=== PATIENT | female | born 1960 | race Caucasian/White ===

== ENCOUNTER 2019-02-06 20:35 | Emergency (ER) | payer OTHER ==
[~2019-02-06] VITALS: Ht 162 cm; Wt 73.8 kg
[2019-02-06 20:48] VITALS: BP 135/91
--- NOTE | 2019-02-06 21:37 | NUR ---
Registration to nurses station at this time to report that pt LWBS
== END 2019-02-06 21:22 | disposition left against medical advice (07) ==
LOC: ER 20:36
DX: M79.622 Pain in left upper arm (principal); R22.1 Localized swelling, mass and lump, neck; R22.32 Localized swelling, mass and lump, left upper limb

== ENCOUNTER 2019-03-01 17:05 | Emergency (ER) | payer SELFPAY ==
[~2019-03-01] VITALS: Ht 162.5 cm; Wt 73.8 kg
--- NOTE | 2019-03-01 17:14 | ED GI ---
General Chief Complaint: Abdominal/GI Problems Stated Complaint: WEAKNESS Nursing Triage Note: Pt to ED via EMS. Pt c/o diarrhea, and L shoulder pain. Diarrhea began with meth use 4 days ago. Pt reports shoulder pain is ongoing. Pt c/o nausea and cramping. Sepsis Screen: No Definite Risk Source of Information: Patient, EMS Exam Limitations: No Limitations History of Present Illness Date Seen by Provider: Mar 01, 2019 Time Seen by Provider: 17:12 Initial Comments To ER per EMS from the [facility] where she is living with reports of a 4 day history of crampy abdominal pain diffusely, non-bloody diarrhea, nausea. This began after using methamphetamine which she uses via "snorting" a few times a week. She denies alcohol or other drug use. She just moved here from [place], states that she is supposed to be on medication such as Carafate and Protonix for her ulcers and is supposed to be on an unknown medication for her heart following a "silent heart attack" 5 years ago. Also complains of left shoulder pain 3 months without preceding injury, pain worse with movement. Timing/Duration: 3-4 Days Severity/Quality: Cramping Location: Generalized Abdomen Radiation: No Radiation Activities at Onset: None Associated Symptoms: Denies Symptoms Allergies and Home Medications Allergies Coded Allergies: No Known Drug Allergies (Unverified , 03/01/19) Patient Home Medication List Home Medication List Reviewed: Yes Review of Systems Review of Systems Constitutional: see HPI EENTM: No Symptoms Reported Respiratory: No Symptoms Reported Cardiovascular: No Symptoms Reported Gastrointestinal: See HPI, Abdominal Pain, Diarrhea, Nausea Genitourinary: No Symptoms Reported Musculoskeletal: no symptoms reported Skin: no symptoms reported Psychiatric/Neurological: No Symptoms Reported Endocrine: No Symptoms Reported Hematologic/Lymphatic: No Symptoms Reported Past Enmdnrg-Ojivme-Xkamqv Hx Patient Social History Type Used: Cigarettes 2nd Hand Smoke Exposure: Yes Recent Foreign Travel: No (N) Contact w/Someone Who Travel: No Recent Infectious Disease Expo: No Recent Hopitalizations: No Immunizations Up To Date PED Vaccines UTD: Yes Seasonal Allergies Seasonal Allergies: No Past Medical History Surgeries: No Respiratory: No Cardiac: Yes Heart Attack, Hypertension Neurological: Yes (heat stroke) Genitourinary: No Ulcer Musculoskeletal: No Endocrine: No HEENT: No Cancer: No Psychosocial: No Integumentary: No Physical Exam Vital Signs Vital Signs - First Documented 12/31/19 17:05 Temp 37.8 Pulse 96 Resp 20 B/P (MAP) 106/69 (81) Pulse Ox 97 O2 Delivery Room Air Capillary Refill : Less Than 3 Seconds Height/Weight/BMI Height: '" Weight: lbs. oz. kg; 27.00 BMI Method: General Appearance: WD/WN, no apparent distress HEENT: PERRL/EOMI, normal ENT inspection Neck: non-tender, full range of motion Respiratory: no respiratory distress, no accessory muscle use Gastrointestinal: normal bowel sounds, non tender, soft Extremities: normal range of motion, non-tender Neurologic/Psychiatric: alert, normal mood/affect, oriented x 3 Skin: normal color, warm/dry Progress/Results/Core Measures Results/Orders Lab Results Laboratory Tests Test 03/01/19 17:10 03/01/19 18:25 Range/Units White Blood Count 12.0 H 4.3-11.0 10^3/uL Red Blood Count 4.29 L 4.35-5.85 10^6/uL Hemoglobin 12.3 11.5-16.0 G/DL Hematocrit 37 35-52 % Mean Corpuscular Volume 86 80-99 FL Mean Corpuscular Hemoglobin 29 25-34 PG Mean Corpuscular Hemoglobin Concent 33 32-36 G/DL Red Cell Distribution Width 13.0 10.0-14.5 % Platelet Count 228 130-400 10^3/uL Mean Platelet Volume 11.1 H 7.4-10.4 FL Neutrophils (%) (Auto) 74 42-75 % Lymphocytes (%) (Auto) 10 L 12-44 % Monocytes (%) (Auto) 15 H 0-12 % Eosinophils (%) (Auto) 1 0-10 % Basophils (%) (Auto) 0 0-10 % Neutrophils # (Auto) 8.9 H 1.8-7.8 X 10^3 Lymphocytes # (Auto) 1.3 1.0-4.0 X 10^3 Monocytes # (Auto) 1.7 H 0.0-1.0 X 10^3 Eosinophils # (Auto) 0.1 0.0-0.3 10^3/uL Basophils # (Auto) 0.0 0.0-0.1 10^3/uL Sodium Level 134 L 135-145 MMOL/L Potassium Level 3.3 L 3.6-5.0 MMOL/L Chloride Level 103 98-107 MMOL/L Carbon Dioxide Level 18 L 21-32 MMOL/L Anion Gap 13 5-14 MMOL/L Blood Urea Nitrogen 10 7-18 MG/DL Creatinine 0.87 0.60-1.30 MG/DL Estimat Glomerular Filtration Rate > 60 BUN/Creatinine Ratio 11 Glucose Level 113 H 70-105 MG/DL Calcium Level 8.1 L 8.5-10.1 MG/DL Corrected Calcium 8.6 8.5-10.1 MG/DL Total Bilirubin 0.3 0.1-1.0 MG/DL Aspartate Amino Transf (AST/SGOT) 10 5-34 U/L Alanine Aminotransferase (ALT/SGPT) 10 0-55 U/L Alkaline Phosphatase 64 40-136 U/L Total Protein 5.9 L 6.4-8.2 GM/DL Albumin 3.4 3.2-4.5 GM/DL Urine Color YELLOW Urine Clarity CLEAR Urine pH 6.0 5-9 Urine Specific [place] <=1.005 1.016-1.022 Urine Protein NEGATIVE NEGATIVE Urine Glucose (UA) NEGATIVE NEGATIVE Urine Ketones NEGATIVE NEGATIVE Urine Nitrite NEGATIVE NEGATIVE Urine Bilirubin NEGATIVE NEGATIVE Urine Urobilinogen 0.2 < = 1.0 MG/DL Urine Leukocyte Esterase NEGATIVE NEGATIVE Urine RBC (Auto) NEGATIVE NEGATIVE Urine RBC NONE /HPF Urine WBC RARE /HPF Urine Squamous Epithelial Cells 0-2 /HPF Urine Crystals NONE /LPF Urine Bacteria MODERATE H /HPF Urine Casts NONE /LPF Urine Mucus NEGATIVE /LPF Urine Culture Indicated NO Urine Opiates Screen POSITIVE H NEGATIVE Urine Oxycodone Screen NEGATIVE NEGATIVE Urine Methadone Screen NEGATIVE NEGATIVE Urine Propoxyphene Screen NEGATIVE NEGATIVE Urine Barbiturates Screen NEGATIVE NEGATIVE Ur Tricyclic Antidepressants Screen NEGATIVE NEGATIVE Urine Phencyclidine Screen NEGATIVE NEGATIVE Urine Amphetamines Screen NEGATIVE NEGATIVE Urine Methamphetamines Screen NEGATIVE NEGATIVE Urine Benzodiazepines Screen NEGATIVE NEGATIVE Urine Cocaine Screen NEGATIVE NEGATIVE Urine Cannabinoids Screen NEGATIVE NEGATIVE My Orders Orders - ALLISON TAYLOR INCOMING INSPECTOR Cbc With Automated Diff (03/01/19 17:10) Comprehensive Metabolic Panel (03/01/19 17:10) Ua Culture If Indicated (03/01/19 17:10) Drug Screen Stat (Urine) (03/01/19 17:10) Ed Iv/Invasive Line Start (03/01/19 17:10) Lactated Ringers (Lr 1000 Ml Iv Solution (03/01/19 17:15) Ondansetron Injection (Zofran Injectio (03/01/19 17:15) Hyoscyamine Sl Tablet (Levsin Sl Tablet) (03/01/19 17:15) Ibuprofen Tablet (Motrin Tablet) (03/01/19 17:15) Shoulder, Left, 3 Views (03/01/19 17:14) Chest 1 View, Ap/Pa Only (03/01/19 17:14) Naloxone Injection (Narcan Injection) (03/01/19 18:55) Medications Given in ED Current Medications Medications Dose Ordered Sig/Carmelo Route Start Time Stop Time Status Last Admin Dose Admin Hyoscyamine Sulfate 0.25 mg ONCE ONCE PO 03/01/19 17:15 03/01/19 17:16 DC 03/01/19 17:17 0.25 MG Ibuprofen 800 mg ONCE ONCE PO 03/01/19 17:15 03/01/19 17:16 DC 03/01/19 17:18 800 MG Naloxone HCl 0.4 mg STK-MED ONCE .ROUTE 03/01/19 18:55 03/01/19 18:59 DC 03/01/19 18:59 0.4 MG Ondansetron HCl 8 mg ONCE ONCE IVP 03/01/19 17:15 03/01/19 17:16 DC 03/01/19 17:17 8 MG Vital Signs/I&O 03/01/19 17:05 Temp 37.8 Pulse 96 Resp 20 B/P (MAP) 106/69 (81) Pulse Ox 97 O2 Delivery Room Air Blood Pressure Mean: 81 Diagnostic Imaging Diagonstic Imaging: Xray Comments NAME: MARICHUY BUSTAMANTE [facility] REC#: [id number] PT STATUS: REG ER : 1960 PHYSICIAN: ALLISON TAYLOR APRN ADMIT DATE: 03/01/19/ER Signed Date of Exam:03/01/19 CHEST 1 VIEW, AP/PA ONLY INDICATION: Chest pain, nausea. COMPARISON: None. FINDINGS: Single view of the chest demonstrates clear lungs bilaterally. The heart is normal. There is no pneumothorax. Osseous structures are normal. IMPRESSION: Negative chest. Dictated by: Dictated on workstation # [id number] Dict: 03/01/191750 Trans: 03/01/191754 [id number] Interpreted by: RAHUL TRENT Electronically signed by: RAHUL TRENT 03/01/191754 Departure Communication (Admissions) 1906-patient was alert and oriented upon arrival talking on the cell phone and ambulatory to the bathroom. At this time she has snoring respirations, and arousable to loud verbal stimuli or painful stimuli such as a sternal rub. She then went back to sleep, 0.4 mg of Narcan was given with no effect, she then aw akened with a sternal rub to have a coherent conversation. We will observe her for a bit longer for this reason. Impression Primary Impression: Nausea vomiting and diarrhea Additional Impression: Substance abuse Disposition: 01 HOME, SELF-CARE Condition: Improved Departure-Patient Inst. Decision time for Depature: 18:55 Referrals: NO,LOCAL PHYSICIAN (PCP/Family) Primary Care Physician Patient Instructions: No Instuctions Given Add. Discharge Instructions: 1. Drink plenty of fluids such as Gatorade or Pedialyte 2. Return to ER for any concerns 3. Follow-up with one of the physicians listed. All discharge instructions reviewed with patient and/or family. Voiced underst anding. Work/School Note: Local Medical Staff Listing ALLISON TAYLOR APRN Mar 01, 2019 17:14
[2019-03-01] MEDS ORDERED: ONDANSETRON 4 MG/2 ML (SDV) Z0FRAN IVP ONE (17:15)
[2019-03-01] MEDS ORDERED: HYOSCYAMINE 0.125 MG (LEVSIN) TAB PO ONE (17:15)
[2019-03-01] MEDS ORDERED: IBUPROFEN 800 MG (MOTRIN) TAB PO ONE (17:15)
[2019-03-01] MEDS ORDERED: LACTATED RINGERS 1,000 ML IV SCH (17:15)
[2019-03-01 17:22] LABS: BASOPHILS % (AUTO) 0 % (0-10); EOSINOPHILS # (AUTO) 0.1 10^3/uL (0.0-0.3); EOSINOPHILS % (AUTO) 1 % (0-10); HEMATOCRIT 37 % (35-52); HEMOGLOBIN 12.3 G/DL (11.5-16.0); LYMPHOCYTES # (AUTO) 1.3 X 10^3 (1.0-4.0); LYMPHOCYTES % (AUTO) 10 % (12-44); MEAN CORPUSCULAR HEMOGLOBIN 29 PG (25-34); MEAN CORPUSCULAR HGB CONC 33 G/DL (32-36); MEAN CORPUSCULAR VOLUME 86 FL (80-99); MEAN PLATELET VOLUME 11.1 FL (7.4-10.4); MONOCYTES # (AUTO) 1.7 X 10^3 (0.0-1.0); MONOCYTES % (AUTO) 15 % (0-12); NEUTROPHILS # (AUTO) 8.9 X 10^3 (1.8-7.8); NEUTROPHILS % (AUTO) 74 % (42-75); PLATELET COUNT 228 10^3/uL (130-400)
[2019-03-01 17:38] LABS: ALANINE AMINOTRANSFERASE 10 U/L (0-55); ALBUMIN 3.4 GM/DL (3.2-4.5); ALKALINE PHOSPHATASE 64 U/L (40-136); BILIRUBIN,TOTAL 0.3 MG/DL (0.1-1.0); BUN/CREATININE RATIO 11; CALCIUM 8.1 MG/DL (8.5-10.1); CARBON DIOXIDE 18 MMOL/L (21-32); CHLORIDE 103 MMOL/L (98-107); CREATININE SERUM 0.87 MG/DL (0.60-1.30); GFR ESTIMATED > 60; GLUCOSE 113 MG/DL (70-105); POTASSIUM 3.3 MMOL/L (3.6-5.0); SODIUM 134 MMOL/L (135-145); TOTAL PROTEIN 5.9 GM/DL (6.4-8.2)
--- NOTE | 2019-03-01 17:45 | NUR ---
1 liter NS from EMS infused
--- NOTE | 2019-03-01 17:53 | Diagnostic Imaging Report ---
INDICATION: Left shoulder pain. COMPARISON: None. FINDINGS: Three views of the left shoulder demonstrate no fracture or dislocation. Articular surface is normal. No osseous lesion. IMPRESSION: Negative left shoulder. Dictated by: Dictated on workstation # [id number]
--- NOTE | 2019-03-01 17:53 | Diagnostic Imaging Report ---
INDICATION: Chest pain, nausea. COMPARISON: None. FINDINGS: Single view of the chest demonstrates clear lungs bilaterally. The heart is normal. There is no pneumothorax. Osseous structures are normal. IMPRESSION: Negative chest. Dictated by: Dictated on workstation # [id number]
[2019-03-01 18:34] LABS: BILIRUBIN,URINE NEGATIVE (NEGATIVE); CLARITY,URINE CLEAR; COLOR,URINE YELLOW; GLUCOSE, URINE (UA) NEGATIVE (NEGATIVE); KETONES,URINE NEGATIVE (NEGATIVE); LEUKOCYTE ESTERASE ,URINE NEGATIVE (NEGATIVE); NITRITE,URINE NEGATIVE (NEGATIVE); PROTEIN,URINE NEGATIVE (NEGATIVE)
[2019-03-01 18:40] LABS: BACTERIA,URINE MODERATE /HPF; SQUAMOUS EPITHELIAL CELL,UR 0-2 /HPF; WBC,URINE RARE /HPF
--- NOTE | 2019-03-01 18:40 | NUR ---
Pt now snoring and difficult to arouse. Had to perfom sternal rub on pt to arouse pt.
[2019-03-01 18:45] LABS: AMPHETAMINE SCREEN, URINE NEGATIVE (NEGATIVE); BARBITURATE SCREEN URINE NEGATIVE (NEGATIVE); BENZODIAZEPINES SCREEN URINE NEGATIVE (NEGATIVE); CANNABINOID SCREEN, URINE NEGATIVE (NEGATIVE); COCAINE SCREEN URINE NEGATIVE (NEGATIVE); METHADONE STAT NEGATIVE (NEGATIVE); METHAMPHETAMINE SCREEN URINE S NEGATIVE (NEGATIVE); OPIATE SCREEN URINE POSITIVE (NEGATIVE); OXYCODONE STAT NEGATIVE (NEGATIVE); PROPOXYPHENE STAT NEGATIVE (NEGATIVE); TRICYCLIC ANTIDEPRESSANTS SCRE NEGATIVE (NEGATIVE)
--- NOTE | 2019-03-01 18:48 | NUR ---
report given to OLIVIA Slaughter
[2019-03-01] MEDS ORDERED: NALOXONE 0.4 MG/ML 1 ML (NARCAN) VIAL ONE (18:55)
[2019-03-01 19:10] VITALS: BP 100/62
== END 2019-03-01 19:13 | disposition home or self-care (01) ==
LOC: EDUNIT# 17:05 → ER 17:07
DX: R11.2 Nausea with vomiting, unspecified (principal); R19.7 Diarrhea, unspecified; F15.10 Other stimulant abuse, uncomplicated; I10 Essential (primary) hypertension; I25.2 Old myocardial infarction; Z77.22 Contact with and (suspected) exposure to environmental tobacco smoke (acute) (chronic)
CPT/HCPCS: 36415; 71045; 73030; 80053; 80306; 81000; 85025; 96361; 96374; 96375

== ENCOUNTER 2020-10-11 09:21 | Inpatient (IN) | payer SELFPAY ==
[~2020-10-11] VITALS: Ht 162 cm; Wt 73.0 kg
[2020-10-11 10:27] LABS: BASOPHILS # (AUTO) 0.1 10^3/uL (0.0-0.1); BASOPHILS % (AUTO) 1 % (0-10); EOSINOPHILS # (AUTO) 0.6 10^3/uL (0.0-0.3); EOSINOPHILS % (AUTO) 5 % (0-10); HEMATOCRIT 32 % (35-52); HEMOGLOBIN 10.2 g/dL (11.5-16.0); LYMPHOCYTES # (AUTO) 1.6 10^3/uL (1.0-4.0); LYMPHOCYTES % (AUTO) 13 % (12-44); MEAN CORPUSCULAR HEMOGLOBIN 29 pg (25-34); MEAN CORPUSCULAR HGB CONC 32 g/dL (32-36); MEAN CORPUSCULAR VOLUME 91 fL (80-99); MEAN PLATELET VOLUME 10.3 fL (9.0-12.2); MONOCYTES % (AUTO) 9 % (0-12); NEUTROPHILS # (AUTO) 8.3 10^3/uL (1.8-7.8); NEUTROPHILS % (AUTO) 71 % (42-75); PLATELET COUNT 405 10^3/uL (130-400); WHITE BLOOD COUNT 11.7 10^3/uL (4.3-11.0)
[2020-10-11 10:33] LABS: PROTHROMBIN TIME PATIENT 13.5 SEC (12.2-14.7)
[2020-10-11 10:34] LABS: POTASSIUM 4.3 MMOL/L (3.6-5.0)
[2020-10-11 10:35] LABS: CALCIUM 9.2 MG/DL (8.5-10.1)
[2020-10-11 10:36] LABS: TOTAL PROTEIN 7.7 GM/DL (6.4-8.2)
[2020-10-11 10:38] LABS: BILIRUBIN,TOTAL 0.4 MG/DL (0.1-1.0)
[2020-10-11 10:40] LABS: CREATININE SERUM 0.89 MG/DL (0.60-1.30)
[2020-10-11] MEDS ORDERED: HOLD METFORMIN - RECEIVED CONTRAST 20 ML VIAL IV SCH ×2 (10:45→11:00)
[2020-10-11] MEDS ORDERED: IOHEXOL 350 MG/ML 100 ML (OMNIPAQUE 350) VIAL IV ONE ×2 (10:45→11:00)
[2020-10-11] MEDS ORDERED: NS 100 ML (IVPB) BAG IV ONE ×2 (10:45→11:00)
--- NOTE | 2020-10-11 10:47 | ED Lower Extremity ---
General Chief Complaint: Lower Extremity Stated Complaint: SOB, RED LINE R LEG Nursing Triage Note: ARRIVED VIA POV FROM [facility]. PT WENT TO THEIR CLINIC FOR A POST COVID FOLLOW UP. ARRIVED WITH SOA, BRUISING TO RIGHT LEG WITH A RED STREAK. PT COMPLAINS OF PAIN IN THE LEG. STATES IT WAS BRUISED OVER 2 WEEKS AGO. Source: patient Exam Limitations: no limitations History of Present Illness Date Seen by Provider: Oct 11, 2020 Time Seen by Provider: 09:58 Initial Comments 60-year-old female with past medical history of CAD and hypertension coming in because she is feeling short of breath from [facility] (has no PCP) and was hypoxic there as well. In review of her most recent history, she was diagnosed with Covid September 14 per the patient. At that time she was having fever, cough, and body aches. That improved and she did have some shortness of breath that has not improved however. She states this has been progressive, now is moderate to severe, and constant. Worse with exertion. She had follow-up today and she was referred here. She also noticed a bruise to her right inner thigh about 2 weeks ago with some streaking down her leg at that time as well which has been unchanged. Denies any chest pain, fever, abdominal pain, nausea, vomiting, diarrhea, focal weakness or numbness, or any other conc erns. She denies any previous history of blood clots in her legs or lungs, hemoptysis, or any recent large surgeries. Allergies and Home Medications Allergies Coded Allergies: No Known Drug Allergies (Unverified , 03/01/19) Patient Home Medication List Home Medication List Reviewed: Yes Review of Systems Constitutional: No fever EENTM: No blurred vision Respiratory: cough, short of breath Cardiovascular: No chest pain Gastrointestinal: No abdominal pain, No diarrhea, No nausea, No vomiting Genitourinary: No dysuria : No Musculoskeletal: No back pain Skin: other (Bruising to right inner thigh with a reddish streak going down the leg) Psychiatric/Neurological: Denies Anxiety, Denies Depressed All Other Systems Reviewed Negative Unless Noted: Yes Past Bbfrvix-Bllero-Hdciux Hx Patient Social History Smoking Status: Current Everyday Smoker Substance use?: No Alcohol Use?: No Immunizations Up To Date PED Vaccines UTD: Yes Seasonal Allergies Seasonal Allergies: No Past Medical History Surgeries: No Respiratory: No Cardiac: Yes Heart Attack, Hypertension Neurological: Yes (heat stroke) Genitourinary: No Ulcer Musculoskeletal: No Endocrine: No HEENT: No Cancer: No Psychosocial: No Integumentary: No Physical Exam Vital Signs Vital Signs - First Documented 10/11/20 09:25 Temp 36.6 Pulse 100 Resp 16 B/P (MAP) 113/84 (94) Pulse Ox 88 O2 Delivery Room Air O2 Flow Rate 2.00 Capillary Refill : Less Than 3 Seconds Height, Weight, BMI Height: '" Weight: lbs. oz. kg; 26.00 BMI Method: General Appearance: WD/WN, mild distress HEENT: PERRL/EOMI, normal ENT inspection, TMs normal, pharynx normal Neck: non-tender, full range of motion, supple, normal inspection Cardiovascular: regular rate, rhythm, no edema, no murmur Respiratory: chest non-tender, no accessory muscle use, crackles, other (Mildly tachypneic) Gastrointestinal: normal bowel sounds, non tender, soft; No distended, No guarding, No rebound Back: normal inspection, no CVA tenderness, no vertebral tenderness Legs: left leg non-tender; right leg ecchymosis, right leg soft tissue tenderness Neurologic/Psychiatric: no motor/sensory deficits, alert, normal mood/affect Skin: normal color, warm/dry, other (Bruise to the right inner thigh with a palpable linear streak on the medial calf as well) Lymphatic: no adenopathy Progress/Results/Core Measures Results/Orders Lab Results Laboratory Tests Test 10/11/20 09:46 10/11/20 12:05 Range/Units White Blood Count 11.7 H 4.3-11.0 10^3/uL Red Blood Count 3.54 L 3.80-5.11 10^6/uL Hemoglobin 10.2 L 11.5-16.0 g/dL Hematocrit 32 L 35-52 % Mean Corpuscular Volume 91 80-99 fL Mean Corpuscular Hemoglobin 29 25-34 pg Mean Corpuscular Hemoglobin Concent 32 32-36 g/dL Red Cell Distribution Width 14.3 10.0-14.5 % Platelet Count 405 H 130-400 10^3/uL Mean Platelet Volume 10.3 9.0-12.2 fL Immature Granulocyte % (Auto) 1 % Neutrophils (%) (Auto) 71 42-75 % Lymphocytes (%) (Auto) 13 12-44 % Monocytes (%) (Auto) 9 0-12 % Eosinophils (%) (Auto) 5 0-10 % Basophils (%) (Auto) 1 0-10 % Neutrophils # (Auto) 8.3 H 1.8-7.8 10^3/uL Lymphocytes # (Auto) 1.6 1.0-4.0 10^3/uL Monocytes # (Auto) 1.0 0.0-1.0 10^3/uL Eosinophils # (Auto) 0.6 H 0.0-0.3 10^3/uL Basophils # (Auto) 0.1 0.0-0.1 10^3/uL Immature Granulocyte # (Auto) 0.1 0.0-0.1 10^3/uL Prothrombin Time 13.5 12.2-14.7 SEC INR Comment 1.0 0.8-1.4 Activated Partial Thromboplast Time 39 H 24-35 SEC Sodium Level 140 135-145 MMOL/L Potassium Level 4.3 3.6-5.0 MMOL/L Chloride Level 102 98-107 MMOL/L Carbon Dioxide Level 26 21-32 MMOL/L Anion Gap 12 5-14 MMOL/L Blood Urea Nitrogen 13 7-18 MG/DL Creatinine 0.89 0.60-1.30 MG/DL Estimat Glomerular Filtration Rate 65 BUN/Creatinine Ratio 15 Glucose Level 103 70-105 MG/DL Calcium Level 9.2 8.5-10.1 MG/DL Corrected Calcium 10.0 8.5-10.1 MG/DL Total Bilirubin 0.4 0.1-1.0 MG/DL Aspartate Amino Transf (AST/SGOT) 14 5-34 U/L Alanine Aminotransferase (ALT/SGPT) 9 0-55 U/L Alkaline Phosphatase 86 40-136 U/L Troponin I 0.294 *H 0.277 H <0.028 NG/ML B-Type Natriuretic Peptide 2747.2 H <100.0 PG/ML Total Protein 7.7 6.4-8.2 GM/DL Albumin 3.0 L 3.2-4.5 GM/DL SARS-CoV-2 RNA (RT-PCR) Not Detected Not Detecte My Orders Orders - ALBERT EMMANUEL MD Covid 19 Inhouse Test (10/11/20 10:20) Cbc With Automated Diff (10/11/20 10:20) Ekg Tracing (10/11/20 10:20) Comprehensive Metabolic Panel (10/11/20 10:20) Protime With Inr (10/11/20 10:20) Partial Thromboplastin Time (10/11/20 10:20) O2 (10/11/20 10:20) Monitor-Rhythm Ecg Trace Only (10/11/20 10:20) Ed Iv/Invasive Line Start (10/11/20 10:20) BNP (10/11/20 10:20) Troponin I (10/11/20 10:20) Ct Angio Chest W (10/11/20 10:20) Iohexol Injection (Omnipaque 350 Mg/Ml 1 (10/11/20 10:45) Received Contrast (Hold Metformin- Contr (10/11/20 10:45) Ns (Ivpb) (Sodium Chloride 0.9% Ivpb Bag (10/11/20 10:45) Troponin I (10/11/20 12:00) Aspirin Chewable Tablet (Baby Aspirin Ch (10/11/20 11:00) Heparin Drip 90578 Unit/500ml (Heparin (10/11/20 11:30) Heparin (Bolus Per Protocol) (Heparin (B (10/11/20 11:30) Medications Given in ED Current Medications Medications Dose Ordered Sig/Carmelo Route Start Time Stop Time Status Last Admin Dose Admin Aspirin 324 mg ONCE ONCE PO 10/11/20 11:00 10/11/20 11:02 DC 10/11/20 11:06 324 MG Heparin Sodium (Porcine) HEPARIN FULL PROTOC... ONCE ONCE IV 10/11/20 11:30 10/11/20 11:31 DC 10/11/20 11:41 5,000 UNIT Heparin Sodium/ Dextrose 500 ml @ 0 mls/hr Q0M ONCE IV 10/11/20 11:30 10/11/20 11:31 DC 10/11/20 11:44 24 MLS/HR Iohexol 75 ml ONCE ONCE IV 10/11/20 11:00 10/11/20 11:02 DC 10/11/20 11:26 63 ML Sodium Chloride 10 ml NEEDED PRN IV 10/11/20 11:00 10/11/20 11:26 10 ML Sodium Chloride 100 ml ONCE ONCE IV 10/11/20 11:00 10/11/20 11:02 DC 10/11/20 11:26 80 ML Vital Signs/I&O 10/11/20 10/11/20 09:25 09:25 Temp 36.6 Pulse 100 Resp 16 B/P (MAP) 113/84 (94) Pulse Ox 88 O2 Delivery Room Air Nasal Cannula O2 Flow Rate 2.00 Blood Pressure Mean: 94 Progress Progress Note : Progress Note 60-year-old female with above history coming in due to shortness of breath in the setting of being almost 1 month out from [email or web address]. ABCs were intact although she was mildly hypoxic to 88% when I turned off her supplemental oxygen. I turned it back up to 2 L and her oxygen saturation remained above 94%. Lungs with crackles in the bases. She does have some tenderness to palpation of her right calf. Her Well's score is 7.5 putting her in the high risk category for a PE. We will place an IV and get a CT PE study to further assess for this. If this is positive, then we will treat empirically and not get an ultrasound of her right leg. If this is negative, we will get an ultrasound of her right leg to assess for DVT. CT was positive on my interpretation for a PE. BNP elevated just under 3000 and troponin elevated just under 0.3. Troponin was positive just before CT was performed, and I gave her full dose aspirin. EKG with right bundle branch block with no previous EKG here to compare to, and I suspect this is new with her pulmonary embolism. Fortunately, her blood pressure is normal and heart rate is right around 100. Her clinical picture puts her in the sub-massive PE grade. Heparin started, Dr. Brody contacted at 11:28am who agreed to admit the patient to the ICU. I contacted Dr. Modi, cardiology, at 11:37am who follow along, but he does not perform any catheter directed interventions for PE's. I discussed with the patient and she would like to be full code. She will be admitted to the intensive care unit for further evaluation and management. Initial ECG Impression Date: Oct 11, 2020 Initial ECG Impression Time: 11:10 Initial ECG Rate: 104 Comment sinus tachycardia with a wide QRS with a right bundle branch pattern, no significant ST changes, no prior EKG to compare to Diagnostic Imaging Diagonstic Imaging: CT Plain Films/CT/US/NM/MRI: chest Comments CT chest my interpretation with a pulmonary emboli on the right main bronchial artery [facility] [place] [place] NAME: MARICHUY BUSTAMANTE [facility] REC#: [id number] PT STATUS: REG ER : 1960 PHYSICIAN: ALBERT EMMANUEL MD ADMIT DATE: 10/11/20/ER Draft Date of Exam:10/11/20 CT ANGIO CHEST W PROCEDURE: CT angiography Chest TECHNIQUE: After intravenous administration of contrast, thin section axial CT angiography of the chest was performed. 3D MIP reconstructions were made. All CT scans use one or more of the following dose optimizing techniques: automated exposure control, MA and/or KvP adjustment based on a patient size and exam type, or iterative reconstruction. INDICATION: Shortness of air. COMPARISON: None available. FINDINGS: Vasculature: There is a moderate burden of bilateral acute pulmonary emboli. The largest component is located in the distal right main pulmonary artery with extension right upper interlobar segment. Bilateral lower lobe segmental and subsegmental pulmonary emboli are present. No dilation of the pulmonary trunk. No features right ventricular strain. The ascending aorta is aneurysmal measuring 4.5 cm. No aortic dissection. Heart and mediastinum: 1.7 x 1.1 cm hypodense right thyroid nodule. Numerous small subcentimeter mediastinal and hilar lymph nodes are likely reactive in nature. Heart is enlarged with left ventricular hypertrophy. No pericardial effusion. Pleura: No pleural effusion or pneumothorax. Lungs and airway: No endoluminal lesion in the trachea or central bronchi. There is a mixture of bilateral groundglass opacities and consolidations throughout all 5 lobes. Upper abdomen: Mineralizations within the renal medulla likely due to areas of nephrocalcinosis. Infrarenal abdominal aorta measures up to 3.7 cm. Musculoskeletal: No concerning osseous lesion. IMPRESSION: 1. Moderate to large burden of acute bilateral pulmonary emboli with the most central emboli located in the distal right main pulmonary artery. 2. Bilateral pulmonary consolidations and ground glass opacities are likely due to sequelae of recent Covid 19 pneumonia. There are some subpleural bands present potentially due to early pulmonary fibrosis. Advise follow-up CT chest without contrast in 6-8 weeks to reassess the degree of fibrosis versus pneumonitis. 3. Ascending aortic aneurysm measures up to 4.5 cm. Infrarenal abdominal aneurysm measures up to 3.7 cm. No acute aortic dissection. Findings of acute pulmonary emboli were discussed with Albert Emmanuel MD at 12:00 PM on 10/11/2020. Dictated on workstation # [id number] Dict: 10/11/20 1150 Trans: 10/11/20 1209 [id number] Interpreted by: NANO BARONE MD Electronically signed by: Departure Impression Primary Impression: Pulmonary embolism Qualified Codes: I26.99 - Other pulmonary embolism without acute cor pulmonale Additional Impressions: Respiratory failure Qualified Codes: J96.01 - Acute respiratory failure with hypoxia NSTEMI (non-ST elevated myocardial infarction) Disposition: ADMITTED INPATIENT Condition: Stable Admissions Decision to Admit Reason: Admit from ER (General) Decision to Admit/Date: Oct 11, 2020 Time/Decision to Admit Time: 11:27 Departure-Patient Inst. Referrals: NO,LOCAL PHYSICIAN (PCP/Family) Primary Care Physician ALBERT EMMANUEL MD Oct 11, 2020 10:47
[2020-10-11] MEDS ORDERED: ASPIRIN 81 MG CHEW (CHILDREN'S ASA) PO ONE (11:00)
[2020-10-11] MEDS ORDERED: CATHETER FLUSH 10 ML SYR IV PRN ×2 (11:00→16:30)
[2020-10-11] MEDS ORDERED: HEParin DRIP 25000 UNIT/500ML 500 ML IV ONE (11:30)
[2020-10-11] MEDS ORDERED: HEParin 1000 UNIT/ML (10ML VIAL) FOR BOLUS IV ONE (11:30)
--- NOTE | 2020-10-11 12:09 | Diagnostic Imaging Report ---
PROCEDURE: CT angiography Chest TECHNIQUE: After intravenous administration of contrast, thin section axial CT angiography of the chest was performed. 3D MIP reconstructions were made. All CT scans use one or more of the following dose optimizing techniques: automated exposure control, MA and/or KvP adjustment based on a patient size and exam type, or iterative reconstruction. INDICATION: Shortness of air. COMPARISON: None available. FINDINGS: Vasculature: There is a moderate burden of bilateral acute pulmonary emboli. The largest component is located in the distal right main pulmonary artery with extension right upper interlobar segment. Bilateral lower lobe segmental and subsegmental pulmonary emboli are present. No dilation of the pulmonary trunk. No features right ventricular strain. The ascending aorta is aneurysmal measuring 4.5 cm. No aortic dissection. Heart and mediastinum: 1.7 x 1.1 cm hypodense right thyroid nodule. Numerous small subcentimeter mediastinal and hilar lymph nodes are likely reactive in nature. Heart is enlarged with left ventricular hypertrophy. No pericardial effusion. Pleura: No pleural effusion or pneumothorax. Lungs and airway: No endoluminal lesion in the trachea or central bronchi. There is a mixture of bilateral groundglass opacities and consolidations throughout all 5 lobes. Upper abdomen: Mineralizations within the renal medulla likely due to areas of nephrocalcinosis. Infrarenal abdominal aorta measures up to 3.7 cm. Musculoskeletal: No concerning osseous lesion. IMPRESSION: 1. Moderate to large burden of acute bilateral pulmonary emboli with the most central emboli located in the distal right main pulmonary artery. 2. Bilateral pulmonary consolidations and ground glass opacities are likely due to sequelae of recent Covid 19 pneumonia. There are some subpleural bands present potentially due to early pulmonary fibrosis. Advise follow-up CT chest without contrast in 6-8 weeks to reassess the degree of fibrosis versus pneumonitis. 3. Ascending aortic aneurysm measures up to 4.5 cm. Infrarenal abdominal aneurysm measures up to 3.7 cm. No acute aortic dissection. Findings of acute pulmonary emboli were discussed with Adan Apple MD at 12:00 PM on 10/11/2020. Dictated by: Dictated on workstation # [id number]
--- NOTE | 2020-10-11 15:25 | Tele-ICU Consult ---
History of Present Illness History of Present Illness Date Seen by Provider: Oct 11, 2020 Time Seen by Provider: 15:00 Date of Admission This virtual visit was conducted using real time audio/video. Thank you for asking us to see this patient for respiratory insufficiency and distress due to B PEs and B Covid pna. Covid dxed 09/14/20. HPC: Recent events: Admitted this PM through ER with O2 sts 88% on RA. Placed on NC 2 LPM. PMH: CAD HTN. SH: smoking history: Yes, currently. FH: Non-contributory ROS: as in HPI PE: Cachectic, cofortable appearing. VSS HR BP RR O2 sat 94% on 2LPMon HEENT: No obvious masses, adenopathy or JVD. Chest: crackles on auscultation. CV: RRR S1 S2 No murmur or added sounds. Abd: Non-tender. Bowel sounds Y. : Unremarkable. Av[place] N . DISTRIBUTION COLLECTION OPERATOR/psychiatric: Alert and oriented, grossly intact. No obvious focal findings. Extremities:No edema. Capillary refill < 3 seconds. Skin: unremarkable. Results: Elevated BNP 2747, WCC 11.7. Decreased Hb 10.2 Albumin 3.0. CTC w B GGOs and B PEs. A/P: Respiratory insufficiency/distress: Cont NC Available chart/ vitals / labs / images reviewed. Video assessment done using teleICU camera, rest of exam as per RN. Respiratory: Continue present management with NC, heparin. Monitor for increasing oxygenation needs and/or need for NIV/intubation. Critical Care: critically ill patient. Discussed with OLIVIA León. Asked RN to reach out to eICU if any questions or concerns later. Time spent with patient/coordination of care with other health professionals (mins): 20 Allergies and Home Medications Allergies Coded Allergies: No Known Drug Allergies (Unverified , 03/01/19) Past Medical/Social/Family Hx Patient Social History Smoking Status: Current Everyday Smoker Substance use?: No Alcohol Use?: No Current Status Advance Directives: No Preferred Spoken Language: [place] Review of Systems Constitutional: see HPI EENTM: see HPI Gastrointestinal: see HPI Genitourinary: see HPI Musculoskeletal: see HPI Skin: see HPI Psychiatric/Neurological: See HPI All Other Systems Reviewed Negative Unless Noted: Yes Sepsis Event Evaluation Height, Weight, BMI Height: '" Weight: lbs. oz. kg; 26.00 BMI Method: Exam Exam Patient acknowledged, consented, and participated in this virtual visit which was conducted using real time audio/video Vital Signs Date Time Temp Pulse Resp B/P (MAP) Pulse Ox O2 Delivery O2 Flow Rate FiO2 10/11/20 09:25 Nasal Cannula 2.00 10/11/20 09:25 36.6 100 16 113/84 (94) 88 Room Air Height & Weight Height: '" Weight: lbs. oz. kg; 26.00 BMI Method: General Appearance: Chronically ill, Thin Capillary Refill: Less Than 3 Seconds Peripheral Pulses: 1+ Dorsalis Pedis (R), 1+ Left Dors-Pedis (L) (See free text) Gastrointestinal: normal bowel sounds, non tender, soft; No distended, No guarding, No rebound Results Lab Laboratory Tests 10/11/20 09:46 Assessment/Plan Assessment/Plan See free text Critical Care: Critically Ill Patient Time spent on discussion(mins): 0 HERIBERTO PANG MD Oct 11, 2020 15:25
[2020-10-11] MEDS ORDERED: GBPN600T PO (15:39)
[2020-10-11] MEDS ORDERED: LAMO25TA75 PO (15:39)
[2020-10-11] MEDS ORDERED: BUDE10.2 IH (15:39)
[2020-10-11 16:16] VITALS: BP 95/67
--- NOTE | 2020-10-11 16:20 | History & Physical-Hospitalist ---
History of Present Illness HPI/Chief Complaint Pt is a 60yoCF with a PMH of COPD, COVID19 in August2020 with post COVID sequela, GI bleed, and Bipolar disorder who presented to the ER due to shortness of breath. She has struggled with dyspnea since her COVID illness last month and was being seen by Martínez Russo in the [facility] today. Per RAILROAD CAR LOADER Karan's report she was quite dyspneic on arrival to the room and was slightly hypoxic. She recovered to the 90s with deep breathes but was tachycardiac as well so she was referred to the ER for evaluation. CTA revealed bilateral PE and she was admitted for further management. She reports persistent SOB but cannot define any timeframe of it getting worse recently. She denies a history of blood clots. She does have a history of upper GI bleed. Source: patient Date Seen 10/11/20 Time Seen by a Provider: 16:11 Attending Physician Kyleigh Brody MD PCP No,Local Physician Referring Physician Date of Admission Oct 11, 2020 at 11:52 Home Medications & Allergies Home Medications Reviewed patient Home Medication Reconciliation performed by pharmacy medication reconciliations optical engineering technician and/or nursing. Patients Allergies have been reviewed. Allergies Allergies Coded Allergies No Known Drug Allergies ([id number]/31/19) Past Istrnqt-Tchlah-Fsmlgw Hx Patient Social History Tobacco Use?: Yes Tobacco type used: Cigarettes Smoking Status: Current Everyday Smoker Smokeless Tobacco Frequency: Never a User Use of E-Cig and/or Vaping dev: No Use of E-Cig and/or Vaping Bartolome: Never a User Substance use?: No Alcohol Use?: No Pt feels they are or have been: No Immunizations Up To Date Tetanus Booster (TDap): Unknown Hepatitis A: No Hepatitis B: No PED Vaccines UTD: Yes Seasonal Allergies Seasonal Allergies: No Current Status status: No status: No Advance Directives: No Advance Directive Location: Home Communicates: Verbally Primary Language: Vietnamese Preferred Spoken Language: Vietnamese Is interpretation needed?: No Implanted or Applied Medical D: None Past Medical History Heart Attack, Hypertension Ulcer Review of Systems Constitutional: No chills, No fever EENTM: no symptoms reported Respiratory: see HPI, cough, short of breath Cardiovascular: No chest pain; edema (right leg); No palpitations Gastrointestinal: No abdominal pain, No hematemesis, No melena, No nausea, No vomiting Genitourinary: no symptoms reported Musculoskeletal: no symptoms reported Skin: no symptoms reported Psychiatric/Neurological: No Symptoms Reported Physical Exam Physical Exam Vital Signs Vital Signs - First Documented 10/11/20 09:25 Temp 36.6 Pulse 100 Resp 16 B/P (MAP) 113/84 (94) Pulse Ox 88 O2 Delivery Room Air O2 Flow Rate 2.00 Capillary Refill : Less Than 3 Seconds Height, Weight, BMI Height: '" Weight: lbs. oz. kg; 27.28 BMI Method: General Appearance: No Apparent Distress, WD/WN HEENT: PERRL/EOMI, Moist Mucous Membranes Neck: Normal Inspection, Supple Respiratory: Lungs Clear, No Accessory Muscle Use, No Respiratory Distress Cardiovascular: Regular Rate, Rhythm, No Murmur Gastrointestinal: Normal Bowel Sounds, Non Tender, Soft Extremity: No Calf Tenderness, Swelling (right calf) Neurologic/Psychiatric: Alert, Oriented x3, Normal Mood/Affect Skin: Normal Color, Warm/Dry, Ecchymosis (right thigh) Results Results/Procedures Labs Laboratory Tests 10/11/20 09:46 Patient resulted labs reviewed. Imaging: Reviewed Imaging Report Imaging [facility], [place] NAME: MARICHUY BUSTAMANTE [facility] REC#: [id number] PT STATUS: REG ER : 1960 PHYSICIAN: ALBERT EMMANUEL MD ADMIT DATE: 10/11/20/ER Signed Date of Exam:10/11/20 CT ANGIO CHEST W PROCEDURE: CT angiography Chest TECHNIQUE: After intravenous administration of contrast, thin section axial CT angiography of the chest was performed. 3D MIP reconstructions were made. All CT scans use one or more of the following dose optimizing techniques: automated exposure control, MA and/or KvP adjustment based on a patient size and exam type, or iterative reconstruction. INDICATION: Shortness of air. COMPARISON: None available. FINDINGS: Vasculature: There is a moderate burden of bilateral acute pulmonary emboli. The largest component is located in the distal right main pulmonary artery with extension right upper interlobar segment. Bilateral lower lobe segmental and subsegmental pulmonary emboli are present. No dilation of the pulmonary trunk. No features right ventricular strain. The ascending aorta is aneurysmal measuring 4.5 cm. No aortic dissection. Heart and mediastinum: 1.7 x 1.1 cm hypodense right thyroid nodule. Numerous small subcentimeter mediastinal and hilar lymph nodes are likely reactive in nature. Heart is enlarged with left ventricular hypertrophy. No pericardial effusion. Pleura: No pleural effusion or pneumothorax. Lungs and airway: No endoluminal lesion in the trachea or central bronchi. There is a mixture of bilateral groundglass opacities and consolidations throughout all 5 lobes. Upper abdomen: Mineralizations within the renal medulla likely due to areas of nephrocalcinosis. Infrarenal abdominal aorta measures up to 3.7 cm. Musculoskeletal: No concerning osseous lesion. IMPRESSION: 1. Moderate to large burden of acute bilateral pulmonary emboli with the most central emboli located in the distal right main pulmonary artery. 2. Bilateral pulmonary consolidations and ground glass opacities are likely due to sequelae of recent Covid 19 pneumonia. There are some subpleural bands present potentially due to early pulmonary fibrosis. Advise follow-up CT chest without contrast in 6-8 weeks to reassess the degree of fibrosis versus pneumonitis. 3. Ascending aortic aneurysm measures up to 4.5 cm. Infrarenal abdominal aneurysm measures up to 3.7 cm. No acute aortic dissection. Findings of acute pulmonary emboli were discussed with Albert Emmanuel MD at 12:00 PM on 10/11/2020. Dictated by: Dictated on workstation # [id number] Dict: 10/11/20 1150 Trans: 10/11/20 1330 [id number] Interpreted by: NANO BARONE MD Electronically signed by: NANO BARONE MD 10/11/20 1330 Assessment/Plan Admission Diagnosis Bilateral PE Admission Status: Inpatient Order (span 2 midnights) Reason for Inpatient Admission: see below Assessment and Plan Bilateral PE NSTEMI- likely Type II MD Post COVID syndrome Now on room air Troponin trending down Echo ordered Will continue on Lovenox TeleICU consulted Cardiology consulted Dopplers ordered Titrate oxygen to keep sats >90 Resume home symbicort Updated Martínez Russo from [facility] of findings and informed of need for anticoagulation- will need Xarelto up on discharge and she expressed concern about financial burden of medications to him H/o UGI bleed Hgb 10, trend No report of any bleeding recently Add Protonix Bipolar disorder Continue home meds dvt ppx: Already on therapeutic anticoagulation KYLEIGH BRODY MD Oct 11, 2020 16:20
[2020-10-11] MEDS ORDERED: RT-ALBUTEROL/IPRATROPIUM 3 ML (DUONEB) VIAL INH PRN (16:30)
--- NOTE | 2020-10-11 17:20 | Diagnostic Imaging Report ---
EXAMINATION: US venous lower ext radha. TECHNIQUE: Multiple real-time grayscale images were obtained over the lower extremities in various projections, bilaterally. Additional duplex Doppler and color Doppler images were also obtained. HISTORY: Swelling. COMPARISON: No comparison available. FINDINGS: Left lower extremity veins are patent. There is no evidence for deep venous thrombosis on the left. There is normal respiratory variation and augmentation. There is partial thrombosis of the right superficial femoral vein extending to the popliteal vein and calf veins. The distal calf veins are patent. IMPRESSION: Partial deep venous thrombosis of the right superficial femoral vein to the proximal calf veins. Dictated by: Dictated on workstation # [id number]
[2020-10-11] MEDS: ENOXAPARIN 80 MG/0.8 ML (LOVENOX) SYR SC SCH (17:24)
--- NOTE | 2020-10-11 17:53 | Consultation-Cardiology ---
HPI-Cardiology Cardiology Consultation: Date of Consultation 10/11/2020 Date of Admission 10/11/2020 Attending Physician Mary Brody MD Admitting Physician No,Local Physician Consulting Physician SHILOH AVELAR JR, MD HPI: Time Seen by a Provider: 17:48 Chief Complaint: Reason for consultation: Elevated troponin level. Had the pleasure of seeing Porsche in the intensive care unit this afternoon. She has long history of a heart murmur of unknown etiology, hypertension not presently on medication, and lifelong smoking until her recent Covid infection. A few weeks ago she started developing a cough and worsening shortness of breath beyond the symptoms of what she would normally have due to her lifelong non- smoking. She ultimately sought medical attention and was diagnosed with Covid. She was put on the appropriate outpatient treatment. However, her shortness of breath continued to progress. Today she went to [facility] because she felt like she could hardly breathe. She was found to be hypoxic and was sent to the emergency room for further evaluation. She underwent a CT angiogram of the chest that showed extensive bilateral pulmonary emboli. As such, she was admitted to the intensive care unit. During her evaluation in the emergency room, she was also found to have an elevated troponin level and a cardiology consultation was requested. She quit smoking just around the time that she developed the Covid infection. She denies any significant chest discomfort. She denies paroxysmal nocturnal dyspnea, orthopnea, palpitations, lightheadedness, syncope, or lower extremity edema. She does not recall ever having an echocardiogram but she has known about her heart murmur for a number of years. Certain portions of this document may have been dictated utilizing voice recognition technology. Inherent to this technology, typographical and grammatical errors may exist. As much as I am diligent to identify and correct these mistakes, some errors may remain in the document. Review of Systems-Cardiology Review of Systems : No Other comments Review of 10 organ systems is as per the history of present illness, otherwise negative. All Other Systems Reviewed Negative Unless Noted: Yes HFF-[place]-Caaggj Hx Patient Social History Smoking Status: Current Everyday Smoker 2nd Hand Smoke Exposure: Yes Have you traveled recently?: No Alcohol Use?: No Pt feels they are or have been: No Tobacco type used: Cigarettes Past Medical History PMH As described under Assessment. Family Medical History Family Medical History: The patient does not know of any family history of premature coronary artery disease. Allergies and Home Medications Allergies Coded Allergies: No Known Drug Allergies (Unverified , 03/01/19) Home Medications Budesonide/Formoterol Fumarate 10.2 Gm Hfa.aer.ad, 2 PUFF IH BID, (Reported) Last Action: Converted Gabapentin 600 Mg Tablet, 600 MG PO BID, (Reported) Last Action: Continued Lamotrigine 25 Mg Tablet, 25 MG PO BID, (Reported) Last Action: Continued Patient Home Medication List Home Medication List Reviewed: Yes Exam Vital Signs Vital Signs Date Time Temp Pulse Resp B/P (MAP) Pulse Ox O2 Delivery O2 Flow Rate FiO2 10/11/20 17:00 88 Nasal Cannula 2.00 10/11/20 16:16 36.6 95 10/11/20 16:00 20 Physical Exam General: Alert. No acute distress. Well nourished and appears older than stated age. Eye: Extraocular movements are intact. Conjunctivae are clear. There are no xanthelasma. HENT: Normocephalic. Atraumatic. Carotid pulsations 2/2 without bruits. Neck: Jugular venous pressure does not appear elevated. No thyromegaly appreciated. Respiratory: Lungs are clear to auscultation but with diffusely decreased breath sounds in all lung field. Respirations are non-labored. Breath sounds are equal. Symmetrical chest wall expansion. Cardiovascular: Normal rate. Regular rhythm. 3/6 high-pitched systolic ejection murmur. No gallop. Point of maximal impulse is not appear displaced. Good pulses equal in all extremities. No edema. Gastrointestinal: Soft. Normal bowel sounds. Skin: Skin turgor is normal. There is no pallor. Musculoskeletal: No kyphosis or scoliosis appreciated. Neurologic: Alert and oriented to person, place, time. Cranial nerves 3-12 appear grossly intact. The patient has good motor tone strength in the upper and lower extremities bilaterally. Psychiatric: Cooperative. Appropriate mood & affect. Labs Laboratory Tests Test 10/11/20 09:46 10/11/20 12:05 Range/Units White Blood Count 11.7 H 4.3-11.0 10^3/uL Red Blood Count 3.54 L 3.80-5.11 10^6/uL Hemoglobin 10.2 L 11.5-16.0 g/dL Hematocrit 32 L 35-52 % Mean Corpuscular Volume 91 80-99 fL Mean Corpuscular Hemoglobin 29 25-34 pg Mean Corpuscular Hemoglobin Concent 32 32-36 g/dL Red Cell Distribution Width 14.3 10.0-14.5 % Platelet Count 405 H 130-400 10^3/uL Mean Platelet Volume 10.3 9.0-12.2 fL Immature Granulocyte % (Auto) 1 % Neutrophils (%) (Auto) 71 42-75 % Lymphocytes (%) (Auto) 13 12-44 % Monocytes (%) (Auto) 9 0-12 % Eosinophils (%) (Auto) 5 0-10 % Basophils (%) (Auto) 1 0-10 % Neutrophils # (Auto) 8.3 H 1.8-7.8 10^3/uL Lymphocytes # (Auto) 1.6 1.0-4.0 10^3/uL Monocytes # (Auto) 1.0 0.0-1.0 10^3/uL Eosinophils # (Auto) 0.6 H 0.0-0.3 10^3/uL Basophils # (Auto) 0.1 0.0-0.1 10^3/uL Immature Granulocyte # (Auto) 0.1 0.0-0.1 10^3/uL Prothrombin Time 13.5 12.2-14.7 SEC INR Comment 1.0 0.8-1.4 Activated Partial Thromboplast Time 39 H 24-35 SEC Sodium Level 140 135-145 MMOL/L Potassium Level 4.3 3.6-5.0 MMOL/L Chloride Level 102 98-107 MMOL/L Carbon Dioxide Level 26 21-32 MMOL/L Anion Gap 12 5-14 MMOL/L Blood Urea Nitrogen 13 7-18 MG/DL Creatinine 0.89 0.60-1.30 MG/DL Estimat Glomerular Filtration Rate 65 BUN/Creatinine Ratio 15 Glucose Level 103 70-105 MG/DL Calcium Level 9.2 8.5-10.1 MG/DL Corrected Calcium 10.0 8.5-10.1 MG/DL Total Bilirubin 0.4 0.1-1.0 MG/DL Aspartate Amino Transf (AST/SGOT) 14 5-34 U/L Alanine Aminotransferase (ALT/SGPT) 9 0-55 U/L Alkaline Phosphatase 86 40-136 U/L Troponin I 0.294 *H 0.277 H <0.028 NG/ML B-Type Natriuretic Peptide 2747.2 H <100.0 PG/ML Total Protein 7.7 6.4-8.2 GM/DL Albumin 3.0 L 3.2-4.5 GM/DL SARS-CoV-2 RNA (RT-PCR) Not Detected Not Detecte ECG Impression ECG Comment Pending Diagnosis/Problems Diagnosis/Problems (1) Troponin level elevated Assessment & Plan: She has an elevated troponin level but this is in the setting of extensive bilateral pulmonary emboli. This is a probable type II non- ST elevation myocardial infarction related to supply/demand mismatch due to the extensive pulmonary emboli. Given her risk factors, at some point we may want to consider an ischemic evaluation. However, I would hold off on doing this until she completes her therapy for the pulmonary emboli. (2) Aortic stenosis Assessment & Plan: She has severe aortic stenosis as noted on her echocardiogram done earlier today. Fortunately, she has a normal ejection fraction. Once she fully recovers from the pulmonary emboli and Covid infection, she will need additional evaluation to determine whether or not she will need aortic valve replacement in the near future or if we can continue to monitor this. (3) Thoracic aortic aneurysm without rupture Assessment & Plan: Her CT of the chest showed dilatation of the thoracic aorta. There was no evidence of dissection. This is below the cutoff for requiring intervention but will need to be followed longitudinally. (4) Pulmonary embolism Status: Acute Assessment & Plan: This was most likely a complication of the Covid infection. The hospitalist is managing the anticoagulation. Problem Qualifiers (1) Pulmonary embolism: Pulmonary embolism type: unspecified Chronicity: acute Acute cor pulmonale presence: unspecified Qualified Codes: I26.99 - Other pulmonary embolism wit hout acute cor pulmonale SHILOH AVELAR JR, MD Oct 11, 2020 17:53
[2020-10-11] MEDS: RT-ALBUTEROL/IPRATROPIUM 3 ML (DUONEB) VIAL INH SCH ×2 (19:31→22:47)
[2020-10-11] MEDS: RT--FLUTICASONE/SALMETEROL 232-14 (AIRDUO RespiCLICK) IH SCH (19:37)
[2020-10-11] MEDS: lamoTRIgine 25 MG (LaMICtal) TAB PO SCH (20:36)
[2020-10-11] MEDS: GABAPENTIN 600 MG (NEURONTIN) TAB PO SCH (20:36)
[2020-10-11] MEDS ORDERED: NICOTINE 21 MG (NICODERM) PATCH ONE (22:13)
[2020-10-11] MEDS: NICOTINE 21 MG (NICODERM) PATCH TD SCH (22:16)
[2020-10-11] MEDS: CATHETER FLUSH 10 ML SYR IV SCH (23:55)
[2020-10-12] MEDS: RT-ALBUTEROL/IPRATROPIUM 3 ML (DUONEB) VIAL INH SCH ×6 (02:51→22:13)
[2020-10-12 03:52] LABS: POTASSIUM 4.5 MMOL/L (3.6-5.0)
[2020-10-12 03:54] LABS: CALCIUM 8.6 MG/DL (8.5-10.1)
[2020-10-12 03:57] LABS: BASOPHILS # (AUTO) 0.1 10^3/uL (0.0-0.1); BASOPHILS % (AUTO) 1 % (0-10); EOSINOPHILS # (AUTO) 0.8 10^3/uL (0.0-0.3); EOSINOPHILS % (AUTO) 9 % (0-10); HEMATOCRIT 32 % (35-52); HEMOGLOBIN 9.6 g/dL (11.5-16.0); LYMPHOCYTES # (AUTO) 1.8 10^3/uL (1.0-4.0); LYMPHOCYTES % (AUTO) 20 % (12-44); MEAN CORPUSCULAR HEMOGLOBIN 28 pg (25-34); MEAN CORPUSCULAR HGB CONC 30 g/dL (32-36); MEAN CORPUSCULAR VOLUME 93 fL (80-99); MEAN PLATELET VOLUME 10.3 fL (9.0-12.2); MONOCYTES # (AUTO) 0.8 10^3/uL (0.0-1.0); MONOCYTES % (AUTO) 9 % (0-12); NEUTROPHILS # (AUTO) 5.4 10^3/uL (1.8-7.8); NEUTROPHILS % (AUTO) 60 % (42-75); PLATELET COUNT 364 10^3/uL (130-400); WHITE BLOOD COUNT 8.9 10^3/uL (4.3-11.0)
[2020-10-12 03:58] LABS: CREATININE SERUM 0.87 MG/DL (0.60-1.30)
[2020-10-12] MEDS: ENOXAPARIN 80 MG/0.8 ML (LOVENOX) SYR SC SCH (05:50)
[2020-10-12] MEDS: RT--FLUTICASONE/SALMETEROL 232-14 (AIRDUO RespiCLICK) IH SCH ×2 (07:36→22:13)
[2020-10-12] MEDS: GABAPENTIN 600 MG (NEURONTIN) TAB PO SCH ×2 (08:50→20:18)
[2020-10-12] MEDS: lamoTRIgine 25 MG (LaMICtal) TAB PO SCH ×2 (08:50→20:18)
[2020-10-12] MEDS: CATHETER FLUSH 10 ML SYR IV SCH ×3 (08:50→20:19)
--- NOTE | 2020-10-12 08:51 | Progress Note - Hospitalist ---
Subjective HPI/CC On Admission Date Seen by Provider: Oct 12, 2020 Time Seen by Provider: 08:46 Pt is a 60yoCF with a PMH of COPD, COVID19 in August2020 with post COVID sequela, GI bleed, and Bipolar disorder who presented to the ER due to shortness of breath. She has struggled with dyspnea since her COVID illness last month and was being seen by Martínez Russo in the [facility] today. Per HORTICULTURAL SERVICES SUPERVISOR Karan's report she was quite dyspneic on arrival to the room and was slightly hypoxic. She recovered to the 90s with deep breathes but was tachycardiac as well so she was referred to the ER for evaluation. CTA revealed bilateral PE and she was admitted for further management. She reports persistent SOB but cannot define any timeframe of it getting worse recently. She denies a history of blood clots. She does have a history of upper GI bleed. Subjective/Events-last exam Pt reports doing well. No complaints. breathing is easier. Objective Exam Vital Signs Vital Signs Date Time Temp Pulse Resp B/P (MAP) Pulse Ox O2 Delivery O2 Flow Rate FiO2 10/12/20 08:00 110 29 92 Nasal Cannula 1.00 10/12/20 08:00 36.9 10/12/20 06:00 111/79 (90) Capillary Refill : Less Than 3 Seconds General Appearance: No Apparent Distress, WD/WN Respiratory: Lungs Clear, No Accessory Muscle Use Cardiovascular: Systolic Murmur, Tachycardia Gastrointestinal: Normal Bowel Sounds, Non Tender, Soft Neurologic/Psychiatric: Alert, Oriented x3 Results/Procedures Lab Laboratory Tests 10/11/20 09:46 10/12/20 03:05 10/12/20 03:48 Patient resulted labs reviewed. Imaging: Reviewed Imaging Report Assessment/Plan Assessment and Plan Assess & Plan/Chief Complaint Bilateral PE NSTEMI- likely Type II MO Post COVID syndrome On just 1lpm- transfer to 4th Troponin trending down Echo with preserved EF and severe aortic stenosis Switch Lovenox to Xarelto today TeleICU consulted Cardiology consulted Dopplers ordered Titrate oxygen to keep sats >90 Continue home symbicort H/o UGI bleed Hgb 10 yesterday and down to 9.6, trend No report of any bleeding recently Continue Protonix Bipolar disorder Continue home meds dvt ppx: Already on therapeutic anticoagulation Critical Care Critically Ill Patient KYLEIGH TORRES MD Oct 12, 2020 08:51
[2020-10-12] MEDS: PATCH REMOVAL TP SCH (08:52)
--- NOTE | 2020-10-12 15:38 | Cardiology Progress Note ---
Progress Note-Cardiology Events since last exam Date Seen by Provider: Oct 12, 2020 Time Seen by Provider: 15:34 Events since last exam We are seeing her due to abnormal troponin level and newly discovered aortic stenosis. She remains in the intensive care unit but has transfer orders to the floor. Her breathing may be slightly better today. She denies chest discomfort, palpitations, syncope, or ankle edema. Certain portions of this document may have been dictated utilizing voice recognition technology. Inherent to this technology, typographical and grammatical errors may exist. As much as I am diligent to identify and correct these mistakes, some errors may remain in the document. Vitals Last set of Vitals Signs Vital Signs 10/12/20 10/12/20 10/12/20 09:00 12:00 13:00 Temp 36.5 Pulse 108 Resp 26 B/P (MAP) () Pulse Ox 97 O2 Delivery Nasal Cannula O2 Flow Rate 1.00 Labs Labs Laboratory Tests 10/12/20 03:05 10/12/20 03:48 Exam Vital Signs Vital Signs Date Time Temp Pulse Resp B/P (MAP) Pulse Ox O2 Delivery O2 Flow Rate FiO2 10/12/20 13:00 108 10/12/20 12:00 97 Nasal Cannula 1.00 10/12/20 12:00 36.5 10/12/20 09:00 26 () Physical Exam General: Alert. No acute distress. Eye: No xanthelasma. HENT: Normocephalic. Neck: Jugular venous pressure does not appear elevated. Respiratory: Lungs have diffusely decreased breath sounds. Respirations are non- labored. Breath sounds are equal. Symmetrical chest wall expansion. Cardiovascular: Normal rate. Regular rhythm. 3/6 high-pitched systolic ejection murmur. No gallop. No edema. Gastrointestinal: Soft. Normal bowel sounds. Skin: Warm. Dry. Neurologic: Alert and oriented to person, place, time. Cranial nerves 3-11 grossly intact. Psychiatric: Cooperative. Appropriate mood & affect. Labs Laboratory Tests Test 10/12/20 03:05 10/12/20 03:48 Range/Units Sodium Level 140 135-145 MMOL/L Potassium Level 4.5 3.6-5.0 MMOL/L Chloride Level 103 98-107 MMOL/L Carbon Dioxide Level 24 21-32 MMOL/L Anion Gap 13 5-14 MMOL/L Blood Urea Nitrogen 14 7-18 MG/DL Creatinine 0.87 0.60-1.30 MG/DL Estimat Glomerular Filtration Rate 67 BUN/Creatinine Ratio 16 Glucose Level 110 H 70-105 MG/DL Calcium Level 8.6 8.5-10.1 MG/DL Triglycerides Level 117 <150 MG/DL Cholesterol Level 170 < 200 MG/DL LDL Cholesterol Direct 119 1-129 MG/DL VLDL Cholesterol 23 5-40 MG/DL HDL Cholesterol 43 40-60 MG/DL White Blood Count 8.9 4.3-11.0 10^3/uL Red Blood Count 3.41 L 3.80-5.11 10^6/uL Hemoglobin 9.6 L 11.5-16.0 g/dL Hematocrit 32 L 35-52 % Mean Corpuscular Volume 93 80-99 fL Mean Corpuscular Hemoglobin 28 25-34 pg Mean Corpuscular Hemoglobin Concent 30 L 32-36 g/dL Red Cell Distribution Width 14.6 H 10.0-14.5 % Platelet Count 364 130-400 10^3/uL Mean Platelet Volume 10.3 9.0-12.2 fL Immature Granulocyte % (Auto) 1 % Neutrophils (%) (Auto) 60 42-75 % Lymphocytes (%) (Auto) 20 12-44 % Monocytes (%) (Auto) 9 0-12 % Eosinophils (%) (Auto) 9 0-10 % Basophils (%) (Auto) 1 0-10 % Neutrophils # (Auto) 5.4 1.8-7.8 10^3/uL Lymphocytes # (Auto) 1.8 1.0-4.0 10^3/uL Monocytes # (Auto) 0.8 0.0-1.0 10^3/uL Eosinophils # (Auto) 0.8 H 0.0-0.3 10^3/uL Basophils # (Auto) 0.1 0.0-0.1 10^3/uL Immature Granulocyte # (Auto) 0.1 0.0-0.1 10^3/uL Diagnosis/Problems Diagnosis/Problems (1) Troponin level elevated Assessment & Plan: She has an elevated troponin level but this is in the setting of extensive bilateral pulmonary emboli. This is a probable type II non- ST elevation myocardial infarction related to supply/demand mismatch due to the extensive pulmonary emboli. Given her risk factors, at some point we may want to consider an ischemic evaluation. However, I would hold off on doing this until she is an outpatient and completes her therapy for the pulmonary emboli. At this point in time, there do not appear to be any acute, active cardiac issues. As such, cardiology will sign off. My office will be in touch with her after discharge to schedule a follow-up visit for long-term management of the aortic stenosis. Please call if you have other questions or concerns. (2) Aortic stenosis Assessment & Plan: She has severe aortic stenosis. Fortunately, she has a normal ejection fraction. This is a new diagnosis for the patient. Once she fully recovers from the pulmonary emboli and Covid infection, she will need additional evaluation to determine whether or not she will need aortic valve replacement in the near future or if we can continue to monitor this. (3) Thoracic aortic aneurysm without rupture Assessment & Plan: Her CT of the chest showed dilatation of the thoracic aorta. There was no evidence of dissection. This is below the cutoff for requiring intervention but will need to be followed longitudinally. (4) Pulmonary embolism Status: Acute Assessment & Plan: This was most likely a complication of the Covid infection. The hospitalist is managing the anticoagulation. Problem Qualifiers (1) Pulmonary embolism: Pulmonary embolism type: unspecified Chronicity: acute Acute cor pulmonale presence: unspecified Qualified Codes: I26.99 - Other pulmonary embolism without acute cor pulmonale SHILOH AVELAR JR, MD Oct 12, 2020 15:38
[2020-10-12] MEDS: RIVAROXABAN 15 MG TABLET (XARELTO) PO SCH (20:18)
[2020-10-13] MEDS: RT-ALBUTEROL/IPRATROPIUM 3 ML (DUONEB) VIAL INH SCH ×3 (02:01→10:52)
[2020-10-13] MEDS: CATHETER FLUSH 10 ML SYR IV SCH (05:29)
[2020-10-13] MEDS: NICOTINE 21 MG (NICODERM) PATCH TD SCH (07:52)
[2020-10-13] MEDS: RIVAROXABAN 15 MG TABLET (XARELTO) PO SCH (07:52)
[2020-10-13] MEDS: lamoTRIgine 25 MG (LaMICtal) TAB PO SCH (07:52)
[2020-10-13] MEDS: GABAPENTIN 600 MG (NEURONTIN) TAB PO SCH (07:52)
[2020-10-13] MEDS: PATCH REMOVAL TP SCH (07:53)
[2020-10-13] MEDS: RT--FLUTICASONE/SALMETEROL 232-14 (AIRDUO RespiCLICK) IH SCH (08:04)
--- NOTE | 2020-10-13 09:28 | Tele-ICU Progress Note ---
Progress Note video rounds completed 60 y/o female had Covid in August Now admitted with bilateral PEs and elevated troponins. Being followed by cardiolgy. trop elevation felt to be demand ischemia Also newly diagnosed aortic stenosis PE: comfortable inbed HR: 110 sinus tachy BP: 97/69 O sat:" 94% Meds: xarelto 15mg BID PLAN: continue anticoagulation for PE Cardiology following Focused Exam Height, Weight, BMI Height: '" Weight: lbs. oz. kg; 27.28 BMI Method: VANESSA KILPATRICK MD Oct 13, 2020 09:27
[2020-10-13] MEDS ORDERED: RIVA1TAB PO (10:01)
--- NOTE | 2020-10-13 10:02 | Discharge Inst-Simple/Standard ---
Discharge Inst-Standard Patient Instructions/Follow Up Plan of Care/Instructions/FU: Please continue to take your medications as written. Please follow up with Martínez Russo next week to follow up this hospital stay. Activity as Tolerated: Yes Discharge Diet: No Restrictions Return to The Hospital For: chest pain, shortness of breath, fever, weakness, confusion, if you feel you are getting worse. KYLEIGH TORRES MD Oct 13, 2020 10:02
--- NOTE | 2020-10-13 10:04 | Discharge Summary ---
Diagnosis/Chief Complaint Date of Admission Oct 11, 2020 at 11:52 Date of Discharge Discharge Date: Oct 13, 2020 Admission Diagnosis Bilateral PE Primary Care No,Local Physician Discharge Diagnosis (1) Troponin level elevated Assessment & Plan: She has an elevated troponin level but this is in the setting of extensive bilateral pulmonary emboli. This is a probable type II non- ST elevation myocardial infarction related to supply/demand mismatch due to the extensive pulmonary emboli. Given her risk factors, at some point we may want to consider an ischemic evaluation. However, I would hold off on doing this until she is an outpatient and completes her therapy for the pulmonary emboli. At this point in time, there do not appear to be any acute, active cardiac issues. As such, cardiology will sign off. My office will be in touch with her after discharge to schedule a follow-up visit for long-term management of the aortic stenosis. Please call if you have other questions or concerns. (2) Aortic stenosis Assessment & Plan: She has severe aortic stenosis. Fortunately, she has a normal ejection fraction. This is a new diagnosis for the patient. Once she fully recovers from the pulmonary emboli and Covid infection, she will need additional evaluation to determine whether or not she will need aortic valve replacement in the near future or if we can continue to monitor this. (3) Thoracic aortic aneurysm without rupture Assessment & Plan: Her CT of the chest showed dilatation of the thoracic aorta. There was no evidence of dissection. This is below the cutoff for requiring intervention but will need to be followed longitudinally. (4) Pulmonary embolism Status: Acute Assessment & Plan: This was most likely a complication of the Covid infection. The hospitalist is managing the anticoagulation. Discharge Summary Discharge Physical Exam Allergies: Coded Allergies: No Known Drug Allergies (Unverified , 03/01/19) Vitals & I&Os Vital Signs Date Time Temp Pulse Resp B/P (MAP) Pulse Ox O2 Delivery O2 Flow Rate FiO2 10/13/20 11:56 36.6 10/13/20 11:18 108 24 113/54 95 Nasal Cannula 2.00 General Appearance: No Apparent Distress, Chronically ill Respiratory: Lungs Clear, No Respiratory Distress Cardiovascular: Regular Rate, Rhythm, No Murmur Neurologic/Psychiatric: Alert, Oriented x3 Hospital Course Patient was admitted to the hospital due to bilateral pulmonary emboli and hy poxia. She had Covid in August and was following up for a post Covid clinic at [facility] with Martínez Campbell and was found to be quite hypoxic and there clinic with tachycardia and was referred to the emergency room where CT revealed bilateral pulmonary emboli. She was admitted to the ICU due to concerns for right heart strain from elevated troponin and treated with Lovenox. Cardiology was consulted. She did well was able to be transitioned to Xarelto. She was able to be discharged home with oxygen and was advised to follow-up with [facility] in [place] NP. I did discuss his case with him. Labs (last 24 hrs) Patient resulted labs reviewed. Imaging: Reviewed Imaging Report Discussion & Recommendations Discharge Planning: >30 minutes discharge planning Discharge Home Medications: Active Scripts Active Xarelto Starter Pack (Rivaroxaban) 1 Each Tab.ds.pk 1 Each PO UD 15mg by mouth twice daily x 21 days then 20mg by mouth daily Reported Symbicort 160-4.5 Mcg Inhaler (Budesonide/Formoterol Fumarate) 10.2 Gm Hfa.aer.ad 2 Puff IH BID Gabapentin 600 Mg Tablet 600 Mg PO BID Lamictal (Lamotrigine) 25 Mg Tablet 25 Mg PO BID Instructions to patient/family Please see electronic discharge instructions given to patient. Problem Qualifiers (1) Pulmonary embolism: Pulmonary embolism type: unspecified Chronicity: acute Acute cor pulmonale presence: unspecified Qualified Codes: I26.99 - Other pulmonary embolism without acute cor pulmonale KYLEIGH TORRES MD Oct 13, 2020 10:04
[2020-10-13 11:18] VITALS: BP 113/54
== END 2020-10-13 12:00 | disposition home or self-care (01) | DRG 175 ==
LOC: EDUNIT# 09:21 → ER 09:24 → ICU 11:52
PROVIDERS: ADMIT Family Medicine; ATTEND Family Medicine
DX: I26.99 Other pulmonary embolism without acute cor pulmonale (principal); J96.01 Acute respiratory failure with hypoxia; I21.A1 Myocardial infarction type 2; B94.8 Sequelae of other specified infectious and parasitic diseases; I25.10 Atherosclerotic heart disease of native coronary artery without angina pectoris; I10 Essential (primary) hypertension; I25.2 Old myocardial infarction; F17.210 Nicotine dependence, cigarettes, uncomplicated; F31.9 Bipolar disorder, unspecified; I35.0 Nonrheumatic aortic (valve) stenosis; I71.2 Thoracic aortic aneurysm, without rupture; Z20.822 Contact with and (suspected) exposure to COVID-19
CPT/HCPCS: 36415; 71275; 80048; 80053; 80061; 83880; 84484; 85025; 85610; 85730; 87636; 93005; 93041; 93306; 93970; 94640; 94760; 94761

== ENCOUNTER 2020-10-18 04:36 | Inpatient (IN) | payer OTHER ==
[~2020-10-18] VITALS: Ht 162.6 cm; Wt 68.0 kg
[~2020-10-18 04:36] MED LIST: BUDE10.2 IH; GBPN600T PO; LAMO25TA75 PO; RIVA1TAB PO
[2020-10-18] MEDS ORDERED: LACTATED RINGERS 1,000 ML IV STA (04:48)
[2020-10-18 04:56] LABS: BASOPHILS # (AUTO) 0.1 10^3/uL (0.0-0.1); BASOPHILS % (AUTO) 1 % (0-10); EOSINOPHILS # (AUTO) 1.5 10^3/uL (0.0-0.3); EOSINOPHILS % (AUTO) 15 % (0-10); HEMATOCRIT 32 % (35-52); HEMOGLOBIN 9.8 g/dL (11.5-16.0); LYMPHOCYTES # (AUTO) 2.1 10^3/uL (1.0-4.0); LYMPHOCYTES % (AUTO) 20 % (12-44); MEAN CORPUSCULAR HEMOGLOBIN 28 pg (25-34); MEAN CORPUSCULAR HGB CONC 31 g/dL (32-36); MEAN CORPUSCULAR VOLUME 92 fL (80-99); MEAN PLATELET VOLUME 10.4 fL (9.0-12.2); MONOCYTES # (AUTO) 0.8 10^3/uL (0.0-1.0); MONOCYTES % (AUTO) 8 % (0-12); NEUTROPHILS # (AUTO) 5.5 10^3/uL (1.8-7.8); NEUTROPHILS % (AUTO) 55 % (42-75); PLATELET COUNT 531 10^3/uL (130-400); WHITE BLOOD COUNT 10.1 10^3/uL (4.3-11.0)
[2020-10-18 05:13] LABS: POTASSIUM 4.2 MMOL/L (3.6-5.0)
[2020-10-18 05:14] LABS: PROTHROMBIN TIME PATIENT 23.2 SEC (12.2-14.7)
[2020-10-18 05:15] LABS: CALCIUM 9.5 MG/DL (8.5-10.1)
[2020-10-18 05:16] LABS: TOTAL PROTEIN 7.5 GM/DL (6.4-8.2)
[2020-10-18 05:18] LABS: BILIRUBIN,TOTAL 0.3 MG/DL (0.1-1.0)
[2020-10-18 05:19] LABS: CREATININE SERUM 0.81 MG/DL (0.60-1.30)
[2020-10-18 06:13] LABS: BAND NEUTROPHILS 1 %; EOSINOPHILS % (MANUAL) 15 %; HYPOCHROMASIA SLIGHT; LYMPHOCYTES % (MANUAL) 22 %; MICROCYTOSIS SLIGHT; MONOCYTES % (MANUAL) 7 %; NEUTROPHILS % (MANUAL) 55 %
[2020-10-18 06:34] LABS: BILIRUBIN,URINE NEGATIVE (NEGATIVE); CLARITY,URINE SL CLOUDY; COLOR,URINE YELLOW; GLUCOSE, URINE (UA) NEGATIVE (NEGATIVE); KETONES,URINE NEGATIVE (NEGATIVE); LEUKOCYTE ESTERASE ,URINE 2+ (NEGATIVE); NITRITE,URINE POSITIVE (NEGATIVE); PROTEIN,URINE NEGATIVE (NEGATIVE)
[2020-10-18 06:43] LABS: BACTERIA,URINE LARGE /HPF; RBC,URINE RARE /HPF
--- NOTE | 2020-10-18 07:01 | ED General ---
General Chief Complaint: Respiratory Problems Stated Complaint: SOB Nursing Triage Note: PT PRESENTS TO ROOM #5 [facility]IA [facility] GURNEY FROM HOME W/CO SOA AND HYPOTENSION. EMS ADVISE D/T INITIAL HYPOTENSIVE BP, 20G SL ACCESSED TO L WRIST AND NS FLUID BOLUS INITIATED. UPON ARRIVAL PT REPORTS SHE WAS DC'S FROM INPATIENT HOSPITAL ON 10/15/20 D/T DVT AND PE. PT REPORTS PERSISTANT SOA SINCE DC. PT REPORTS TO UTILIZE 2L O2 VIA NC AT ALL TIMES. Source of Information: Patient, EMS Exam Limitations: No Limitations History of Present Illness Date Seen by Provider: Oct 18, 2020 Time Seen by Provider: 04:35 Initial Comments Here with report of being very weak at home. Lives with her son. EMS reported shortness of air despite her normal 2 L as well as hypotension in the 70s and 80s systolic. Patient states that she is having a terrible time with cough. She did have Covid illness last month followed by pulmonary embolism. She is currently on Xarelto. She was discharged on 10/13/2020 due to pulmonary emboli. She is persistently short of air since and worsened today. Patient complains of significant weakness. Denies fever or chills. Timing/Duration: 1-2 Days, Getting Worse Severity: Moderate Associated Systoms: Cough; No Fever/Chills, No Headaches; Malaise; No Nausea/Vomiting; Shortness of Air, Weakness Allergies and Home Medications Allergies Coded Allergies: No Known Drug Allergies (Unverified , 03/01/19) Home Medications Budesonide/Formoterol Fumarate 10.2 Gm Hfa.aer.ad, 2 PUFF IH BID, (Reported) Gabapentin 600 Mg Tablet, 600 MG PO BID, (Reported) Lamotrigine 25 Mg Tablet, 25 MG PO BID, (Reported) Rivaroxaban 1 Each Tab.ds.pk, 1 EACH PO UD 15mg by mouth twice daily x 21 days then 20mg by mouth daily Prescribed by: KYLEIGH TORRES on 10/13/20 1001 Patient Home Medication List Home Medication List Reviewed: Yes Review of Systems Review of Systems Constitutional: see HPI EENTM: No nose congestion, No throat pain Respiratory: cough, dyspnea on exertion, short of breath, wheezing Cardiovascular: No chest pain, No edema Gastrointestinal: No abdominal pain, No nausea, No vomiting Genitourinary: no symptoms reported Musculoskeletal: no symptoms reported All Other Systems Reviewed Negative Unless Noted: Yes Past Upunxkx-Pubtnq-Bznava Hx Patient Social History Tobacco Use?: Yes Tobacco type used: Cigarettes Smoking Status: Current Everyday Smoker Substance use?: No Alcohol Use?: No Pt feels they are or have been: No Immunizations Up To Date PED Vaccines UTD: Yes Seasonal Allergies Seasonal Allergies: No Past Medical History Surgeries: No Respiratory: No Cardiac: Yes Heart Attack, Hypertension Neurological: Yes (heat stroke) Genitourinary: No Ulcer Musculoskeletal: No Endocrine: No HEENT: No Cancer: No Psychosocial: No Integumentary: No Family Medical History Reviewed Nursing Family Hx Physical Exam-Suspected Sepsis Physical Exam Vital Signs Vital Signs - First Documented Capillary Refill : Less Than 3 Seconds Blood Pressure Mean: 71 Height, Weight, BMI Height: '" Weight: lbs. oz. kg; 25.00 BMI Method: General Appearance: Chronically ill, Mild Distress HEENT: PERRL/EOMI, Pharynx Normal Neck: Non Tender, Supple Respiratory: No Accessory Muscle Use, Wheezing (Expiratory) Cardiovascular: Regular Rate, Rhythm, No Murmur Gastrointestinal: Non Tender, Soft Back: Normal Inspection, No CVA Tenderness, No Vertebral Tenderness Extremity: Normal Range of Motion, Non Tender Neurologic/Psychiatric: Alert, Oriented x3 Skin: normal color, warm/dry Focused Exam Lactate Level 10/18/20 04:50: Lactic Acid Level 1.01 Lactic Acid Level Laboratory Tests Test 10/18/20 04:50 Lactic Acid Level 1.01 MMOL/L (0.50-2.00) Progress/Results/Core Measures Suspected Sepsis SIRS Temperature: Pulse: 92 Respiratory Rate: 20 Laboratory Tests 10/18/20 04:40: White Blood Count 10.1 Blood Pressure 84 /65 Mean: 71 10/18/20 04:50: Lactic Acid Level 1.01 Laboratory Tests 10/18/20 04:40: Creatinine 0.81, INR Comment 2.0H, Platelet Count 531H, Total Bilirubin 0.3 Results/Orders Lab Results Laboratory Tests Test 10/18/20 04:40 10/18/20 04:50 10/18/20 06:20 Range/Units White Blood Count 10.1 4.3-11.0 10^3/uL Red Blood Count 3.45 L 3.80-5.11 10^6/uL Hemoglobin 9.8 L 11.5-16.0 g/dL Hematocrit 32 L 35-52 % Mean Corpuscular Volume 92 80-99 fL Mean Corpuscular Hemoglobin 28 25-34 pg Mean Corpuscular Hemoglobin Concent 31 L 32-36 g/dL Red Cell Distribution Width 14.3 10.0-14.5 % Platelet Count 531 H 130-400 10^3/uL Mean Platelet Volume 10.4 9.0-12.2 fL Immature Granulocyte % (Auto) 1 % Neutrophils (%) (Auto) 55 42-75 % Lymphocytes (%) (Auto) 20 12-44 % Monocytes (%) (Auto) 8 0-12 % Eosinophils (%) (Auto) 15 H 0-10 % Basophils (%) (Auto) 1 0-10 % Neutrophils # (Auto) 5.5 1.8-7.8 10^3/uL Lymphocytes # (Auto) 2.1 1.0-4.0 10^3/uL Monocytes # (Auto) 0.8 0.0-1.0 10^3/uL Eosinophils # (Auto) 1.5 H 0.0-0.3 10^3/uL Basophils # (Auto) 0.1 0.0-0.1 10^3/uL Immature Granulocyte # (Auto) 0.1 0.0-0.1 10^3/uL Neutrophils % (Manual) 55 % Lymphocytes % (Manual) 22 % Monocytes % (Manual) 7 % Eosinophils % (Manual) 15 % Band Neutrophils 1 % Hypochromasia SLIGHT Microcytosis SLIGHT Prothrombin Time 23.2 H 12.2-14.7 SEC INR Comment 2.0 H 0.8-1.4 Activated Partial Thromboplast Time 67 H 24-35 SEC Sodium Level 137 135-145 MMOL/L Potassium Level 4.2 3.6-5.0 MMOL/L Chloride Level 103 98-107 MMOL/L Carbon Dioxide Level 23 21-32 MMOL/L Anion Gap 11 5-14 MMOL/L Blood Urea Nitrogen 12 7-18 MG/DL Creatinine 0.81 0.60-1.30 MG/DL Estimat Glomerular Filtration Rate 73 BUN/Creatinine Ratio 15 Glucose Level 108 H 70-105 MG/DL Calcium Level 9.5 8.5-10.1 MG/DL Corrected Calcium 10.3 H 8.5-10.1 MG/DL Total Bilirubin 0.3 0.1-1.0 MG/DL Aspartate Amino Transf (AST/SGOT) 12 5-34 U/L Alanine Aminotransferase (ALT/SGPT) 12 0-55 U/L Alkaline Phosphatase 81 40-136 U/L C-Reactive Protein High Sensitivity 6.32 H 0.00-0.50 MG/DL Total Protein 7.5 6.4-8.2 GM/DL Albumin 3.0 L 3.2-4.5 GM/DL Procalcitonin 0.04 <0.10 NG/ML Lactic Acid Level 1.01 0.50-2.00 MMOL/L Urine Color YELLOW Urine Clarity SL CLOUDY Urine pH 6.0 5-9 Urine Specific [place] 1.015 L 1.016-1.022 Urine Protein NEGATIVE NEGATIVE Urine Glucose (UA) NEGATIVE NEGATIVE Urine Ketones NEGATIVE NEGATIVE Urine Nitrite POSITIVE H NEGATIVE Urine Bilirubin NEGATIVE NEGATIVE Urine Urobilinogen 1.0 < = 1.0 MG/DL Urine Leukocyte Esterase 2+ H NEGATIVE Urine RBC (Auto) TRACE-I NEGATIVE Urine RBC RARE /HPF Urine WBC 10-25 H /HPF Urine Squamous Epithelial Cells 5-10 /HPF Urine Crystals NONE /LPF Urine Bacteria LARGE H /HPF Urine Casts NONE /LPF Urine Mucus NEGATIVE /LPF Urine Culture Indicated CULTURE PENDING My Orders Orders - ROMMEL DAVID MD Cbc With Automated Diff (10/18/20 04:48) Comprehensive Metabolic Panel (10/18/20 04:48) Blood Culture (10/18/20 04:48) Sputum Culture (10/18/20 04:48) Urinalysis (10/18/20 04:48) Urine Culture (10/18/20 04:48) Protime With Inr (10/18/20 04:48) Partial Thromboplastin Time (10/18/20 04:48) Chest 1 View, Ap/Pa Only (10/18/20 04:48) Ed Iv/Invasive Line Start (10/18/20 04:48) Vital Signs Adult Sepsis Patie Q15M (10/18/20 04:48) O2 (10/18/20 04:48) Remove Rings In Anticipation O (10/18/20 04:48) Lactic Acid Analyzer (10/18/20 04:48) Lactated Ringers (Lr 1000 Ml Iv Solution (10/18/20 04:48) Manual Differential (10/18/20 04:40) Hs C Reactive Protein (10/18/20 06:10) Procalcitonin (Pct) (10/18/20 06:10) Cefepime Injection (Maxipime Injection) (10/18/20 08:15) Vital Signs/I&O 10/18/20 10/18/20 04:40 04:40 Temp 36.9 Pulse 92 Resp 20 B/P (MAP) 84/65 (71) Pulse Ox 96 96 O2 Delivery Nasal Cannula Nasal Cannula O2 Flow Rate 2.00 2.00 Capillary Refill : Less Than 3 Seconds Blood Pressure Mean: 71 Progress Note : Progress Note Seen and evaluated. IV by EMS with normal saline 1 L bolus initiated. We will initiate second IV and initiate LR 1 L bolus for 2 L total. Patient arrives with blood pressure 83/60. This did improve with IV fluid. Sepsis protocol initiated. Monitor patient. 0700: Patient still quite weak appearing although blood pressure is improved. Chest x-ray is very concerning due to bilateral multiple infiltrates noted. Some of this may be residual from Covid but pneumonia is definitely a concern. 0747: Patient does have urinary tract infection and I do have concerns about bilateral pneumonia. I did discuss the case with Dr. Sauer and she accepts patient for admission, inpatient status for the UTI and post Covid pneumonia. Patient's blood pressure has improved currently and dehydration is a part of the concern as well. That seems to be improved. I did discuss this with the patient and she agrees to admission. Patient did have hypotension on arrival but was fluid responsive. Lactic acid is negative. She did get 2 L total of fluid which would accomplish the 30 mL/kg bolus requirement. She seems much improved now. Cefepime 1 g IV. Diagnostic Imaging Diagonstic Imaging: Xray Plain Films/CT/US/NM/MRI: chest Comments Bilateral multi lobar pneumonia Reviewed: Reviewed by Me Departure Communication (Admissions) Time/Spoke to Admitting Phy: 07:47 Impression Primary Impression: Urinary tract infection Qualified Codes: N30.00 - Acute cystitis without hematuria Disposition: ADMITTED INPATIENT Condition: Stable Admissions Decision to Admit Reason: Admit from ER (General) Decision to Admit/Date: Oct 18, 2020 Time/Decision to Admit Time: 07:47 Departure-Patient Inst. Referrals: NO,LOCAL PHYSICIAN (PCP/Family) Primary Care Physician ROMMEL DAVID MD Oct 18, 2020 07:01
[2020-10-18] MEDS ORDERED: CEFEPIME INJECTION 1,000 MG in WATER (STERILE) FOR INJECTION 10 ML IV ONE (08:15)
[2020-10-18] MEDS ORDERED: ONDANSETRON 4 MG/2 ML (SDV) Z0FRAN IV PRN ×2 (09:15→19:00)
[2020-10-18 09:24] VITALS: BP 105/70
[2020-10-18] MEDS: LACTATED RINGERS 1,000 ML IV SCH ×2 (09:47→19:48)
--- NOTE | 2020-10-18 09:54 | Diagnostic Imaging Report ---
Indication: Sepsis. Comparison made with prior examination from 03/01/2019. FINDINGS: There is diffuse bilateral airspace disease. There is cardiomegaly. There is no pleural fusion or pneumothorax. The mediastinum is unremarkable. Some underlying central pulmonary venous congestion cannot be excluded. IMPRESSION: Diffuse bilateral airspace disease suspect for pneumonia possibly COVID. Cardiomegaly and likely some central pulmonary venous congestion. Report was faxed to [facility]/RN Infection Control by pratibha at 9:53AM. Dictated by: Dictated on workstation # [id number]
[2020-10-18] MEDS ORDERED: ALB0.5V INH (11:37)
[2020-10-18] MEDS ORDERED: RIVA1TAB PO (11:37)
[2020-10-18] MEDS ORDERED: ACET-2267 PO (11:38)
[2020-10-18 12:19] VITALS: BP 108/76
[2020-10-18 12:30] VITALS: BP 108/76
[2020-10-18] MEDS ORDERED: RT-ALBUTEROL/IPRATROPIUM 3 ML (DUONEB) VIAL INH PRN (12:45)
[2020-10-18] MEDS: CEFEPIME 1,000 MG/SWFI 10 ML IV PUSH IV SCH ×6 (13:49→23:56)
--- NOTE | 2020-10-18 14:22 | Occupational Therapy Eval ---
OT Evaluation-General/PLF Medical Diagnosis Admission Date Oct 18, 2020 at 07:18 Medical Diagnosis: UTI, post COVID PNA Onset Date: Oct 18, 2020 Therapy Diagnosis Therapy Diagnosis: weakness, decreased ADL status Precautions Precautions/Isolations: Fall Prevention, Standard Precautions Referral Physician: Katie London Reason: Evaluation/Treatment Medical History Pertinent Medical History: HTN Additional Medical History heart attack, heat stroke, ulcers. Current History EMS from home due to SOA and hypotension. Recently discharged 10/15/20 d/t DVT and PE. Has had persistant SOA since discharge. Social History Home: Single Level Current Living Status: Children ADL-Prior Level of Function SCALE: Activities may be completed with or without assistive devices. 6-Fvmoerqlbh-brbtboi completes the activity by him/herself with no assistance from a helper. 5-Set-up or Clean-up Assistance-helper sets up or cleans up; patient completes activity. [place] assists only prior to or following the activity. 4-Supervision or Touching Assistance-helper provides verbal cues and/or touching/steadying and/or contact guard assistance as patient completes act ivity. Assistance may be provided throughout the activity or intermittently. 3-Partial/Moderate Assistance-helper does LESS THAN HALF the effort. [place] lifts, holds or supports trunk or limbs, but provides less than half the effort. 2-Substantial/Maximal Assistance-helper does MORE THAN HALF the effort. [place] lifts or holds trunk or limbs and provides more than half the effort. 7-Atpvikdtu-uppfdy does ALL the effort. Patient does none of the effort to complete the activity. Or, the assistance of 2 or more helpers is required for the patient to complete the activity. If activity was not attempted, code reason: 7-Patient Refused. 9-Not Applicable-not attempted and the patient did not perform the activity before the current illness, exacerbation or injury. 10-Not Attempted due to Environmental Limitations-(lack of equipment, weather restraints, etc.). 88-Not Attempted due to Medical Conditions or Safety Concerns. ADL PLOF Comments Pt indicates IND with ADLs at PLOF. Self Care: Independent Functional Cognition: Independent DME/Equipment: Tub/Shower OT Current Status Subjective Pt seated upright in bed, agreeable to OT evaluation. Pt discussed her current situation and living situation. At one point, pt made comment referring to shooting herself. OT notified nurse of pt's comment. Mental Status/Objective Patient Orientation: Person, Place, Situation Attachments: IV, Oxygen Current Hand Dominance: Right Upper Extremity ROM WFL Upper Extremity Coordination WFL Upper Extremity Strength grossly 3+/5 ADL-Treatment Eating (QC): 6 (IND per pt report) Oral Hygiene (QC): 5 (based on clincial judgment) Other Treatments Pt seated upright in bed, agreeable to OT evaluation and tx. OT educated pt on purpose and benefit of OT, she verbalized understanding. Pt then provided information about PLOF and home set up. Pt indicates she has a son with Autism that she takes care of, and she let a lilly/friend move in with her. This friend brought COVID into the house, and she told him he better be out of the house when she gets home from the hospital. OT educated pt on energy conservation techniques in the home, including sitting while showering and other tasks to decrease energy requirement. OT educated pt on completing UE exercises to increase strength, activity tolerance, and pulmonary function. Pt completed x10 reps each of the following BUE exercises: shoulder flexion, elbow flexion/extension, finger flexion/extension. Pt declined OOB activates at this time due to having a coughing spell prior to OT entering room. Post tx, pt seated upright in bed, call light in reach and all needs met. Education OT Patient Education: Correct positioning, Energy conservation, Exercise program, Modified ADL techniques, Progress toward Goal/Update tx plan, Purpose of tx/functional activities, Rehab process, Safety issues, Transfer techniques Teaching Recipient: Patient Teaching Methods: Discussion Response to Teaching: Verbalize Understanding OT Alf Goals Clutch Assembler Goals Time Frame: Oct 26, 2020 Eating (QC): 6 Oral Hygiene (QC): 6 Toileting Hygiene (QC): 6 Shower/Bathe Self (QC): 6 Upper Body Dressing (QC): 6 Lower Body Dressing (QC): 6 On/Off Footwear (QC): 6 Additional Goals: 1-Demonstrate ADL Tasks, 2-Verbalize Understanding, 3- ImproveStrength/Edmund 1=Demonstrate adherence to instructed precautions during ADL tasks. 2=Patient will verbalize/demonstrate understanding of assistive devices/modifications for ADL. 3=Patient will improve strength/tolerance for activity to enable patient to perform ADL's. OT Education/Plan Problem List/Assessment Assessment: Decreased Activ Tolerance, Decreased UE Strength, Impaired Funct Balance, Impaired I ADL's, Impaired Self-Care Skills, Restricted Funct UE ROM Discharge Recommendations Plan/Recommendations: Continue POC Treatment Plan/Plan of Care Patient would benefit from OT for education, treatment and training to promote independence in ADL's, mobility, safety and/or upper extremity function for ADL's. Plan of Care: ADL Retraining, Functional Mobility, UE Funct Exercise/Act Treatment Duration: Oct 26, 2020 Frequency: 5 times per week Estimated Hrs Per Day: .25 hour per day Rehab Potential: Good Time/GCodes Start Time: 13:35 Stop Time: 14:49 Total Time Billed (hr/min): 14 Billed Treatment Time 1, ANAHY AMIN OT Oct 18, 2020 14:22
[2020-10-18] MEDS: RT-ALBUTEROL/IPRATROPIUM 3 ML (DUONEB) VIAL INH SCH ×2 (14:32→19:25)
--- NOTE | 2020-10-18 14:41 | Physical Therapy Evaluation ---
PT Evaluation-General Medical Diagnosis Admission Date Oct 18, 2020 at 07:18 Medical Diagnosis: UTI, post COVID PNA Onset Date: Oct 18, 2020 Therapy Diagnosis Therapy Diagnosis: debility/weakness Precautions Precautions/Isolations: Fall Prevention, Standard Precautions Referral Physician: Katie Reason for Referral: Evaluation/Treatment Medical History Pertinent Medical History: HTN, Smoking Additional Medical History PE/O2 dependent per patient at 2 L Current History EMS secondary to SOA and hypotension Reviewed History: Yes Social History Home: Single Level Current Living Status: Children Prior Prior Level of Function SCALE: Activities may be completed with or without assistive devices. 8-Lwogmeiqyu-xntpkwi completes the activity by him/herself with no assistance from a helper. 5-Set-up or Clean-up Assistance-helper sets up or cleans up; patient completes activity. [place] assists only prior to or following the activity. 4-Supervision or Touching Assistance-helper provides verbal cues and/or touching/steadying and/or contact guard assistance as patient completes activity. Assistance may be provided throughout the activity or intermittently. 3-Partial/Moderate Assistance-helper does LESS THAN HALF the effort. Bowie lif ts, holds or supports trunk or limbs, but provides less than half the effort. 2-Substantial/Maximal Assistance-helper does MORE THAN HALF the effort. [place]ie lifts or holds trunk or limbs and provides more than half the effort. 1-Zixujcanz-wezjok does ALL the effort. Patient does none of the effort to complete the activity. Or, the assistance of 2 or more helpers is required for the patient to complete the activity. If activity was not attempted, code reason: 7-Patient Refused. 9-Not Applicable-not attempted and the patient did not perform the activity before the current illness, exacerbation or injury. 10-Not Attempted due to Environmental Limitations-(lack of equipment, weather restraints, etc.). 88-Not Attempted due to Medical Conditions or Safety Concerns. Bed Mobility: 6 Transfers (B,C,W/C): 6 Gait: 6 Stairs: 6 Indoor Mobility (Ambulation): Independent Stairs: Independent Prior Devices Use: None PT Evaluation-Current Subjective Patient agrees to PT. Objective Patient Orientation: Normal For Age Attachments: Oxygen, IV ROM/Strength ROM Lower Extremities bilateral LE WFL Strength Lower Extremities 4/5 grossly bilateral LE Integumentary/Posture Bowel Incontinence: No Bladder Incontinence: No Posture WFL Neuromuscular (Tone, Coordination, Reflexes) grossly intact Sensory Vision: Functional Hearing: Functional Hand Dominance: Right Transfers Sit to Lying (QC): 6 Lying to Sitting/Side of Bed(Q: 6 Sit to Stand (QC): 6 Gait Does the Patient Walk?: Yes Mode of Locomotion: Walk Anticipated Mode of Locomotion: Walk Walk 10 feet (QC): 6 Walk 50 ft with 2 Turns(QC): 6 Walk 150 ft (QC): 6 Distance: 250' Gait Assistive Device: None Comments/Gait Description safe and functional with no deviation Balance Sitting Static: Normal Sitting Dynamic: Normal Standing Static: Normal Standing Dynamic: Normal Picking up an Object (QC): 6 Assessment/Needs 60 y.o. female, is currently at [facility] with all gross motor skills and does not require skilled therapy intervention. Rehab Potential: Fair PT Plan Treatment/Plan Treatment Plan: Discontinue PT Treatment Duration: Oct 18, 2020 Frequency: 1 time per week Estimated Hrs Per Day: .25 hour per day Patient and/or Family Agrees t: Yes Discharge Recommendations Therapy Discharge Recommendati: Home & Family Time/GCodes Time In: 1311 Time Out: 1327 Total Billed Treatment Time: 16 Total Billed Treatment 1 visit EVModC 16 min MARK ANTHONY GLASER PT Oct 18, 2020 14:41
[2020-10-18 16:00] VITALS: BP 96/63
[2020-10-18] MEDS ORDERED: RIVAROXABAN PO SCH (19:00)
[2020-10-18] MEDS ORDERED: diphenhydrAMINE 25 MG TAB (BENADRYL) PO PRN (19:00)
[2020-10-18] MEDS ORDERED: ANTACID SUSP 30 ML UDC (MYLANTA) PO PRN (19:00)
[2020-10-18] MEDS ORDERED: polyethylene glycoL POWDER 17 GM (MIRALAX) PACK PO PRN (19:00)
[2020-10-18] MEDS ORDERED: ONDANSETRON 4 MG (ZOFRAN) ORAL DISSOLVE TAB PO PRN (19:00)
--- NOTE | 2020-10-18 19:12 | History & Physical-Hospitalist ---
History of Present Illness HPI/Chief Complaint Porsche López is a 60 year old female presenting with weakness. She had COVID about a month ago. She subsequently developed a pulmonary embolism and was started on anticoagulation. She has continued to have issues with shortness of breath and cough. She denies dysuria. She has had urinary urgency. She denies abdominal pain. She is not having nausea or vomiting. She denies fevers. She has been taking her blood thinners. Source: patient Exam Limitations: no limitations Date Seen 10/18/20 Time Seen by a Provider: 10:40 Attending Physician Peggy Patrick MD PCP No,Local Physician Referring Physician Date of Admission Oct 18, 2020 at 07:18 Home Medications & Allergies Home Medications Reviewed patient Home Medication Reconciliation performed by pharmacy medication reconciliations accelerator technician and/or nursing. Patients Allergies have been reviewed. Allergies Allergies Coded Allergies No Known Drug Allergies (Kxewcxzord31/31/19) Past Pvmnlid-Rppcxs-Fpbvxt Hx Patient Social History Tobacco Use?: Yes Tobacco type used: Cigarettes Smoking Status: Current Everyday Smoker Substance use?: No Alcohol Use?: No Pt feels they are or have been: No Immunizations Up To Date Tetanus Booster (TDap): Unknown Hepatitis A: No Hepatitis B: No PED Vaccines UTD: Yes Seasonal Allergies Seasonal Allergies: No Current Status status: No status: No Advance Directives: No Communicates: Verbally Primary Language: Hebrew Preferred Spoken Language: Hebrew Is interpretation needed?: No Implanted or Applied Medical D: None Past Medical History Pulmonary Embolism Heart Attack, Hypertension Ulcer Family Medical History Reviewed Nursing Family Hx No Pertinent Family Hx Review of Systems Constitutional: weakness EENTM: no symptoms reported Respiratory: cough, short of breath Cardiovascular: no symptoms reported Gastrointestinal: no symptoms reported Genitourinary: incontinence Musculoskeletal: no symptoms reported Skin: no symptoms reported Psychiatric/Neurological: Depressed Physical Exam Physical Exam Vital Signs Vital Signs - First Documented 10/18/20 12:30 FiO2 99 Capillary Refill : Less Than 3 Seconds Height, Weight, BMI Height: '" Weight: lbs. oz. kg; 25.71 BMI Method: General Appearance: No Apparent Distress, WD/WN HEENT: PERRL/EOMI, Pharynx Normal Neck: Normal Inspection, Supple Respiratory: Lungs Clear, Normal Breath Sounds, No Respiratory Distress Cardiovascular: Regular Rate, Rhythm, No Edema, No Murmur Gastrointestinal: Normal Bowel Sounds, Non Tender, Soft Extremity: Normal Inspection, Non Tender, No Pedal Edema Neurologic/Psychiatric: Alert, Oriented x3, Depressed Affect Skin: Normal Color, Warm/Dry Results Results/Procedures Labs Laboratory Tests 10/18/20 04:40 Patient resulted labs reviewed. Imaging: Reviewed Imaging Report Assessment/Plan Admission Diagnosis Urinary tract infection Admission Status: Inpatient Order (span 2 midnights) Reason for Inpatient Admission: IV antibiotics Assessment and Plan UTI UA consistent with UTI Urine culture pending Started on Rocephin IV fluids PE Continue Xarelto Chronic respiratory failure with hypoxia Post COVID syndrome Supplemental oxygen as needed Diagnosis/Problems Diagnosis/Problems (1) UTI (urinary tract infection) Status: Acute Qualifiers: Urinary tract infection type: acute cystitis Hematuria presence: without hematuria Qualified Codes: N30.00 - Acute cystitis without hematuria (2) Pulmonary embolism Status: Acute (3) Post-COVID syndrome Status: Chronic PEGGY PATRICK MD Oct 18, 2020 19:12
[2020-10-18] MEDS: RT--FLUTICASONE/SALMETEROL 232-14 (AIRDUO RespiCLICK) IH SCH (19:25)
[2020-10-18] MEDS ORDERED: NICOTINE 14 MG (NICODERM) PATCH TD NR (19:30)
[2020-10-18] MEDS: RIVAROXABAN 15 MG TABLET (XARELTO) PO SCH (19:47)
[2020-10-18] MEDS: GABAPENTIN 600 MG (NEURONTIN) TAB PO SCH (19:48)
[2020-10-18] MEDS: SENNOSIDES 8.6 MG (SENOKOT) TAB PO SCH (19:48)
[2020-10-18] MEDS: DOCUSATE SODIUM 100 MG (COLACE) CAP PO SCH (19:48)
[2020-10-18] MEDS: lamoTRIgine 25 MG (LaMICtal) TAB PO SCH (19:48)
[2020-10-18] MEDS: guaiFENesin/DM (ROBITUSSIN DM) 10 ML UDC PO PRN ×2 (19:56→23:56)
[2020-10-18 20:40] VITALS: BP 108/76
[2020-10-18] MEDS ORDERED: NON-FORMULARY MEDICATION 1 EA EA (Budesonide/Formoterol Fumarate (Symbicort 160-4.5 Mcg In IH SCH (21:00)
[2020-10-18 23:27] VITALS: BP 115/80
[2020-10-19] MEDS: RT-ALBUTEROL/IPRATROPIUM 3 ML (DUONEB) VIAL INH SCH ×4 (02:14→19:52)
[2020-10-19 03:28] VITALS: BP 92/65
[2020-10-19] MEDS: CEFEPIME 1,000 MG/SWFI 10 ML IV PUSH IV SCH ×8 (05:15→23:38)
[2020-10-19] MEDS: LACTATED RINGERS 1,000 ML IV SCH ×2 (05:15→12:10)
[2020-10-19 05:19] LABS: BASOPHILS # (AUTO) 0.1 10^3/uL (0.0-0.1); BASOPHILS % (AUTO) 1 % (0-10); EOSINOPHILS # (AUTO) 0.6 10^3/uL (0.0-0.3); EOSINOPHILS % (AUTO) 6 % (0-10); HEMATOCRIT 30 % (35-52); HEMOGLOBIN 9.3 g/dL (11.5-16.0); LYMPHOCYTES # (AUTO) 1.5 10^3/uL (1.0-4.0); LYMPHOCYTES % (AUTO) 13 % (12-44); MEAN CORPUSCULAR HEMOGLOBIN 28 pg (25-34); MEAN CORPUSCULAR HGB CONC 31 g/dL (32-36); MEAN CORPUSCULAR VOLUME 92 fL (80-99); MEAN PLATELET VOLUME 10.4 fL (9.0-12.2); MONOCYTES # (AUTO) 0.9 10^3/uL (0.0-1.0); MONOCYTES % (AUTO) 8 % (0-12); NEUTROPHILS # (AUTO) 8.3 10^3/uL (1.8-7.8); NEUTROPHILS % (AUTO) 72 % (42-75); PLATELET COUNT 474 10^3/uL (130-400); WHITE BLOOD COUNT 11.5 10^3/uL (4.3-11.0)
[2020-10-19 05:33] LABS: POTASSIUM 4.2 MMOL/L (3.6-5.0)
[2020-10-19 05:35] LABS: CALCIUM 9.2 MG/DL (8.5-10.1)
[2020-10-19 05:39] LABS: CREATININE SERUM 0.84 MG/DL (0.60-1.30)
[2020-10-19] MEDS: RT--FLUTICASONE/SALMETEROL 232-14 (AIRDUO RespiCLICK) IH SCH ×2 (07:54→20:00)
[2020-10-19 08:04] VITALS: BP 95/58
[2020-10-19] MEDS: GABAPENTIN 600 MG (NEURONTIN) TAB PO SCH ×2 (08:44→20:03)
[2020-10-19] MEDS: guaiFENesin/DM (ROBITUSSIN DM) 10 ML UDC PO PRN ×2 (08:44→18:04)
[2020-10-19] MEDS: RIVAROXABAN 15 MG TABLET (XARELTO) PO SCH ×2 (08:44→17:58)
[2020-10-19] MEDS: lamoTRIgine 25 MG (LaMICtal) TAB PO SCH ×2 (08:44→20:03)
[2020-10-19] MEDS: NICOTINE 14 MG (NICODERM) PATCH TD SCH (08:44)
[2020-10-19] MEDS: NICOTINE PATCH REMOVAL TP SCH (08:44)
[2020-10-19] MEDS: DOCUSATE SODIUM 100 MG (COLACE) CAP PO SCH ×2 (08:49→20:03)
[2020-10-19] MEDS: ACETAMINOPHEN 325 MG TABLET PO PRN (08:50)
[2020-10-19] MEDS: SENNOSIDES 8.6 MG (SENOKOT) TAB PO SCH ×2 (08:50→20:03)
[2020-10-19 11:02] VITALS: BP 86/48
--- NOTE | 2020-10-19 11:47 | Occ Therapy Progress Note ---
Therapy Progress Note Pt laying in bed sleeping upon OT arrival. Pt states she is independent with ADLs and feels like she is at her PLOF. She does not have any concerns with her ability with completing ADLs upon discharge. Discharge from OT at this time due to pt being at PLOF and independent with ADLs, no further skilled OT services indicated. 1, visit ANAHY CHADWICK OT Oct 19, 2020 11:47
[2020-10-19] MEDS ORDERED: LACTATED RINGERS 1,000 ML IV SCH (12:15)
[2020-10-19 15:50] VITALS: BP 113/78
--- NOTE | 2020-10-19 16:14 | Progress Note - Hospitalist ---
Subjective HPI/CC On Admission Date Seen by Provider: Oct 19, 2020 Time Seen by Provider: 11:25 Porsche López is a 60 year old female presenting with weakness. She had COVID about a month ago. She subsequently developed a pulmonary embolism and was started on anticoagulation. She has continued to have issues with shortness of breath and cough. She denies dysuria. She has had urinary urgency. She denies abdominal pain. She is not having nausea or vomiting. She denies fevers. She has been taking her blood thinners. Subjective/Events-last exam She is doing a bit better today. She is having some trouble sleeping. She continues to have a cough. She is short of breath with exertion. Focused Exam Lactate Level 10/18/20 04:50: Lactic Acid Level 1.01 Objective Exam Vital Signs Vital Signs Date Time Temp Pulse Resp B/P (MAP) Pulse Ox O2 Delivery O2 Flow Rate FiO2 10/19/20 15:50 36.4 112 18 113/78 (90) 93 Nasal Cannula 2.00 10/18/20 12:30 99 Capillary Refill : Less Than 3 Seconds General Appearance: No Apparent Distress, WD/WN Respiratory: Lungs Clear, Normal Breath Sounds, No Respiratory Distress Cardiovascular: Regular Rate, Rhythm, No Edema, No Murmur Gastrointestinal: Normal Bowel Sounds, Non Tender, Soft Extremity: Normal Inspection, Non Tender, No Pedal Edema Neurologic/Psychiatric: Alert, Oriented x3, Depressed Affect Skin: Normal Color, Warm/Dry Results/Procedures Lab Laboratory Tests 10/19/20 05:10 Patient resulted labs reviewed. Imaging: Reviewed Imaging Report Assessment/Plan Assessment and Plan Assess & Plan/Chief Complaint UTI UA consistent with UTI Urine culture growing E. coli Continue Rocephin Stop IV fluids PE Continue Xarelto Chronic respiratory failure with hypoxia Post COVID syndrome Supplemental oxygen as needed Perform home oxygen study with ambulation Diagnosis/Problems Diagnosis/Problems (1) UTI (urinary tract infection) Status: Acute Qualifiers: Urinary tract infection type: acute cystitis Hematuria presence: without hematuria Qualified Codes: N30.00 - Acute cystitis without hematuria (2) Pulmonary embolism Status: Acute (3) Post-COVID syndrome Status: Chronic RACHEL PATRICK MD Oct 19, 2020 16:13
[2020-10-19] MEDS ORDERED: ZOLPIDEM 5 MG (AMBIEN) TAB PO PRN (16:15)
[2020-10-19 19:27] VITALS: BP 101/53
[2020-10-19] MEDS: MELATONIN 3 MG TABLET PO PRN (20:03)
[2020-10-20] VITALS (8 sets, daily range): BP systolic 92–109; BP diastolic 58–77
[2020-10-20] MEDS: CEFEPIME 1,000 MG/SWFI 10 ML IV PUSH IV SCH ×8 (05:17→23:42)
[2020-10-20] MEDS: RT-ALBUTEROL/IPRATROPIUM 3 ML (DUONEB) VIAL INH SCH ×4 (05:45→20:34)
[2020-10-20] MEDS: DOCUSATE SODIUM 100 MG (COLACE) CAP PO SCH ×2 (07:56→20:15)
[2020-10-20] MEDS: SENNOSIDES 8.6 MG (SENOKOT) TAB PO SCH ×2 (07:56→20:14)
[2020-10-20] MEDS: lamoTRIgine 25 MG (LaMICtal) TAB PO SCH ×2 (07:57→20:14)
[2020-10-20] MEDS: NICOTINE PATCH REMOVAL TP SCH (07:57)
[2020-10-20] MEDS: RIVAROXABAN 15 MG TABLET (XARELTO) PO SCH ×2 (07:57→18:18)
[2020-10-20] MEDS: NICOTINE 14 MG (NICODERM) PATCH TD SCH (07:57)
[2020-10-20] MEDS: GABAPENTIN 600 MG (NEURONTIN) TAB PO SCH ×2 (07:57→20:14)
[2020-10-20] MEDS: RT--FLUTICASONE/SALMETEROL 232-14 (AIRDUO RespiCLICK) IH SCH ×2 (09:48→20:34)
[2020-10-20] MEDS ORDERED: ASPIRIN 81 MG CHEW (CHILDREN'S ASA) PO ONE (11:30)
[2020-10-20] MEDS ORDERED: FUROSEMIDE 40 MG/4 ML INJ (LASIX) IVP ONE (11:30)
--- NOTE | 2020-10-20 12:01 | Diagnostic Imaging Report ---
INDICATION: Chest pain. TIME OF EXAM: 11:47 AM Comparison is made to prior chest 10/18/2020. Diffuse bilateral pulmonary infiltrates persist. This is similar to prior. The heart is enlarged but stable. No effusion. No pneumothorax. IMPRESSION: Continued diffuse bilateral pulmonary infiltrates consistent with pneumonia. Dictated by: Dictated on workstation # [id number]
--- NOTE | 2020-10-20 13:53 | Consultation-Cardiology ---
HPI-Cardiology Cardiology Consultation: Date of Consultation 10/20/20 Time Seen by a Provider: 12:00 Date of Admission Attending Physician Peggy Wilson MD Admitting Physician No,Local Physician Consulting Physician WU RICHARD MD, MA, FACP, FACC, [facility], CCDS Physician requesting consult: Dr Wilson HPI: Chief Complaint: Reason for consultation: Chest pain HPI 60 yo woman with multiple comorbidities (see below under Assessment) who has been admitted to Dr Wilson with UTI and persistent cough and shortness of breath after a recent bout of COVID-19 and subsequent pulmonary embolism. The developed L infra-mammary pain earlier today that was moderate, pleuritic, nonradiating, associated with some shortness of breath, and that lasted approximately an hour or two. At the time of my examination, shortly after having received furosemide, she is feeling better and does not report any chest pain. She has chronic exertional shortness of breath that has been more prominent after recent COVID. She has known about a heart murmur for many years. She smokes cigarettes and states she quit in early Sep 2020 Review of Systems-Cardiology Review of Systems Constitutional: malaise, tiredness; No weight loss, No weight gain Eyes: No vision change Ears/Nose/Throat: No ear discharge, No nasal drainage, No recent hearing loss Respiratory: As described under HPI Cardiovascular: As described under HPI Gastrointestinal: No diarrhea, No nausea, No vomiting Genitourinary: No dysuria, No hematuria Musculoskeletal: No back pain, No joint pain Skin: No rash, No ulcerations Psychiatric/Neurological: No seizure, No focal weakness, No syncope Hematologic: No bleeding abnormalities All Other Systems Reviewed Negative Unless Noted: Yes YXQ-Bhdkpk-Gozwbj Hx Patient Social History Smoking Status: Current Everyday Smoker 2nd Hand Smoke Exposure: Yes Have you traveled recently?: No Alcohol Use?: No Pt feels they are or have been: No Tobacco type used: Cigarettes Past Medical History PMH As described under Assessment. Family Medical History Family Medical History: The patient does not know of any family history of premature coronary artery disease. Allergies and Home Medications Allergies Coded Allergies: No Known Drug Allergies (Unverified , 03/01/19) Home Medications Acetaminophen 500 Mg Tablet, 500-1,000 MG PO Q8H PRN for PAIN-MILD (1-4), (Reported) Last Action: Held Albuterol Sulfate 2.5 Mg/0.5 Ml Vial.neb, 2.5 MG INH Q4- 6H PRN for SHORTNESS OF BREATH, (Reported) Last Action: Held Budesonide/Formoterol Fumarate 10.2 Gm Hfa.aer.ad, 2 PUFF IH BID, (Reported) Last Action: Converted Gabapentin 600 Mg Tablet, 600 MG PO BID, (Reported) Last Action: Continued Lamotrigine 25 Mg Tablet, 25 MG PO BID, (Reported) Last Action: Continued Rivaroxaban 1 Each Tab.ds.pk, 1 EACH PO UD, (Reported) 15 MG TWICE DAILY X 21 DAYS, THEN 20MG DAILY THEREAFTER CURRENTLY TAKING 15MG TWICE DAILY Last Action: Converted Patient Home Medication List Home Medication List Reviewed: Yes Physical Exam-Cardiology Physical Exam Vital Signs/I&O 10/20/20 10/20/20 10/20/20 10/20/20 03:15 08:00 08:00 09:29 Temp 36.7 37.2 Pulse 108 115 Resp 28 18 B/P (MAP) 96/58 (71) 107/70 (82) Pulse Ox 93 92 89 O2 Delivery Nasal Cannula Nasal Cannula Nasal Cannula O2 Flow Rate 4.00 7.00 4.00 4.00 10/20/20 10/20/20 10/20/20 10/20/20 09:43 09:47 09:49 12:14 Pulse 106 104 Resp 30 B/P (MAP) 101/71 (81) Pulse Ox 93 97 92 O2 Delivery Nasal Cannula Nasal Cannula O2 Flow Rate 7.00 4.00 7.00 10/20/20 10/20/20 12:14 13:01 Temp 37.2 Pulse 109 101 Resp 20 B/P (MAP) 107/75 (86) Pulse Ox 97 O2 Delivery Nasal Cannula O2 Flow Rate 4.00 10/20/20 00:00 Intake Total 920 ml Balance 920 ml Capillary Refill : Less Than 3 Seconds Constitutional: AAO x 3, well-developed, well-nourished HEENT: EOMI, hearing is well preserved; No xanthelasmas are seen Neck: carotid pulses are 2 + bilaterally, with good upstrokes Respiratory: No accessory muscle use; other (fair, bilateral air entry; prolonged exp; somewhat diminished bs at bases) Cardiovascular: regular rate-rhythm, S1 and S2, systolic murmur (3/6 MSM) Gastrointestinal: No tender; soft; No guarding, No rebound; audible bowel sounds Extremities: No clubbing, No cyanosis, No significant edema Neurologic/Psychiatric: oriented x 3, other (moves all limbs equally) Skin: normal color, warm/dry; No rash on exposed areas, No ulcerations on exposed areas Data Review Labs Laboratory Tests 10/20/20 10:08: Troponin I 0.348*H, B-Type Natriuretic Peptide 4165.0H Microbiology 10/18/20 Urine Culture - Final, Complete Escherichia coli 10/18/20 Blood Culture - Preliminary, Resulted No growth Laboratory Tests 10/19/20 05:10 ECG Impression ECG EKG : Comment ECG on 10/20/20 during chest pain: sinus with RBBB, not significantly changed from previous ECG A/P-Cardiology Assessment/Admission Diagnosis Chest pain of undetermined etiology - ECG on 10/20/20 during chest pain: sinus with RBBB, not significantly changed from previous ECG Severe aortic stenosis - Echo of 10/11/20: AoV area 0.8 sq cm, mean gradient 40 mmHg Ac on ch systoic and diastolic CHF - Echo of 10/11/20: LVEF 40-45%, grade I diastolic dysfunction Mildly elevated troponin, probably related to ac on ch systoic and diastolic CHF (type II WI) Post-COVID syndrome and pulmonary embolism after COVID-19 in late August 2020 UTI Discussion and Recomendations * Treat with diuretics * Add statin * Continue anticoag * Transfer to cardiac floor * Monitor labs * Pt advised to continue to refrain from smoking * Discussed earlier with WU Martinez MD FACP FAC CCD Oct 20, 2020 13:53
--- NOTE | 2020-10-20 14:05 | Progress Note - Hospitalist ---
Subjective HPI/CC On Admission Date Seen by Provider: Oct 20, 2020 Time Seen by Provider: 10:40 Porsche López is a 60 year old female presenting with weakness. She had COVID about a month ago. She subsequently developed a pulmonary embolism and was started on anticoagulation. She has continued to have issues with shortness of breath and cough. She denies dysuria. She has had urinary urgency. She denies abdominal pain. She is not having nausea or vomiting. She denies fevers. She has been taking her blood thinners. Subjective/Events-last exam She is having worsening shortness of breath. She continues to have a cough. She is getting very short of breath with exertion. She is having chest pain on the left side. It is not radiating. She is not having any nausea or vomiting. She is not having any diaphoresis. Focused Exam Lactate Level 10/18/20 04:50: Lactic Acid Level 1.01 Objective Exam Vital Signs Vital Signs Date Time Temp Pulse Resp B/P (MAP) Pulse Ox O2 Delivery O2 Flow Rate FiO2 10/20/20 13:01 101 10/20/20 12:14 37.2 20 107/75 (86) 97 Nasal Cannula 4.00 10/18/20 12:30 99 Capillary Refill : Less Than 3 Seconds General Appearance: Chronically ill, Mild Distress (Uncomfortable) Respiratory: No Respiratory Distress, Crackles, Wheezing Cardiovascular: Systolic Murmur, Tachycardia Gastrointestinal: Normal Bowel Sounds, Non Tender, Soft Extremity: Normal Inspection, Non Tender, No Pedal Edema Neurologic/Psychiatric: Alert, Oriented x3, Depressed Affect Skin: Normal Color, Warm/Dry Results/Procedures Lab Patient resulted labs reviewed. Imaging: Reviewed Imaging Films, Reviewed Imaging Report Assessment/Plan Assessment and Plan Assess & Plan/Chief Complaint Chest pain NSTEMI Severe aortic stenosis Acute on chronic heart failure with preserved ejection fraction Worsening hypoxia Cardiology consulted Troponin elevated, trend BNP significantly elevated Recent echo with severe aortic stenosis, EF 40-45% Begin Lasix ASA ordered UTI UA consistent with UTI Urine culture growing E. coli Continue Rocephin PE Continue Xarelto Acute on chronic respiratory failure with hypoxia Post COVID syndrome Supplemental oxygen as needed Home oxygen study with increased need Diagnosis/Problems Diagnosis/Problems (1) Acute on chronic respiratory failure with hypoxia Status: Acute (2) Acute on chronic heart failure with preserved ejection fraction (HFpEF) Status: Acute (3) NSTEMI (non-ST elevated myocardial infarction) Status: Acute (4) Aortic stenosis Status: Acute (5) UTI (urinary tract infection) Status: Acute Qualifiers: Urinary tract infection type: acute cystitis Hematuria presence: without hematuria Qualified Codes: N30.00 - Acute cystitis without hematuria (6) Pulmonary embolism Status: Acute (7) Post-COVID syndrome Status: Chronic RACHEL PATRICK MD Oct 20, 2020 14:04
[2020-10-20] MEDS: MELATONIN 3 MG TABLET PO PRN (20:14)
[2020-10-21 04:10] VITALS: BP 92/64
[2020-10-21] MEDS: RT-ALBUTEROL/IPRATROPIUM 3 ML (DUONEB) VIAL INH SCH ×4 (04:50→21:13)
[2020-10-21] MEDS: CEFEPIME 1,000 MG/SWFI 10 ML IV PUSH IV SCH ×4 (05:33→12:31)
[2020-10-21] MEDS: ACETAMINOPHEN 325 MG TABLET PO PRN ×2 (05:36→21:45)
[2020-10-21] MEDS: RT--FLUTICASONE/SALMETEROL 232-14 (AIRDUO RespiCLICK) IH SCH ×2 (07:10→21:12)
[2020-10-21 07:58] VITALS: BP 89/61
[2020-10-21] MEDS: GABAPENTIN 600 MG (NEURONTIN) TAB PO SCH ×2 (08:21→20:26)
[2020-10-21] MEDS: SENNOSIDES 8.6 MG (SENOKOT) TAB PO SCH ×2 (08:21→20:46)
[2020-10-21] MEDS: NICOTINE 14 MG (NICODERM) PATCH TD SCH (08:22)
[2020-10-21] MEDS: lamoTRIgine 25 MG (LaMICtal) TAB PO SCH ×2 (08:22→20:26)
[2020-10-21] MEDS: NICOTINE PATCH REMOVAL TP SCH (08:22)
[2020-10-21] MEDS: RIVAROXABAN 15 MG TABLET (XARELTO) PO SCH ×2 (08:22→17:36)
[2020-10-21] MEDS: ASPIRIN 81 MG CHEW (CHILDREN'S ASA) PO SCH (08:22)
[2020-10-21] MEDS: DOCUSATE SODIUM 100 MG (COLACE) CAP PO SCH ×2 (08:22→20:46)
[2020-10-21] MEDS ORDERED: FUROSEMIDE 40 MG/4 ML INJ (LASIX) IVP SCH (09:00)
[2020-10-21 09:42] LABS: BASOPHILS # (AUTO) 0.1 10^3/uL (0.0-0.1); BASOPHILS % (AUTO) 1 % (0-10); EOSINOPHILS # (AUTO) 0.9 10^3/uL (0.0-0.3); EOSINOPHILS % (AUTO) 7 % (0-10); HEMATOCRIT 33 % (35-52); HEMOGLOBIN 9.9 g/dL (11.5-16.0); LYMPHOCYTES # (AUTO) 1.4 10^3/uL (1.0-4.0); LYMPHOCYTES % (AUTO) 11 % (12-44); MEAN CORPUSCULAR HEMOGLOBIN 28 pg (25-34); MEAN CORPUSCULAR HGB CONC 30 g/dL (32-36); MEAN CORPUSCULAR VOLUME 93 fL (80-99); MEAN PLATELET VOLUME 10.2 fL (9.0-12.2); MONOCYTES # (AUTO) 1.3 10^3/uL (0.0-1.0); MONOCYTES % (AUTO) 10 % (0-12); NEUTROPHILS # (AUTO) 9.1 10^3/uL (1.8-7.8); NEUTROPHILS % (AUTO) 70 % (42-75); PLATELET COUNT 478 10^3/uL (130-400)
[2020-10-21 09:54] LABS: POTASSIUM 3.5 MMOL/L (3.6-5.0)
[2020-10-21 09:55] LABS: CALCIUM 9.4 MG/DL (8.5-10.1)
[2020-10-21 09:59] LABS: CREATININE SERUM 0.88 MG/DL (0.60-1.30)
[2020-10-21 11:34] VITALS: BP 94/67
[2020-10-21 15:30] VITALS: BP 92/63
--- NOTE | 2020-10-21 15:57 | Progress Note - Cardiology ---
Cardiology SOAP Progress Note Subjective: No cp or palp or syncope or shortness of breath No n/v/d Some dizziness with posture changes Objective: I&O/Vital Signs 10/21/20 10/21/20 10/21/20 10/21/20 04:10 05:36 06:06 07:00 Temp 37.8 37.8 36.1 Pulse 106 99 Resp 17 B/P (MAP) 92/64 (73) Pulse Ox 94 O2 Delivery Nasal Cannula O2 Flow Rate 4.00 10/21/20 10/21/20 10/21/20 10/21/20 07:12 07:13 07:58 08:00 Temp 36.0 Pulse 93 Resp 20 B/P (MAP) 89/61 (70) Pulse Ox 94 94 96 O2 Delivery Nasal Cannula Nasal Cannula Nasal Cannula Nasal Cannula O2 Flow Rate 3.00 3.00 4.00 4.00 10/21/20 10/21/20 10/21/20 10/21/20 11:34 13:00 15:04 15:30 Temp 36.5 36.3 Pulse 89 87 99 Resp B/P (MAP) 94/67 (76) 92/63 (73) Pulse Ox 97 92 96 O2 Delivery Nasal Cannula Nasal Cannula Nasal Cannula O2 Flow Rate 4.00 3.00 4.00 10/21/20 00:00 Intake Total 3010 ml Output Total 2250 ml Balance 760 ml Constitutional: AAO x 3, well-developed, well-nourished Respiratory: No accessory muscle use; other (fair, bilateral air entry; prolonged exp; somewhat diminished bs at bases) Cardiovascular: regular rate-rhythm, S1 and S2, systolic murmur (3/6 MSM) Gastrointestional: No tender; soft; No guarding, No rebound; audible bowel sounds Extremities: No clubbing, No cyanosis, No significant edema Neurologic/Psychiatric: oriented x 3, other (moves all limbs equally) Skin: normal color, warm/dry; No rash on exposed areas, No ulcerations on exposed areas Results/Procedures: Labs Laboratory Tests 10/20/20 16:13: Troponin I 0.318*H 10/21/20 09:34: Troponin I 0.221H, White Blood Count 13.0H, Red Blood Count 3.56L, Hemoglobin 9.9L, Hematocrit 33L, Mean Corpuscular Volume 93, Mean Corpuscular Hemoglobin 28, Mean Corpuscular Hemoglobin Concent 30L, Red Cell Distribution Width 14.4, Platelet Count 478H, Mean Platelet Volume 10.2, Immature Granulocyte % (Auto) 2, Neutrophils (%) (Auto) 70, Lymphocytes (%) (Auto) 11L, Monocytes (%) (Auto) 10, Eosinophils (%) (Auto) 7, Basophils (%) (Auto) 1, Neutrophils # (Auto) 9.1H, Lymphocytes # (Auto) 1.4, Monocytes # (Auto) 1.3H, Eosinophils # (Auto) 0.9H, Basophils # (Auto) 0.1, Immature Granulocyte # (Auto) 0.2H, Sodium Level 136, Potassium Level 3.5L, Chloride Level 96L, Carbon Dioxide Level 31, Anion Gap 9, Blood Urea Nitrogen 12, Creatinine 0.88, Estimat Glomerular Filtration Rate 66, BUN/Creatinine Ratio 14, Glucose Level 144H, Lactic Acid Level 1.03, Calcium Level 9.4, Magnesium Level 2.0 Microbiology 10/18/20 Urine Culture - Final, Complete Escherichia coli 10/18/20 Blood Culture - Preliminary, Resulted No growth A/P: Assessment: Chest pain of undetermined etiology - ECG on 10/20/20 during chest pain: sinus with RBBB, not significantly changed from previous ECG Severe aortic stenosis - Echo of 10/11/20: AoV area 0.8 sq cm, mean gradient 40 mmHg Ac on ch systoic and diastolic CHF - Echo of 10/11/20: LVEF 40-45%, grade I diastolic dysfunction Mildly elevated troponin, probably related to ac on ch systoic and diastolic CHF (type II [place]) Post-COVID syndrome and pulmonary embolism after COVID-19 in late August 2020 UTI Plan: * Consider reducing diuretic if dizziness continues * Continue anticoag * Replenish K * Monitor labs * Pt advised to continue to refrain from smoking WU RICHARD MD [facility] CCDS Oct 21, 2020 15:57
[2020-10-21] MEDS ORDERED: KCL 20 MEQ TAB (K-DUR) PO ONE (16:00)
[2020-10-21] MEDS: FUROSEMIDE 40 MG/4 ML INJ (LASIX) IVP SCH (16:26)
--- NOTE | 2020-10-21 16:48 | Progress Note - Hospitalist ---
Subjective HPI/CC On Admission Date Seen by Provider: Oct 21, 2020 Time Seen by Provider: 12:20 Porsche López is a 60 year old female presenting with weakness. She had COVID about a month ago. She subsequently developed a pulmonary embolism and was started on anticoagulation. She has continued to have issues with shortness of breath and cough. She denies dysuria. She has had urinary urgency. She denies abdominal pain. She is not having nausea or vomiting. She denies fevers. She has been taking her blood thinners. Subjective/Events-last exam She is feeling ok. She is not having pain. She is not short of breath. Focused Exam Lactate Level 10/21/20 09:34: Lactic Acid Level 1.03 Objective Exam Vital Signs Vital Signs Date Time Temp Pulse Resp B/P (MAP) Pulse Ox O2 Delivery O2 Flow Rate FiO2 10/21/20 15:30 36.3 99 22 92/63 (73) 96 Nasal Cannula 4.00 10/18/20 12:30 99 Capillary Refill : Less Than 3 Seconds General Appearance: No Apparent Distress, Chronically ill Respiratory: No Respiratory Distress, Crackles, Wheezing Cardiovascular: Regular Rate, Rhythm, No Murmur Gastrointestinal: Normal Bowel Sounds, Non Tender, Soft Extremity: Normal Inspection, Non Tender, No Pedal Edema Neurologic/Psychiatric: Alert, Oriented x3, No Motor/Sensory Deficits, Normal Mood/Affect Skin: Normal Color, Warm/Dry Results/Procedures Lab Laboratory Tests 10/21/20 09:34 Patient resulted labs reviewed. Imaging: Reviewed Imaging Films, Reviewed Imaging Report Assessment/Plan Assessment and Plan Assess & Plan/Chief Complaint NSTEMI Severe aortic stenosis Acute on chronic heart failure with preserved ejection fraction Acute on chronic respiratory failure with hypoxia Cardiology consulted Troponin elevated, trending down BNP significantly elevated Recent echo with severe aortic stenosis, EF 40-45% Continue Lasix ASA UTI UA consistent with UTI Urine culture growing E. coli Transition to Keflex PE Post COVID syndrome Continue Xarelto Supplemental oxygen as needed Diagnosis/Problems Diagnosis/Problems (1) Acute on chronic respiratory failure with hypoxia Status: Acute (2) Acute on chronic heart failure with preserved ejection fraction (HFpEF) Status: Acute (3) NSTEMI (non-ST elevated myocardial infarction) Status: Acute (4) Aortic stenosis Status: Acute (5) UTI (urinary tract infection) Status: Acute Qualifiers: Urinary tract infection type: acute cystitis Hematuria presence: without hematuria Qualified Codes: N30.00 - Acute cystitis without hematuria (6) Pulmonary embolism Status: Acute (7) Post-COVID syndrome Status: Chronic RACHEL PATRICK MD Oct 21, 2020 16:48
[2020-10-21] MEDS: CEPHALEXIN 250 MG (KEFLEX) CAP PO SCH ×2 (17:36→20:26)
[2020-10-21 19:55] VITALS: BP 102/72
[2020-10-21] MEDS: MELATONIN 3 MG TABLET PO PRN (20:26)
[2020-10-21 23:49] VITALS: BP 91/59
[2020-10-22] VITALS (7 sets, daily range): BP systolic 88–105; BP diastolic 59–69
[2020-10-22] MEDS: RT-ALBUTEROL/IPRATROPIUM 3 ML (DUONEB) VIAL INH SCH ×4 (02:21→20:54)
[2020-10-22] MEDS: FUROSEMIDE 40 MG/4 ML INJ (LASIX) IVP SCH (06:07)
[2020-10-22] MEDS: KCL 10 MEQ TAB (MICRO K) PO SCH (06:07)
[2020-10-22 06:35] LABS: POTASSIUM 3.5 MMOL/L (3.6-5.0)
[2020-10-22 06:36] LABS: CALCIUM 9.9 MG/DL (8.5-10.1)
[2020-10-22] MEDS: POTASSIUM CL 10MEQ/50ML IVPB 50 ML IV SCH (06:40)
[2020-10-22 06:41] LABS: CREATININE SERUM 0.78 MG/DL (0.60-1.30)
[2020-10-22] MEDS: KCL 20 MEQ TAB (K-DUR) PO SCH (06:41)
[2020-10-22 06:43] LABS: MAGNESIUM 2.1 MG/DL (1.6-2.4)
[2020-10-22] MEDS ORDERED: KCL 20 MEQ TAB (K-DUR) PO ONE (06:45)
[2020-10-22] MEDS: MAGNESIUM 1 GM/100 ML IVPB 100 ML IV SCH (06:45)
[2020-10-22] MEDS: RT--FLUTICASONE/SALMETEROL 232-14 (AIRDUO RespiCLICK) IH SCH ×2 (07:32→20:54)
[2020-10-22] MEDS: CEPHALEXIN 250 MG (KEFLEX) CAP PO SCH ×4 (09:29→20:26)
[2020-10-22] MEDS: SENNOSIDES 8.6 MG (SENOKOT) TAB PO SCH ×2 (09:29→20:26)
[2020-10-22] MEDS: lamoTRIgine 25 MG (LaMICtal) TAB PO SCH ×2 (09:29→20:27)
[2020-10-22] MEDS: GABAPENTIN 600 MG (NEURONTIN) TAB PO SCH ×2 (09:29→20:26)
[2020-10-22] MEDS: NICOTINE 14 MG (NICODERM) PATCH TD SCH (09:30)
[2020-10-22] MEDS: DOCUSATE SODIUM 100 MG (COLACE) CAP PO SCH ×2 (09:30→20:26)
[2020-10-22] MEDS: NICOTINE PATCH REMOVAL TP SCH (09:30)
[2020-10-22] MEDS: ASPIRIN 81 MG CHEW (CHILDREN'S ASA) PO SCH (09:30)
[2020-10-22] MEDS: RIVAROXABAN 15 MG TABLET (XARELTO) PO SCH ×2 (09:34→17:39)
--- NOTE | 2020-10-22 09:59 | Progress Note - Cardiology ---
Cardiology SOAP Progress Note Subjective: Notes dizziness and malaise Shortness of breath persistent, mild, nearly all the time Cannot sleep No cp or palp or syncope No n/v/d Good appetite Objective: I&O/Vital Signs 10/21/20 10/22/20 10/22/20 10/22/20 23:49 01:00 02:21 04:18 Temp 36.2 36.1 Pulse 95 83 78 Resp 20 20 B/P (MAP) 91/59 (70) 105/60 (75) Pulse Ox 24 98 98 O2 Delivery Nasal Cannula Nasal Cannula Nasal Cannula O2 Flow Rate 4.00 5.00 4.00 10/22/20 10/22/20 10/22/20 10/22/20 06:49 07:32 08:45 08:52 Temp 37.3 Pulse 100 92 Resp 18 B/P (MAP) 98/67 (77) Pulse Ox 89 94 O2 Delivery Nasal Cannula Nasal Cannula Nasal Cannula O2 Flow Rate 3.00 3.50 4.00 10/22/20 00:00 Intake Total 1020 ml Output Total 2800 ml Balance -1780 ml Constitutional: AAO x 3, well-developed, well-nourished Respiratory: No accessory muscle use; other (fair, bilateral air entry; prolonged exp; somewhat diminished bs at bases) Cardiovascular: regular rate-rhythm, S1 and S2, systolic murmur (3/6 MSM) Gastrointestional: No tender; soft; No guarding, No rebound; audible bowel sounds Extremities: No clubbing, No cyanosis, No significant edema Neurologic/Psychiatric: oriented x 3, other (moves all limbs equally) Skin: normal color, warm/dry; No rash on exposed areas, No ulcerations on exposed areas Results/Procedures: Labs Laboratory Tests 10/22/20 05:30: Sodium Level 138, Potassium Level 3.5L, Chloride Level 96L, Carbon Dioxide Level 32, Anion Gap 10, Blood Urea Nitrogen 13, Creatinine 0.78, Estimat Glomerular Filtration Rate 76, BUN/Creatinine Ratio 17, Glucose Level 90, Calcium Level 9.9, Magnesium Level 2.1 Microbiology 10/18/20 Urine Culture - Final, Complete Escherichia coli 10/18/20 Blood Culture - Preliminary, Resulted No growth Laboratory Tests 10/21/20 09:34 10/22/20 05:30 A/P: Assessment: Chest pain of undetermined etiology - ECG on 10/20/20 during chest pain: sinus with RBBB, not significantly changed from previous ECG Severe aortic stenosis - Echo of 10/11/20: AoV area 0.8 sq cm, mean gradient 40 mmHg Ac on ch systoic and diastolic CHF - Echo of 10/11/20: LVEF 40-45%, grade I diastolic dysfunction Mildly elevated troponin, probably related to ac on ch systoic and diastolic CHF (type II [place]) Post-COVID syndrome and pulmonary embolism after COVID-19 in late August 2020 UTI Plan: * CHF appears clinically compensated. Malaise and weakness are worse. BP is low normal. Accordingly, seems reasonable to reduce diureti * Monitor labs * Continue anticoag * Replenish K * Pt advised to continue to refrain from smoking WU RICHARD MD FACP [facility] CCDS Oct 22, 2020 09:59
--- NOTE | 2020-10-22 11:28 | Physical Therapy Progress Note ---
Therapy Progress Note Patient was evaluated by PT on 10/18/20 and found to be independent with all functional mobility. Received a new order on this date. PT will investigate reasoning. MARK ANTHONY GLASER PT Oct 22, 2020 11:28
--- NOTE | 2020-10-22 11:53 | Physical Therapy Evaluation ---
PT Evaluation-General Medical Diagnosis Admission Date Oct 18, 2020 at 07:18 Medical Diagnosis: UTI, post COVID PNA Onset Date: Oct 18, 2020 Therapy Diagnosis Therapy Diagnosis: debility/weakness Precautions Precautions/Isolations: Fall Prevention, Standard Precautions Referral Physician: Marie Reason for Referral: Evaluation/Treatment Medical History Pertinent Medical History: HTN, Smoking Additional Medical History Covid (+) August 2020 Current History decline in status after initial evaluation Reviewed History: Yes Social History Home: Single Level Current Living Status: Children Prior Prior Level of Function SCALE: Activities may be completed with or without assistive devices. 9-[id number] completes the activity by him/herself with no assistance from a helper. 5-Set-up or Clean-up Assistance-helper sets up or cleans up; patient completes activity. [place] assists only prior to or following the activity. 4-Supervision or Touching Assistance-helper provides verbal cues and/or touching/steadying and/or contact guard assistance as patient completes activity. Assistance may be provided throughout the activity or intermittently. 3-Partial/Moderate Assistance-helper does LESS THAN HALF the effort. [place] lifts, holds or supports trunk or limbs, but provides less than half the effort. 2-Substantial/Maximal Assistance-helper does MORE THAN HALF the effort. [place] lifts or holds trunk or limbs and provides more than half the effort. 0-Nfpgsjibz-[id number] does ALL the effort. Patient does none of the effort to complete the activity. Or, the assistance of 2 or more helpers is required for the patient to complete the activity. If activity was not attempted, code reason: 7-Patient Refused. 9-Not Applicable-not attempted and the patient did not perform the activity before the current illness, exacerbation or injury. 10-Not Attempted due to Environmental Limitations-(lack of equipment, weather restraints, etc.). 88-Not Attempted due to Medical Conditions or Safety Concerns. Bed Mobility: 6 Transfers (B,C,W/C): 6 Gait: 6 Stairs: 6 Indoor Mobility (Ambulation): Independent Stairs: Independent Prior Devices Use: None PT Evaluation-Current Subjective Patient reports she had CP and increase SOA 1-2 days after PT last week. Agrees to PT. Objective Patient Orientation: Normal For Age Attachments: Oxygen (4L at rest and increase to 7L per patient with activity) ROM/Strength ROM Lower Extremities bilateral LE WFL Strength Lower Extremities 3+/5 grossly bilateral LE Integumentary/Posture Bowel Incontinence: No Bladder Incontinence: No Neuromuscular (Tone, Coordination, Reflexes) grossly intact Sensory Vision: Functional Hearing: Functional Hand Dominance: Right Transfers Roll Left to Right (QC): 6 Lying to Sitting/Side of Bed(Q: 6 Sit to Stand (QC): 6 Chair/Eih-ni-Fpopz Xfer(QC): 6 Gait Does the Patient Walk?: Yes Mode of Locomotion: Walk Anticipated Mode of Locomotion: Walk Walk 10 feet (QC): 4 Walk 50 ft with 2 Turns(QC): 4 Walk 150 ft (QC): 4 Distance: 250' Gait Assistive Device: FWW Comments/Gait Description slightly unsteady with self correct without FWW/FWW for stability Balance Sitting Static: Normal Sitting Dynamic: Normal Standing Static: Fair Standing Dynamic: Fair Assessment/Needs 60 y.o. female, will be seen short term by skilled PT to address pulmonary function with functional mobility to ensure safe return to home. Rehab Potential: Fair PT Case Management Manager Goals Case Management Manager Goals PT Case Management Manager Goals Time Frame: Oct 27, 2020 Roll Left & Right (QC): 6 Sit to Lying (QC): 6 Lying-Sitting on Side/Bed(QC): 6 Sit to Stand (QC): 6 Chair/Fib-no-Hgrdn Xfer(QC): 6 Toilet Transfer (QC): 6 Does the Patient Walk: Yes Walk 10 feet (QC): 6 Walk 50ft with 2 Turns (QC): 6 Walk 150 ft (QC): 6 PT Plan Problem List Problem List: Activity Tolerance, Balance Treatment/Plan Treatment Plan: Continue Plan of Care Treatment Plan: Education, Functional Activity Edmund, Functional Strength, Gait, Safety, Therapeutic Exercise Treatment Duration: Oct 27, 2020 Frequency: 5 times per week Estimated Hrs Per Day: .25 hour per day Patient and/or Family Agrees t: Yes Discharge Recommendations Therapy Discharge Recommendati: Home & Family Time/GCodes Time In: 1130 Time Out: 1144 Total Billed Treatment Time: 14 Total Billed Treatment 1 visit EVModC 14 min MARK ANTHONY GLASER PT Oct 22, 2020 11:53
--- NOTE | 2020-10-22 12:44 | Progress Note - Hospitalist ---
CIERRA ESPINOSA MED STUDENT 10/22/20 1244: Subjective HPI/CC On Admission Date Seen by Provider: Oct 22, 2020 Time Seen by Provider: 08:30 Porsche López is a 60 year old female presenting with weakness. She had COVID about a month ago. She subsequently developed a pulmonary embolism and was started on anticoagulation. She has continued to have issues with shortness of breath and cough. She denies dysuria. She has had urinary urgency. She denies abdominal pain. She is not having nausea or vomiting. She denies fevers. She has been taking her blood thinners. Subjective/Events-last exam Reports feeling SOB still. No improvement or worsening per her report. Denies chest pain, headache, diarrhea, fevers, chills, and blurry vision. Tolerating po intake well. Wants carson out. Review of Systems General: No Chills, No Night Sweats; Fatigue, Malaise HEENT: No Head Aches, No Visual Changes Pulmonary: Dyspnea, Cough; No Pleuritic Chest Pain Cardiovascular: No: Chest Pain, Palpitations, Edema Gastrointestinal: No: Nausea, Vomiting, Abdominal Pain Genitourinary: No Dysuria, No Frequency; Other (wants carson out) Musculoskeletal: No: neck pain, back pain Neurological: No: Weakness, Numbness Focused Exam Lactate Level 10/21/20 09:34: Lactic Acid Level 1.03 Objective Exam Vital Signs Vital Signs Date Time Temp Pulse Resp B/P (MAP) Pulse Ox O2 Delivery O2 Flow Rate FiO2 10/22/20 11:43 101/69 (80) 10/22/20 11:40 95 10/22/20 11:40 37.1 20 96 Nasal Cannula 3.50 10/18/20 12:30 99 Capillary Refill : Less Than 3 Seconds General Appearance: No Apparent Distress, Chronically ill HEENT: PERRL/EOMI, Pharynx Normal, Moist Mucous Membranes Neck: Full Range of Motion, Normal Inspection, Non Tender Respiratory: Chest Non Tender, No Accessory Muscle Use, No Respiratory Distress, Decreased Breath Sounds, Rhonci, Wheezing Cardiovascular: Regular Rate, Rhythm, No Edema, Normal Peripheral Pulses, Systolic Murmur Gastrointestinal: Normal Bowel Sounds, Non Tender, Soft Rectal: Deferred Extremity: Normal Capillary Refill, Normal Inspection, Non Tender, No Pedal Edema, Calf Tenderness (residual right mid calf tenderness since dvt several weeks ago) Neurologic/Psychiatric: Alert, Oriented x3, No Motor/Sensory Deficits, Normal Mood/Affect Skin: Normal Color, Warm/Dry Lymphatic: No Adenopathy Results/Procedures Lab Laboratory Tests 10/22/20 05:30 Patient resulted labs reviewed. Imaging: Reviewed Imaging Films, Reviewed Imaging Report Assessment/Plan Assessment and Plan Assess & Plan/Chief Complaint SOB/malaise/Generalized weakness -improving slowly -pt and ot consult -encouraged frequent repositioning and up in chair TID UTI - keflex -E. coli in urine -remove carson catheter today NSTEMI -cardiology following -troponin trended down -continue current management Recent Bilateral PE -continue xarelto Post COVID Syndrome/acute on chronic resp failure -continue supportive care -oxygen, titrate to keep O2 sat >90% -IS q2hr WA -frequent cough and deep breathing -continue airduo and duonebs Aortic Stenosis -per echo 10-11-2020 Ascending aortic aneurysm per CT angio chest 10-11-20 Infrarenal abdominal aneurysm per CT angio 10-11-20 H/o NSTEMI HTN -monitor closely Tobacco use disorder -encouraged permanent cessation -nicotine patch Bipolar disorder -continue home meds CHANTAL ALSTON DO 10/23/20 0513: Subjective Subjective/Events-last exam Pt very weak Keflex for UTI Pulmonary consult initiated Admitted on 10/18 for hypotension found to have sepsis from UTI Has hx of aortic stenosis and cardiology has been consulted Pt found to have pulmonary embolism Placed on Xarelto We will initiate PT and OT and DC the catheter Review of Systems General: Fatigue, Malaise Objective Exam General Appearance: No Apparent Distress, WD/WN, Chronically ill, Thin Respiratory: No Accessory Muscle Use, No Respiratory Distress, Decreased Breath Sounds, Wheezing Cardiovascular: Regular Rate, Rhythm, Systolic Murmur Neurologic/Psychiatric: Alert, Oriented x3, Depressed Affect Assessment/Plan Assessment and Plan Assess & Plan/Chief Complaint Sepsis treatment successful Appreciate cardiology PT and OT Discontinue catheter Supervisory-Addendum Brief Verification & Attestation Participated in pt care: history, MDM, physical Personally performed: exam, history, MDM, supervision of care Care discussed with: Medical Student Procedures: n/a Results interpretation: Verified all documentation Verification and Attestation of Medical Student E/M Service A medical student performed and documented this service in my presence. I reviewed and verified all information documented by the medical student and made modifications to such information, when appropriate. I personally performed the physical exam and medical decision making. Chantal Alston, Oct 23, 2020,05:12 CIERRA ESPINOSA MED STUDENT Oct 22, 2020 12:44 CHANTAL ALSTON DO Oct 23, 2020 05:13
--- NOTE | 2020-10-22 12:55 | Pulmonary Consultation ---
History of Present Illness History of Present Illness Date Seen by Provider: Oct 22, 2020 Time Seen by Provider: 13:42 Date of Admission This is a 60 y old lady admitted to the with weakness and sob. She had COVID about a month ago. She subsequently developed a pulmonary embolism and was started on anticoagulation. She has continued to have issues with shortness of breath and cough. She denies dysuria. She has had urinary urgency. She denies abdominal pain. She is not having nausea or vomiting. She denies fevers. She has been taking her blood thinners. Pt has cough with no sputum production/ muscle pain due to coughing spells. no change in leg swelling. Allergies and Home Medications Allergies Coded Allergies: No Known Drug Allergies (Unverified , 03/01/19) Home Medications Acetaminophen 500 Mg Tablet, 500-1,000 MG PO Q8H PRN for PAIN-MILD (1-4), (Reported) Albuterol Sulfate 2.5 Mg/0.5 Ml Vial.neb, 2.5 MG INH Q4- 6H PRN for SHORTNESS OF BREATH, (Reported) Budesonide/Formoterol Fumarate 10.2 Gm Hfa.aer.ad, 2 PUFF IH BID, (Reported) Gabapentin 600 Mg Tablet, 600 MG PO BID, (Reported) Lamotrigine 25 Mg Tablet, 25 MG PO BID, (Reported) Rivaroxaban 1 Each Tab.ds.pk, 1 EACH PO UD, (Reported) 15 MG TWICE DAILY X 21 DAYS, THEN 20MG DAILY THEREAFTER CURRENTLY TAKING 15MG TWICE DAILY Past Medical/Social/Family Hx Patient Social History Tobacco Use?: Yes Tobacco type used: Cigarettes Smoking Status: Current Everyday Smoker Smokeless Tobacco Frequency: Current Someday User Substance use?: No Alcohol Use?: No Pt stated abuse/neglect: No Immunizations Up To Date Influenza Vaccine Up-to-Date: No; Not Current Tetanus Booster (TDap): Unknown Hepatitis A: No Hepatitis B: No TB Skin Test: None Current Status status: No status: No Advance Directives: No Communicates: Verbally Primary Language: Singaporean Preferred Spoken Language: Singaporean Is interpretation needed?: No Implanted or Applied Medical D: None Past Medical History COVID 19 PE CHF LVEF 40-45% Review of Systems Constitutional: weakness Sepsis Event Evaluation Height, Weight, BMI Height: '" Weight: lbs. oz. kg; 25.71 BMI Method: Exam Exam Patient acknowledged, consented, and participated in this virtual visit which was conducted using real time audio/video Vital Signs Date Time Temp Pulse Resp B/P (MAP) Pulse Ox O2 Delivery O2 Flow Rate FiO2 10/22/20 11:43 101/69 (80) 10/22/20 11:42 102/69 (80) 10/22/20 11:40 95 88/61 (70) 10/22/20 11:40 37.1 95 20 102/69 (80) 96 Nasal Cannula 3.50 10/22/20 08:52 Nasal Cannula 4.00 10/22/20 08:45 37.3 92 18 98/67 (77) 94 Nasal Cannula 3.50 10/22/20 07:32 89 Nasal Cannula 3.00 10/22/20 06:49 100 10/22/20 04:18 36.1 78 20 105/60 (75) 98 Nasal Cannula 4.00 10/22/20 02:21 98 Nasal Cannula 5.00 10/22/20 01:00 83 10/21/20 23:49 36.2 95 20 91/59 (70) 24 Nasal Cannula 4.00 10/21/20 21:16 94 Nasal Cannula 5.00 10/21/20 21:14 89 Nasal Cannula 3.00 10/21/20 20:20 Nasal Cannula 4.00 10/21/20 19:55 36.4 111 22 102/72 (82) 96 Nasal Cannula 4.00 10/21/20 19:00 95 10/21/20 15:30 36.3 99 22 92/63 (73) 96 Nasal Cannula 4.00 10/21/20 15:04 92 Nasal Cannula 3.00 10/21/20 13:00 87 I & O 10/22/20 07:00 Intake Total 1270 ml Output Total 3300 ml Balance -2030 ml Height & Weight Height: '" Weight: lbs. oz. kg; 25.71 BMI Method: General Appearance: No Apparent Distress, Chronically ill, Mild Distress HEENT: PERRL/EOMI, Pharynx Normal, Moist Mucous Membranes Neck: Full Range of Motion, Normal Inspection, Non Tender Respiratory: Chest Non Tender, No Accessory Muscle Use, No Respiratory Distress, Decreased Breath Sounds, Rhonci, Wheezing Cardiovascular: Regular Rate, Rhythm, No Edema, Normal Peripheral Pulses, Systolic Murmur Capillary Refill: Less Than 3 Seconds Extremity: Normal Capillary Refill, Normal Inspection, Non Tender, No Pedal Edema, Calf Tenderness (residual right mid calf tenderness since dvt several weeks ago) Neurologic/Psychiatric: Alert, Oriented x3, No Motor/Sensory Deficits, Normal Mood/Affect Skin: Normal Color, Warm/Dry Lymphatic: No Adenopathy Results Lab Laboratory Tests 10/21/20 09:34 10/22/20 05:30 Assessment/Plan Assessment/Plan Acute hypoxemic resp failure -post COVID PE ro reoccurance: ct angio pe protocol advised/ continue anticoagulation/ d dimer to be trended -chf consider nocturnal bipap 12/04 advised -bacterial coinfection: check procal for trending purpose pt was seen via DUANE Camacho MD Oct 22, 2020 12:55
[2020-10-22 13:53] LABS: ABG BASE EXCESS 7.2 MMOL/L (-2.5-2.5); ABG OXYGEN SATURATION 97 % (94-100); ABG PCO2 47 MMHG (35-45); ABG PH 7.44 (7.37-7.43); ABG PO2 76 MMHG (79-93); ABG TCO2 33.2 MMOL/L (21.0-31.0)
[2020-10-22 13:59] LABS: ALLENS TEST POSITIVE; INSPIRED O2 3 L; PATIENT TEMP 35.6; VENTILATOR NO
[2020-10-22] MEDS ORDERED: CATHETER FLUSH 10 ML SYR IV PRN (14:15)
[2020-10-22] MEDS ORDERED: HOLD METFORMIN - RECEIVED CONTRAST 20 ML VIAL IV SCH (14:15)
[2020-10-22] MEDS ORDERED: NS 100 ML (IVPB) BAG IV ONE (14:15)
[2020-10-22] MEDS ORDERED: IOHEXOL 350 MG/ML 100 ML (OMNIPAQUE 350) VIAL IV ONE (14:15)
--- NOTE | 2020-10-22 15:28 | Diagnostic Imaging Report ---
PROCEDURE: CT angiography of the chest with contrast. TECHNIQUE: Multiple contiguous axial images were obtained through the chest after uneventful bolus administration of intravenous contrast. 3D reconstructed CTA MIP acquisitions were also performed. Auto Exposure Controls were utilized during the CT exam to meet ALARA standards for radiation dose reduction. INDICATION: Pneumonia with prior history of pulmonary emboli noted on CT angiogram chest study from 10/11/2020. FINDINGS: Evaluation of the pulmonary arterial system again shows thrombus within segmental and subsegmental branches to bilateral lower lobes. The greatest clot burden appears to be involving the right lower lobe. Thrombus in the main right pulmonary artery has cleared. The overall clot burden does appear to be slightly improved. There is thrombus within segmental branches of the right upper lobe. No central emboli are seen. There is no evidence of right heart strain. Thoracic aorta is stable. There is no pericardial or pleural fluid. There are ground-glass infiltrates throughout both upper and lower lobes. Upper abdomen is unremarkable. IMPRESSION: 1. Bilateral segmental and subsegmental pulmonary emboli. The overall clot blurred does appear to be somewhat improved when compared with examination from 11 days earlier. No central emboli are detected. There is no evidence of right heart strain. 2. Continued ground-glass pulmonary infiltrates bilaterally again suggestive of COVID-19 pneumonia. Dictated by: Dictated on workstation # [id number]
--- NOTE | 2020-10-22 15:30 | Occupational Therapy Eval ---
OT Evaluation-General/PLF Medical Diagnosis Admission Date Oct 18, 2020 at 07:18 Medical Diagnosis: UTI, post COVID PNA Onset Date: Oct 18, 2020 Therapy Diagnosis Therapy Diagnosis: Weakness, Decreased ADL skills Precautions Precautions/Isolations: Fall Prevention, Standard Precautions Weight Bear Status Weight Bearing Restriction: Weight Bearing/Tolerated Referral Physician: Marie London Reason: Activity Tolerance, Self Care, Evaluation/Treatment, Strengthening/ROM Medical History Pertinent Medical History: HTN, Smoking Additional Medical History Acute on chronic heart failure, respiratory failure, post covid symptoms, PE. Current History Pt. had Covid a month ago. Since that time she has been SOA and had a cough. She currently is hospitalized with NSTEMI and severe aortic stenosis, as well as having a Pulmonary embolism. Reviewed History: Yes Social History Home: Single Level Current Living Status: Children Entry Into Home: Stairs With Railing ADL-Prior Level of Function SCALE: Activities may be completed with or without assistive devices. 5-Hlgyljgbsy-amyaojb completes the activity by him/herself with no assistance from a helper. 5-Set-up or Clean-up Assistance-helper sets up or cleans up; patient completes activity. [place] assists only prior to or following the activity. 4-Supervision or Touching Assistance-helper provides verbal cues and/or touching/steadying and/or contact guard assistance as patient completes activity. Assistance may be provided throughout the activity or intermittently. 3-Partial/Moderate Assistance-helper does LESS THAN HALF the effort. [place] lifts, holds or supports trunk or limbs, but provides less than half the effort. 2-Substantial/Maximal Assistance-helper does MORE THAN HALF the effort. [place] lifts or holds trunk or limbs and provides more than half the effort. 8-Fhdxlvata-lrknzn does ALL the effort. Patient does none of the effort to complete the activity. Or, the assistance of 2 or more helpers is required for the patient to complete the activity. If activity was not attempted, code reason: 7-Patient Refused. 9-Not Applicable-not attempted and the patient did not perform the activity before the current illness, exacerbation or injury. 10-Not Attempted due to Environmental Limitations-(lack of equipment, weather restraints, etc.). 88-Not Attempted due to Medical Conditions or Safety Concerns. ADL PLOF Comments Pt. typically is independent with daily skills. She does not use a walker, and typically drives. Self Care: Independent Functional Cognition: Independent Drive Self: Yes OT Current Status Subjective Pt. does not report pain, but does report feeling dizzy when she gets up. She states that she feels like she has something in her right ear. Mental Status/Objective Patient Orientation: Person, Place, Time, Situation Attachments: Oxygen Current Hand Dominance: Right Upper Extremity ROM WFL Upper Extremity Strength Right UE- 3+/5 overall Left UE- 3/5 overall ADL-Treatment Eating (QC): 6 (Per pt.) On/Off Footwear (QC): 4 (SBA to doff/don slipper socks seated EOB.) Toileting Hygiene (QC): 4 (Per pt. she requires SBA to toilet self. Son assisted her earlier into bathroom. She had catheter removed this date.) Other Treatments Pt. demonstrates ability to transfer supine-sit with SBA, and sit-stand with SBA at walker. Pt. reports feeling weak and dizzy when moving her head. She is educated on importance of deep breathing, but states that she hates to cough, even though she understands this is good for her. Pt. is tearful, and states "I hate feeling sick like this." Pt. requests to stay sitting on EOB. Son in room with her. Pt. educated on purpose of OT and OT goals, which are to increase overall strength and ADL skills with strength. Pt. verbalizes understanding. All needs met. Education OT Patient Education: Correct positioning, Modified ADL techniques, Progress toward Goal/Update tx plan, Purpose of tx/functional activities, Reviewed precautions, Rehab process, Transfer techniques Teaching Recipient: Patient, Family Teaching Methods: Demonstration, Discussion Response to Teaching: Verbalize Understanding, Return Demonstration OT Skilled Nursing Goals Skilled Nursing Goals Time Frame: Oct 26, 2020 Eating (QC): 6 Oral Hygiene (QC): 6 Toileting Hygiene (QC): 6 Shower/Bathe Self (QC): 6 Upper Body Dressing (QC): 6 Lower Body Dressing (QC): 6 On/Off Footwear (QC): 6 Additional Goals: 1-Demonstrate ADL Tasks, 2-Verbalize Understanding, 3- ImproveStrength/Edmund 1=Demonstrate adherence to instructed precautions during ADL tasks. 2=Patient will verbalize/demonstrate understanding of assistive device s/modifications for ADL. 3=Patient will improve strength/tolerance for activity to enable patient to perform ADL's. OT Education/Plan Problem List/Assessment Assessment: Decreased Activ Tolerance, Decreased UE Strength, Impaired I ADL's, Impaired Self-Care Skills Discharge Recommendations Plan/Recommendations: Continue POC Therapy Discharge Recommendati: Home & Family Treatment Plan/Plan of Care Treatment,Training & Education: Yes Patient would benefit from OT for education, treatment and training to promote independence in ADL's, mobility, safety and/or upper extremity function for ADL's. Plan of Care: ADL Retraining, Functional Mobility, UE Funct Exercise/Act Treatment Duration: Oct 26, 2020 Frequency: 5 times per week Estimated Hrs Per Day: .25 hour per day Agreement: Yes Rehab Potential: Good Time/GCodes Start Time: 14:05 Stop Time: 14:27 Total Time Billed (hr/min): 22 Billed Treatment Time 1, GEMINI ZAMARRIPA OT Oct 22, 2020 15:29
[2020-10-22] MEDS: MELATONIN 3 MG TABLET PO PRN (21:52)
[2020-10-23] VITALS: BP 106/69
[2020-10-23] MEDS: RT-ALBUTEROL/IPRATROPIUM 3 ML (DUONEB) VIAL INH SCH ×3 (02:17→14:32)
[2020-10-23 04:24] VITALS: BP 104/70
[2020-10-23 05:54] LABS: BASOPHILS # (AUTO) 0.1 10^3/uL (0.0-0.1); BASOPHILS % (AUTO) 1 % (0-10); EOSINOPHILS # (AUTO) 1.4 10^3/uL (0.0-0.3); EOSINOPHILS % (AUTO) 11 % (0-10); HEMATOCRIT 29 % (35-52); HEMOGLOBIN 8.8 g/dL (11.5-16.0); LYMPHOCYTES # (AUTO) 1.6 10^3/uL (1.0-4.0); LYMPHOCYTES % (AUTO) 12 % (12-44); MEAN CORPUSCULAR HEMOGLOBIN 28 pg (25-34); MEAN CORPUSCULAR HGB CONC 30 g/dL (32-36); MEAN CORPUSCULAR VOLUME 93 fL (80-99); MEAN PLATELET VOLUME 10.6 fL (9.0-12.2); MONOCYTES # (AUTO) 1.2 10^3/uL (0.0-1.0); MONOCYTES % (AUTO) 9 % (0-12); NEUTROPHILS # (AUTO) 8.5 10^3/uL (1.8-7.8); NEUTROPHILS % (AUTO) 66 % (42-75); PLATELET COUNT 469 10^3/uL (130-400); WHITE BLOOD COUNT 12.8 10^3/uL (4.3-11.0)
[2020-10-23] MEDS: KCL 10 MEQ TAB (MICRO K) PO SCH (06:49)
[2020-10-23 06:55] LABS: ALBUMIN 2.7 GM/DL (3.2-4.5); POTASSIUM 4.6 MMOL/L (3.6-5.0)
[2020-10-23 06:57] LABS: CALCIUM 9.1 MG/DL (8.5-10.1)
[2020-10-23] MEDS: POTASSIUM CL 10MEQ/50ML IVPB 50 ML IV SCH (06:57)
[2020-10-23] MEDS: MAGNESIUM 1 GM/100 ML IVPB 100 ML IV SCH (06:57)
[2020-10-23] MEDS: KCL 20 MEQ TAB (K-DUR) PO SCH (06:57)
[2020-10-23 06:58] LABS: TOTAL PROTEIN 7.1 GM/DL (6.4-8.2)
[2020-10-23 07:00] LABS: BILIRUBIN,TOTAL 0.3 MG/DL (0.1-1.0)
[2020-10-23 07:01] LABS: CREATININE SERUM 0.74 MG/DL (0.60-1.30)
[2020-10-23 07:05] LABS: MAGNESIUM 2.2 MG/DL (1.6-2.4)
[2020-10-23] MEDS: RT--FLUTICASONE/SALMETEROL 232-14 (AIRDUO RespiCLICK) IH SCH (07:29)
[2020-10-23 08:00] VITALS: BP 109/79
[2020-10-23] MEDS: lamoTRIgine 25 MG (LaMICtal) TAB PO SCH (08:39)
[2020-10-23] MEDS: NICOTINE 14 MG (NICODERM) PATCH TD SCH (08:39)
[2020-10-23] MEDS: GABAPENTIN 600 MG (NEURONTIN) TAB PO SCH (08:39)
[2020-10-23] MEDS: RIVAROXABAN 15 MG TABLET (XARELTO) PO SCH (08:39)
[2020-10-23] MEDS: SENNOSIDES 8.6 MG (SENOKOT) TAB PO SCH (08:39)
[2020-10-23] MEDS: ASPIRIN 81 MG CHEW (CHILDREN'S ASA) PO SCH (08:39)
[2020-10-23] MEDS: DOCUSATE SODIUM 100 MG (COLACE) CAP PO SCH (08:39)
[2020-10-23] MEDS: CEPHALEXIN 250 MG (KEFLEX) CAP PO SCH ×2 (08:39→12:17)
[2020-10-23] MEDS: NICOTINE PATCH REMOVAL TP SCH (08:40)
[2020-10-23] MEDS ORDERED: FUROSEMIDE 40 MG/4 ML INJ (LASIX) IVP SCH (09:00)
--- NOTE | 2020-10-23 09:29 | Physical Therapy Daily Note ---
PT Daily Note-Current Subjective Patient reports she slept last night and feels great today. Agrees to PT. Declined FWW use Mental Status Patient Orientation: Normal For Age Attachments: Oxygen Transfers SCALE: Activities may be completed with or without assistive devices. 5-Fltoicneqj-iamgorp completes the activity by him/herself with no assistance from a helper. 5-Set-up or Clean-up Assistance-helper sets up or cleans up; patient completes activity. [place] assists only prior to or following the activity. 4-Supervision or Touching Assistance-helper provides verbal cues and/or touching/steadying and/or contact guard assistance as patient completes activity. Assistance may be provided throughout the activity or intermittently. 3-Partial/Moderate Assistance-helper does LESS THAN HALF the effort. [place] lifts, holds or supports trunk or limbs, but provides less than half the effort. 2-Substantial/Maximal Assistance-helper does MORE THAN HALF the effort. [place] lifts or holds trunk or limbs and provides more than half the effort. 3-Izudjnbcj-ixynff does ALL the effort. Patient does none of the effort to complete the activity. Or, the assistance of 2 or more helpers is required for the patient to complete the activity. If activity was not attempted, code reason: 7-Patient Refused. 9-Not Applicable-not attempted and the patient did not perform the activity before the current illness, exacerbation or injury. 10-Not Attempted due to Environmental Limitations-(lack of equipment, weather restraints, etc.). 88-Not Attempted due to Medical Conditions or Safety Concerns. Lying to Sitting/Side of Bed(Q: 6 Sit to Stand (QC): 6 Gait Training Does the Patient Walk?: Yes Distance: 250' Walk 10 feet (QC): 6 Walk 50 ft with 2 Turns(QC): 6 Walk 150 ft (QC): 6 Gait Assistive Device: None much improved on this date and patient is up independently in room Assessment Patient is currently at independent PLOF and plans to dismiss to home. Patient up independently in room without difficulty. PT Business Systems Administrator Goals Business Systems Administrator Goals PT Mcfp Goals Time Frame: Oct 27, 2020 Roll Left & Right (QC): 6 Sit to Lying (QC): 6 Lying-Sitting on Side/Bed(QC): 6 Sit to Stand (QC): 6 Chair/Mxd-gs-Zdtdp Xfer(QC): 6 Toilet Transfer (QC): 6 Does the Patient Walk: Yes Walk 10 feet (QC): 6 Walk 50ft with 2 Turns (QC): 6 Walk 150 ft (QC): 6 PT Plan Treatment/Plan Treatment Plan: Discontinue PT Treatment Plan: Education, Functional Activity Edmund, Functional Strength, Gait, Safety, Therapeutic Exercise Treatment Duration: Oct 27, 2020 Frequency: 5 times per week Estimated Hrs Per Day: .25 hour per day Patient and/or Family Agrees t: Yes Time/GCodes Time In: 803 Time Out: 814 Total Billed Treatment Time: 11 Total Billed Treatment 1 visit FA 11 min MARK ANTHONY GLASER PT Oct 23, 2020 09:29
--- NOTE | 2020-10-23 10:15 | Pulmonary Progress Note ---
Subjective Date Seen by a Provider: Oct 23, 2020 Time Seen by a Provider: 10:13 Subjective/Events-last exam no major changes BIPAP usage O2 used doing much better Sepsis Event Evaluation Height, Weight, BMI Height: '" Weight: lbs. oz. kg; 25.71 BMI Method: Focused Exam Lactate Level 10/21/20 09:34: Lactic Acid Level 1.03 Exam Exam Patient acknowledged, consented, and participated in this virtual visit which was conducted using real time audio/video Vital Signs Date Time Temp Pulse Resp B/P (MAP) Pulse Ox O2 Delivery O2 Flow Rate FiO2 10/23/20 08:00 36.2 101 24 109/79 (89) 97 Nasal Cannula 3.50 10/23/20 08:00 Nasal Cannula 4.00 10/23/20 07:29 99 Nasal Cannula 3.00 10/23/20 06:40 100 10/23/20 04:24 36.6 101 30 104/70 (81) 98 Nasal Cannula 3.50 10/23/20 02:18 74 29 96 40.00 10/23/20 00:00 36.4 106 30 106/69 (81) 98 NIV Bilevel 40.00 10/22/20 21:45 87 34 94 40.00 10/22/20 20:55 92 Nasal Cannula 4.00 10/22/20 20:54 92 Nasal Cannula 4.00 10/22/20 20:38 Nasal Cannula 4.00 10/22/20 20:00 36.2 101 20 90/65 (73) 95 Nasal Cannula 3.50 10/22/20 19:00 101 10/22/20 16:00 36.2 101 20 93/59 (70) 95 Nasal Cannula 3.50 10/22/20 13:03 100 10/22/20 11:43 101/69 (80) 10/22/20 11:42 102/69 (80) 10/22/20 11:40 95 88/61 (70) 10/22/20 11:40 37.1 95 20 102/69 (80) 96 Nasal Cannula 3.50 I & O 10/23/20 07:00 Intake Total 1020 ml Output Total 1000 ml Balance 20 ml Height & Weight Height: '" Weight: lbs. oz. kg; 25.71 BMI Method: General Appearance: No Apparent Distress, WD/WN, Chronically ill, Thin HEENT: PERRL/EOMI, Pharynx Normal, Moist Mucous Membranes Neck: Full Range of Motion, Normal Inspection, Non Tender Respiratory: No Accessory Muscle Use, No Respiratory Distress, Decreased Breath Sounds, Wheezing Cardiovascular: Regular Rate, Rhythm, Systolic Murmur Capillary Refill: Less Than 3 Seconds Extremity: Normal Capillary Refill, Normal Inspection, Non Tender, No Pedal Edema, Calf Tenderness (residual right mid calf tenderness since dvt several weeks ago) Neurologic/Psychiatric: Alert, Oriented x3, Depressed Affect Skin: Normal Color, Warm/Dry Lymphatic: No Adenopathy Results Lab Laboratory Tests 10/22/20 05:30 10/23/20 05:25 Assessment/Plan Assessment/Plan Acute hypoxemic resp failure -PE in the contetx of COVID: CT angio shows improved clot burden which is desired trend =on apixiban -COVID PNA on dexa -o2 to be continued; dc planning DUANE COON MD Oct 23, 2020 10:14
[2020-10-23] MEDS ORDERED: ATOR20TA66 PO (10:46)
[2020-10-23] MEDS ORDERED: CEPH250C PO (10:46)
[2020-10-23] MEDS ORDERED: RIVA15TA2 PO (10:46)
[2020-10-23] MEDS ORDERED: ASPI81TA64 PO (10:46)
[2020-10-23] MEDS ORDERED: FURO-125 PO (10:46)
[2020-10-23] MEDS ORDERED: POTA10TA36 PO (10:46)
[2020-10-23] MEDS ORDERED: NICO1PAT38 TD (10:46)
[2020-10-23] MEDS ORDERED: RIVA20TA2 PO (10:46)
--- NOTE | 2020-10-23 10:46 | D/C HH Face to Face Order ---
D/C Face to Face Orders Reconcile Patient Problems Problems Reviewed?: Yes Instructions for Patient Via [facility], Patient Instructions/FollowUp: [facility] 1 week Physician to follow Patient: PCP Discharge Diet for Home: No Restrictions Patient Problems: PE Hypoxia Patient Data-Allergies,Ht & Wt Patient Allergies: Coded Allergies: No Known Drug Allergies (Unverified , 03/01/19) Home Health Need/Face to Face Date of Face to Face: Oct 23, 2020 Clinical Findings: Generalized weakness and fatigue, Instability, Muscle weakness, Shortness of breath, Unsteady gait I have seen Pt [id number]: Yes Discharged To: Home Diagnosis/Conditions: pe Patient is Homebound due to: Jessica fall risk due to instabilty, Shortness of breath/distress Homebound Status Due to the above stated illness, injury or surgical procedure (medical condition or diagnosis) and associated clinical findings, the patient is homebound because of his/her inability to leave home except with aid of a supportive device and/or person AND leaving the home requires a considerable and taxing effort or is medically contraindicated. Pt req the following assistanc: Walker Home Health Nursing Orders Home Health Services Order: Nursing Services, [facility]-Evaluate & Treat, Physical Therapy-Evaluate & Treat Home Health Infusion Therapy Line Start Date: Oct 18, 2020 Certify Stmt I certify that this patient is under my care and that I, a nurse practitioner or a physician; a sales assistant entertainment and media working with me, had a face to face encounter that - meets the physician face to face encounter requirements with this patient as dated. ADAM ALSTON DO Oct 23, 2020 10:46
--- NOTE | 2020-10-23 10:47 | Discharge Summary ---
Discharge Summary Hospital Course Was the Problem List Reviewed?: Yes Problems/Dx: (1) Acute on chronic respiratory failure with hypoxia Status: Acute (2) Acute on chronic heart failure with preserved ejection fraction (HFpEF) Status: Acute (3) NSTEMI (non-ST elevated myocardial infarction) Status: Acute (4) Aortic stenosis Status: Acute (5) UTI (urinary tract infection) Status: Acute Qualifiers: Qualified Codes: N30.00 - Acute cystitis without hematuria (6) Pulmonary embolism Status: Acute (7) Post-COVID syndrome Status: Chronic Hospital Course Date of Admission: Oct 18, 2020 at 07:18 Admission Diagnosis : Family Physician/Provider: TrishaLocal Physician Date of Discharge: 10/23/20 Discharge Diagnosis: Severe sepsis from UTI, acute on chronic respiratory failure, pulmonary embolism, status post COVID-19 pneumonia, acute on chronic debility Hospital Course: Hospital course: Pt had an uneventful hospital course although it was six days after sever sepsis requiring pressor therapy and ICU in addition to pulmonary embolism, requiring anticoagulation of Xarelto 15 mg BID for seven days and then 20 mg daily. Pt had PT and OT, home oxygen evaluation initiated, PT and OT will be initiated with home care and Hgb remains stable at 8.8 and she remains chronically ill but she will have close follow-up with PCP. Labs and Pending Lab Test: Laboratory Tests 10/22/20 13:30: D-Dimer 4.54H 10/22/20 13:40: Blood Gas Puncture Site LEFT RADIAL, Blood Gas Patient Temperature 35.6, Arterial Blood pH 7.44H, Arterial Blood Partial Pressure CO2 47H, Arterial Blood Partial Pressure O2 76L, Arterial Blood HCO3 32H, Arterial Blood Total CO2 33.2H , Arterial Blood Oxygen Saturation 97, Arterial Blood Base Excess 7.2H, Enrrique Test POSITIVE, Blood Gas Ventilator Setting NO, Blood Gas Inspired Oxygen 3 L 10/23/20 05:25: White Blood Count 12.8H, Red Blood Count 3.13L, Hemoglobin 8.8L, Hematocrit 29L, Mean Corpuscular Volume 93, Mean Corpuscular Hemoglobin 28, Mean Corpuscular Hemoglobin Concent 30L, Red Cell Distribution Width 14.5, Platelet Count 469H, Mean Platelet Volume 10.6, Immature Granulocyte % (Auto) 1, Neutrophils (%) (Auto) 66, Lymphocytes (%) (Auto) 12, Monocytes (%) (Auto) 9, Eosinophils (%) (Auto) 11H, Basophils (%) (Auto) 1, Neutrophils # (Auto) 8.5H, Lymphocytes # (Auto) 1.6, Monocytes # (Auto) 1.2H, Eosinophils # (Auto) 1.4H, Basophils # (Auto) 0.1, Immature Granulocyte # (Auto) 0.1, Sodium Level 134L, Potassium Level 4.6, Chloride Level 98, Carbon Dioxide Level 30, Anion Gap 6, Blood Urea Nitrogen 12, Creatinine 0.74, Estimat Glomerular Filtration Rate 81, BUN/Creatinine Ratio 16, Glucose Level 109H, Calcium Level 9.1, Corrected Calcium 10.1, Magnesium Level 2.2, Total Bilirubin 0.3, Aspartate Amino Transf (AST/SGOT) 22, Alanine Aminotransferase (ALT/SGPT) 23, Alkaline Phosphatase 88, Total Protein 7.1, Albumin 2.7L Microbiology 10/18/20 Urine Culture - Final, Complete Escherichia coli 10/18/20 Blood Culture - Preliminary, Resulted No growth Home Meds Active Potassium Chloride 10 Meq Tab.er.prt 10 Meq PO DAILY Lasix (Furosemide) 20 Mg Tablet 20 Mg PO DAILY Children's Aspirin (Aspirin) 81 Mg Tab.chew 81 Mg PO DAILY Atorvastatin Calcium 20 Mg Tablet 20 Mg PO HS Xarelto Tablet (Rivaroxaban) 20 Mg Tablet 20 Mg PO DAILY@1700 start taking 20mg daily after completing 6 days of 15mg BID dosing Xarelto Tablet (Rivaroxaban) 15 Mg Tablet 15 Mg PO BID WITH MEALS Nicoderm Cq (Nicotine) 1 Each Patch.td24 14 Mg TD DAILY@0900 Cephalexin 250 Mg Capsule 250 Mg PO QID Reported Tylenol Extra Strength (Acetaminophen) 500 Mg Tablet 500-1,000 Mg PO Q8H PRN Xarelto Starter Pack (Rivaroxaban) 1 Each Tab.ds.pk 1 Each PO UD 15 MG TWICE DAILY X 21 DAYS, THEN 20MG DAILY THEREAFTER CURRENTLY TAKING 15MG TWICE DAILY Albuterol Sulfate 2.5 Mg/0.5 Ml Vial.neb 2.5 Mg INH Q4- 6H PRN Symbicort 160-4.5 Mcg Inhaler (Budesonide/Formoterol Fumarate) 10.2 Gm Hfa.aer.ad 2 Puff IH BID Gabapentin 600 Mg Tablet 600 Mg PO BID Lamictal (Lamotrigine) 25 Mg Tablet 25 Mg PO BID Assessment/Pt Instructions PCP in 1 week Discharge Planning: <30 minutes discharge planning Discharge Physical Examination Vital Signs Vital Signs Date Time Temp Pulse Resp B/P (MAP) Pulse Ox O2 Delivery O2 Flow Rate FiO2 10/23/20 08:00 36.2 101 24 109/79 (89) 97 Nasal Cannula 3.50 10/18/20 12:30 99 General Appearance: No Apparent Distress, WD/WN, Chronically ill Respiratory: Lungs Clear Cardiovascular: Regular Rate, Rhythm Neurologic/Psychiatric: Alert, Oriented x3, Depressed Affect Allergies: Coded Allergies: No Known Drug Allergies (Unverified , 03/01/19) Discharge Summary Date of Admission Oct 18, 2020 at 07:18 Date of Discharge Discharge Date: Oct 23, 2020 Admission Diagnosis Urinary tract infection Discharge Diagnosis Sepsis treatment successful Appreciate cardiology PT and OT Discontinue catheter (1) Acute on chronic respiratory failure with hypoxia Status: Acute (2) Acute on chronic heart failure with preserved ejection fraction (HFpEF) Status: Acute (3) NSTEMI (non-ST elevated myocardial infarction) Status: Acute (4) Aortic stenosis Status: Acute (5) UTI (urinary tract infection) Status: Acute Qualifiers: Qualified Codes: N30.00 - Acute cystitis without hematuria (6) Pulmonary embolism Status: Acute (7) Post-COVID syndrome Status: Chronic ADAM ALSTON DO Oct 23, 2020 10:47
--- NOTE | 2020-10-23 10:49 | Progress Note ---
[employer] MED STUDENT 10/23/20 1049: Progress Note Hospital Course: Porsche López is a 60 year old white female who presented to the ED on September, via EMS with complaints of extreme weakness, SOB, cough, and hypotension. She had been diagnosed with COVID-19 PNA about a month prior and had been hospitalized at that time and had developed bilateral PE's. She was discharged from the hospital on October 13 to home and was taking xarelto and sent with home oxygen. PMH is significant for tobacco use, HTN, NSTEMI, recent bilateral PE's related to COVID-19, COPD, Aortic stenosis, systolic and diastolic HF, Bipolar disorder, ascending aortic aneurysm, infrarenal abdominal aneurysm, and heat stroke. She was ultimately admitted and diagnosed with NSTEMI, UTI/Sepsis, Post covid-19 syndrome, recent bilateral PE's, and acute on chronic hypoxic respiratory failure. During her stay she has remained on oxygen via [place] at 3-4 L and sat's have been mid to upper 90's. She still complains of mild SOB at rest, which worsens with repositioning and ambulation or transfers to bedside commode. She had a repeat CT angio of chest on October 22, 2020 which demonstrated bilateral segmental and subsegmental PE's, however, the clot burden has decreased as compared to her prior CT angio of chest [address] also demonstrated continued bilateral ground glass infiltrates suggestive of recent COVID-19 PNA. She wore BIPAP and tolerated well overnight for 5-6 hours last night, stating that she felt she could breathe easier and was able to sleep well. She is tolerating po intake ok, appetite is somewhat diminished. The carson was removed on October 22 and she continues to be treated with keflex for the UTI. Plan is to complete a home O2 evaluation today and get her discharged to home today. She reports feeling ready to go home and is back at her baseline functional level post COVID. She reports she has several family members who can assist her at home as needed, although she does not have a vehicle. CHANTAL ALSTON DO 10/24/20 0523: Supervisory-Addendum Brief Verification & Attestation Participated in pt care: history, MDM, physical Personally performed: exam, history, MDM, supervision of care Care discussed with: Medical Student Procedures: n/a Results interpretation: Verified all documentation Verification and Attestation of Medical Student E/M Service A medical student performed and documented this service in my presence. I reviewed and verified all information documented by the medical student and made modifications to such information, when appropriate. I personally performed the physical exam and medical decision making. Chantal Alston, Oct 24, 2020,05:23 CIERRA ESP[employer] MED STUDENT Oct 23, 2020 10:49 CHANTAL ALSTON DO Oct 24, 2020 05:23
--- NOTE | 2020-10-23 11:08 | Progress Note - Cardiology ---
Cardiology SOAP Progress Note Subjective: Sitting up in bed States she is feeling much better today No c/o CP Feels SOB is improving Objective: I&O/Vital Signs 10/23/20 10/23/20 10/23/20 10/23/20 00:00 02:18 04:24 06:40 Temp 36.4 36.6 Pulse 106 74 101 100 Resp 30 29 30 B/P (MAP) 106/69 (81) 104/70 (81) Pulse Ox 98 96 98 O2 Delivery NIV Bilevel Nasal Cannula O2 Flow Rate 40.00 40.00 3.50 10/23/20 10/23/20 10/23/20 07:29 08:00 08:00 Temp 36.2 Pulse 101 Resp 24 B/P (MAP) 109/79 (89) Pulse Ox 99 97 O2 Delivery Nasal Cannula Nasal Cannula Nasal Cannula O2 Flow Rate 3.00 4.00 3.50 10/23/20 00:00 Intake Total 720 ml Output Total 1000 ml Balance -280 ml Constitutional: AAO x 3, well-developed, well-nourished Respiratory: No accessory muscle use; other (fair, bilateral air entry; prolonged exp; somewhat diminished bs at bases) Cardiovascular: regular rate-rhythm, S1 and S2, systolic murmur (3/6 MSM) Gastrointestional: No tender; soft; No guarding, No rebound; audible bowel sounds Extremities: No clubbing, No cyanosis, No significant edema Neurologic/Psychiatric: oriented x 3, other (moves all limbs equally) Skin: normal color, warm/dry; No rash on exposed areas, No ulcerations on exposed areas Results/Procedures: Labs Laboratory Tests 10/22/20 13:30: D-Dimer 4.54H 10/22/20 13:40: Blood Gas Puncture Site LEFT RADIAL, Blood Gas Patient Temperature 35.6, Arterial Blood pH 7.44H, Arterial Blood Partial Pressure CO2 47H, Arterial Blood Partial Pressure O2 76L, Arterial Blood HCO3 32H, Arterial Blood Total CO2 33.2H , Arterial Blood Oxygen Saturation 97, Arterial Blood Base Excess 7.2H, Enrrique Test POSITIVE, Blood Gas Ventilator Setting NO, Blood Gas Inspired Oxygen 3 L 10/23/20 05:25: White Blood Count 12.8H, Red Blood Count 3.13L, Hemoglobin 8.8L, Hematocrit 29L, Mean Corpuscular Volume 93, Mean Corpuscular Hemoglobin 28, Mean Corpuscular Hemoglobin Concent 30L, Red Cell Distribution Width 14.5, Platelet Count 469H, Mean Platelet Volume 10.6, Immature Granulocyte % (Auto) 1, Neutrophils (%) (Auto) 66, Lymphocytes (%) (Auto) 12, Monocytes (%) (Auto) 9, Eosinophils (%) (Auto) 11H, Basophils (%) (Auto) 1, Neutrophils # (Auto) 8.5H, Lymphocytes # (Auto) 1.6, Monocytes # (Auto) 1.2H, Eosinophils # (Auto) 1.4H, Basophils # (Auto) 0.1, Immature Granulocyte # (Auto) 0.1, Sodium Level 134L, Potassium Level 4.6, Chloride Level 98, Carbon Dioxide Level 30, Anion Gap 6, Blood Urea Nitrogen 12, Creatinine 0.74, Estimat Glomerular Filtration Rate 81, BUN/Creatinine Ratio 16, Glucose Level 109H, Calcium Level 9.1, Corrected Calcium 10.1, Magnesium Level 2.2, Total Bilirubin 0.3, Aspartate Amino Transf (AST/SGOT) 22, Alanine Aminotransferase (ALT/SGPT) 23, Alkaline Phosphatase 88, Total Protein 7.1, Albumin 2.7L Microbiology 10/18/20 Urine Culture - Final, Complete Escherichia coli 10/18/20 Blood Culture - Preliminary, Resulted No growth Laboratory Tests 10/22/20 05:30 10/23/20 05:25 A/P: Assessment: Chest pain of undetermined etiology - ECG on 10/20/20 during chest pain: sinus with RBBB, not significantly changed from previous ECG Severe aortic stenosis - Echo of 10/11/20: AoV area 0.8 sq cm, mean gradient 40 mmHg Ac on ch systoic and diastolic CHF - Echo of 10/11/20: LVEF 40-45%, grade I diastolic dysfunction Mildly elevated troponin, probably related to ac on ch systoic and diastolic CHF (type II ME) Post-COVID syndrome and pulmonary embolism after COVID-19 in late August 2020 UTI Plan: * CHF appears clinically compensated. * Malaise and weakness are improving - up with PT * Changed diuretics to oral * Monitor labs * Continue anticoag * Replenish K * Pt advised to continue to refrain from smoking AUDELIA MCKEON Oct 23, 2020 11:08
[2020-10-23 12:00] VITALS: BP 103/71
[2020-10-23 15:00] VITALS: BP 103/71
[2020-10-24] MEDS ORDERED: FUROSEMIDE 20 MG (LASIX) TAB PO SCH (09:00)
[2020-11-04] MEDS ORDERED: RIVAROXABAN 20 MG TABLET (XARELTO) PO SCH (17:00)
== END 2020-10-23 15:00 | disposition home health service (06) | DRG 871 ==
LOC: EDUNIT# 04:36 → ER 04:38 → 4TH 07:18
PROVIDERS: ADMIT Family Medicine; ATTEND Internal Medicine
PROC: 5A09357 Assistance with Respiratory Ventilation, Less than 24 Consecutive Hours, Continuous Positive Airway Pressure (ICD-10-PCS; principal; 2020-10-23)
DX: A41.9 Sepsis, unspecified organism (principal); J96.21 Acute and chronic respiratory failure with hypoxia; I21.A1 Myocardial infarction type 2; I26.99 Other pulmonary embolism without acute cor pulmonale; I50.43 Acute on chronic combined systolic (congestive) and diastolic (congestive) heart failure; N39.0 Urinary tract infection, site not specified; I11.0 Hypertensive heart disease with heart failure; I35.0 Nonrheumatic aortic (valve) stenosis; I71.4 Abdominal aortic aneurysm, without rupture; F31.9 Bipolar disorder, unspecified; R65.20 Severe sepsis without septic shock; B96.20 Unspecified Escherichia coli [E. coli] as the cause of diseases classified elsewhere; B94.8 Sequelae of other specified infectious and parasitic diseases; Z87.891 Personal history of nicotine dependence
CPT/HCPCS: 36415; 71045; 71046; 71275; 80048; 80053; 81000; 82805; 83605; 83735; 83880; 84145; 84484; 85007; 85025; 85027; 85379; 85610; 85730; 86141; 87040; 87077; 87088; 87186; 93005; 94640; 94660; 94664; 94760; 94761; 96361; 96374

== ENCOUNTER → 2021-01-15 | Outpatient (CLI) | payer SELFPAY ==
[~2021-01-15] MED LIST changes: +ACET-2267 PO; +ALB0.5V INH; +ASPI81TA64 PO; +ATOR20TA66 PO; +CATHETER FLUSH 10 ML SYR IV PRN; +CEPH250C PO; +FURO-125 PO; +HOLD METFORMIN - RECEIVED CONTRAST 20 ML VIAL IV SCH; +IOHEXOL 350 MG/ML 100 ML (OMNIPAQUE 350) VIAL IV ONE; +NICO1PAT38 TD; +NS 100 ML (IVPB) BAG IV ONE; +POTA10TA36 PO; +RIVA15TA2 PO; +RIVA20TA2 PO; +RT-ALBUTEROL SULF 2.5 MG/3 ML PRE-MIX VIAL INH ONE
[2021-01-15 09:18] LABS: CREATININE SERUM 1.04 MG/DL (0.60-1.30)
--- NOTE | 2021-01-15 11:23 | Diagnostic Imaging Report ---
PROCEDURE: CT chest with contrast only. TECHNIQUE: Multiple contiguous axial images were obtained through the chest after administration of intravenous contrast. Auto Exposure Controls were utilized during the CT exam to meet ALARA standards for radiation dose reduction. INDICATION: Abnormal findings, prior pneumonia and pulmonary emboli COMPARISON: 10/22/2020 FINDINGS: 1.6 cm nodule within the right thyroid lobe. No significant adenopathy within the chest. Aneurysmal dilatation of the ascending thoracic aorta is again identified. This measures up to 4.3 cm. The sinotubular junction measures 3.4 cm in transverse dimension. The level of the sinus of Valsalva measures 3.4 cm. The aortic arch measures up to 2.5 cm. The distal descending thoracic aorta measures 2.2 cm. The heart is mildly enlarged. No significant pericardial effusion. No pleural effusion. The trachea is patent. No pneumothorax. Calcified granuloma within the left upper lobe. Very minimal reticular and groundglass opacities are identified within the lungs bilaterally, greatest within the peripheral location. These opacities have significantly improved though not completely resolved. No new focal pulmonary opacity or nodule. A 0.7 cm filling defect is noted within a right upper lobe bronchial, best seen on series 3, image 62. No definite filling defect within the central or segmental pulmonary arteries. Evaluation of subsegmental pulmonary arteries is slightly limited secondary to contrast bolus timing and of respiratory motion. Aneurysmal dilatation of the infrarenal abdominal aorta is partially visualized measuring up to 3.6 cm. Significant amount of noncalcified plaque is noted within the abdominal aorta. Bilateral medullary calcinosis. Bilateral renal cysts. No evidence of bowel obstruction within the [id number]. Mild scattered osseous degenerative changes without acute osseous abnormality. IMPRESSION: Significant interval improvement and near clearance of previously noted bilateral interstitial opacities related to improving though not completely resolved pneumonia. Minimal persisting opacities could relate to minimal persistent pneumonia versus developing mild interstitial lung disease/fibrosis. No significant pulmonary embolus within the limits of the exam. Stable aneurysmal dilatation of the ascending thoracic aorta with additional aneurysmal dilatation infrarenal abdominal aorta. Bilateral medullary calcinosis within the kidneys. 1.6 cm right thyroid nodule. Recommend a dedicated ultrasound of thyroid gland is not previously been evaluated. Additional findings as above. Dictated by: Dictated on workstation # [id number]
== END ==
LOC: RAD 09:45
PROVIDERS: ATTEND Nurse Practitioner Family
DX: R06.00 Dyspnea, unspecified (principal); R91.8 Other nonspecific abnormal finding of lung field; J18.9 Pneumonia, unspecified organism; I77.810 Thoracic aortic ectasia; N28.89 Other specified disorders of kidney and ureter; E04.1 Nontoxic single thyroid nodule; I28.1 Aneurysm of pulmonary artery; M19.90 Unspecified osteoarthritis, unspecified site
CPT/HCPCS: 36415; 71260; 82565; 84520; 94060; 94729

== ENCOUNTER 2021-09-13 13:54 | Emergency (ER) | payer SELFPAY ==
[~2021-09-13] VITALS: Ht 162.5 cm; Wt 68.0 kg
[~2021-09-13 13:54] MED LIST changes: -CATHETER FLUSH 10 ML SYR IV PRN; -HOLD METFORMIN - RECEIVED CONTRAST 20 ML VIAL IV SCH; -IOHEXOL 350 MG/ML 100 ML (OMNIPAQUE 350) VIAL IV ONE; -NS 100 ML (IVPB) BAG IV ONE; -POTA10TA36 PO; +POTA10TA37 PO; -RT-ALBUTEROL SULF 2.5 MG/3 ML PRE-MIX VIAL INH ONE
[2021-09-13 13:55] VITALS: BP 127/81
--- NOTE | 2021-09-13 14:16 | ED Lower Extremity ---
General Stated Complaint: R KNEE PAIN Source: patient Exam Limitations: no limitations History of Present Illness Date Seen by Provider: Sep 13, 2021 Time Seen by Provider: 14:14 Initial Comments Patient is a 61-year-old female who presents the ED with pain to the right knee with bruising. She states yesterday she tripped hitting a plastic toy. She had some pain and discomfort with bruising to the anterior part of the knee. Normal active range of motion. She denies of any significant pain with walking. Patient is requesting help for methamphetamine use. Last use was 2 days ago. She scheduled follow-up with her primary care physician on the . No evidence of hallucinations. Denies any chest pain, shortness of breath, nausea, vomiting, diarrhea, headache. Denies of any other drug use. Allergies and Home Medications Allergies Coded Allergies: No Known Drug Allergies (Unverified , 03/01/19) Patient Home Medication List Home Medication List Reviewed: Yes Acetaminophen (Tylenol Extra Strength) 500 Mg Tablet, 500-1,000 MG PO Q8H PRN for PAIN-MILD (1-4), (Reported) Entered as Reported by: MORTEZA CUEVA on 10/18/20 1138 Albuterol Sulfate (Albuterol Sulfate) 2.5 Mg/0.5 Ml Vial.neb, 2.5 MG INH Q4- 6H PRN for SHORTNESS OF BREATH, (Reported) Entered as Reported by: MORTEZA CUEVA on 10/18/20 1137 Aspirin (Children's Aspirin) 81 Mg Tab.chew, 81 MG PO DAILY Prescribed by: ADAM ALSTON on 10/23/20 1046 Atorvastatin Calcium (Atorvastatin Calcium) 20 Mg Tablet, 20 MG PO HS Prescribed by: ADAM ALSTON on 10/23/20 1046 Budesonide/Formoterol Fumarate (Symbicort 160-4.5 Mcg Inhaler) 10.2 Gm Hfa.aer.ad, 2 PUFF IH BID, (Reported) Entered as Reported by: CINDY POWERS on 10/11/20 1539 Cephalexin (Cephalexin) 250 Mg Capsule, 250 MG PO QID Prescribed by: ADAM ALSTON on 10/23/20 1046 Furosemide (Lasix) 20 Mg Tablet, 20 MG PO DAILY Prescribed by: ADAM ALSTON on 10/23/20 1046 Gabapentin (Gabapentin) 600 Mg Tablet, 600 MG PO BID, (Reported) Entered as Reported by: CINDY POWERS on 10/11/201538 Lamotrigine (Lamictal) 25 Mg Tablet, 25 MG PO BID, (Reported) Entered as Reported by: CINDY POWERS on 10/11/201538 Nicotine (Nicoderm Cq) 1 Each Patch.td24, 14 MG TD DAILY@0900 Prescribed by: ADAM ALSTON on 10/23/20 104 Potassium Chloride (Potassium Chloride) 10 Meq Tab.er.prt, 10 MEQ PO DAILY Prescribed by: ADAM ALSTON on 10/23/20 104 Rivaroxaban (Xarelto Tablet) 15 Mg Tablet, 15 MG PO BID WITH MEALS Prescribed by: ADAM ALSTON on 10/23/20 104 Rivaroxaban (Xarelto Tablet) 20 Mg Tablet, 20 MG PO DAILY@1700 Prescribed by: ADAM ALSTON on 10/23/20 1046 Review of Systems Constitutional: No chills, No diaphoresis, No fever, No malaise, No weakness EENTM: No blurred vision, No double vision, No hoarseness, No mouth pain, No mouth swelling Respiratory: No cough, No dyspnea on exertion Cardiovascular: No chest pain, No edema Gastrointestinal: No abdominal pain, No diarrhea, No nausea Genitourinary: No decreased output, No discharge Musculoskeletal: No back pain; joint pain, joint swelling Skin: change in color; No change in hair/nails Psychiatric/Neurological: Denies Anxiety All Other Systems Reviewed Negative Unless Noted: Yes Past Nxrzezo-Ecmtus-Wwxlpe Hx Immunizations Up To Date PED Vaccines UTD: Yes Seasonal Allergies Seasonal Allergies: No Past Medical History Surgeries: No Respiratory: No Pulmonary Embolism Cardiac: Yes Heart Attack, Hypertension Neurological: Yes (heat stroke) Genitourinary: No Ulcer Musculoskeletal: No Endocrine: No HEENT: No Cancer: No Psychosocial: No Integumentary: No Family Medical History No Pertinent Family Hx Physical Exam Vital Signs Capillary Refill : Height, Weight, BMI Height: '" Weight: lbs. oz. kg; 25.71 BMI Method: General Appearance: WD/WN, no apparent distress HEENT: PERRL/EOMI, normal ENT inspection, TMs normal, pharynx normal Neck: non-tender, full range of motion, supple, normal inspection Cardiovascular: regular rate, rhythm, no edema, no gallop, no JVD Respiratory: chest non-tender, lungs clear, normal breath sounds, no respiratory distress, no accessory muscle use Gastrointestinal: normal bowel sounds, non tender, soft, no organomegaly Back: normal inspection, no CVA tenderness Knees: right knee normal range of motion, right knee ecchymosis, right knee soft tissue tenderness, right knee swelling Ankles: bilateral ankle non-tender, bilateral ankle normal inspection, bilateral ankle normal range of motion Feet: bilateral foot non-tender, bilateral foot normal inspection, bilateral foot normal range of motion Neurologic/Psychiatric: 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 No severe tenderness on palpation but does have some tenderness to the medial compartment. Refused x-ray of the right knee. Negative anterior and posterior drawer test. No pain with valgus or varus stress. Patient refused x-ray. No evidence suggesting DVT. No posterior thigh or calf tenderness. Patient then discussed that she wants detox for methamphetamine use. Last used 2 days ago. She has no other complaints. No active hallucinations. Patient was given outpatient resources such as [facility] for detox. She has no suicidal homicidal thoughts. She agrees with this plan at this time. If any worsening symptoms return back to ED. If worsening right knee pain recommend getting a x-ray. She is able to stand and bear weight. Refused x-ray Impression Primary Impression: Knee pain Disposition: 01 HOME, SELF-CARE Condition: Stable Departure-Patient Inst. Decision time for Depature: 14:16 Referrals: [facility],LOCAL PHYSICIAN (PCP) Primary Care Physician Patient Instructions: Knee Pain Add. Discharge Instructions: Recommend following up with [facility] for further evaluation for methamphetamine detox. If wanting inpatient may consider follow-up with [facility] for detox ALBERT SLADE Sep 13, 2021 14:16
== END 2021-09-13 14:26 | disposition home or self-care (01) ==
LOC: EDUNIT# 13:54 → ER 13:55
DX: S80.01XA Contusion of right knee, initial encounter (principal); Z28.310 Unvaccinated for COVID-19; W18.40XA Slipping, tripping and stumbling without falling, unspecified, initial encounter; W22.8XXA Striking against or struck by other objects, initial encounter
CPT/HCPCS: 99281

== ENCOUNTER 2021-11-08 20:27 | Inpatient (IN) | payer SELFPAY ==
[~2021-11-08] VITALS: Ht 162 cm; Wt 72.6 kg
[~2021-11-08 20:27] MED LIST changes: +POTA-177 PO; -POTA10TA37 PO
--- NOTE | 2021-11-08 20:43 | ED Respiratory ---
General Chief Complaint: Respiratory Problems Stated Complaint: CHEST PAIN Nursing Triage Note: Pt presents with shortness of breath, unknown when it started. She reports doing meth approx 4 days ago and has had some episodes of chest pain. Tonight she denies chest pain, however she states she can not catch her breath. 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 Patient had meth 3 days ago and has not had any since then. Denies alcohol use. Denies fever, palpitations, dysuria, nausea and vomiting, abdominal pain, diarrhea, lightheadedness or dizziness. Allergies and Home Medications Allergies Coded Allergies: No Known Drug Allergies (Unverified , 03/01/19) Patient Home Medication List Home Medication List Reviewed: Yes Acetaminophen (Tylenol Extra Strength) 500 Mg Tablet, 500-1,000 MG PO Q8H PRN for PAIN-MILD (1-4), (Reported) Entered as Reported by: MORTEZA CUEVA on 10/18/20 1138 Albuterol Sulfate (Albuterol Sulfate) 2.5 Mg/0.5 Ml Vial.neb, 2.5 MG INH Q4- 6H PRN for SHORTNESS OF BREATH, (Reported) Entered as Reported by: MORTEZA CUEVA on 10/18/20 1137 Aspirin (Children's Aspirin) 81 Mg Tab.chew, 81 MG PO DAILY Prescribed by: ADAM ALSTON on 10/23/20 1046 Atorvastatin Calcium (Atorvastatin Calcium) 20 Mg Tablet, 20 MG PO HS Prescribed by: ADAM ALSTON on 10/23/20 1046 Budesonide/Formoterol Fumarate (Symbicort 160-4.5 Mcg Inhaler) 10.2 Gm Hfa.aer.ad, 2 PUFF IH BID, (Reported) Entered as Reported by: CINDY POWERS on 10/11/20 1539 Cephalexin (Cephalexin) 250 Mg Capsule, 250 MG PO QID Prescribed by: ADAM ALSTON on 10/23/20 1046 Furosemide (Lasix) 20 Mg Tablet, 20 MG PO DAILY Prescribed by: ADAM ALSTON on 10/23/20 1046 Gabapentin (Gabapentin) 600 Mg Tablet, 600 MG PO BID, (Reported) Entered as Reported by: CINDY POWERS on 10/11/20 153 Lamotrigine (Lamictal) 25 Mg Tablet, 25 MG PO BID, (Reported) Entered as Reported by: CINDY POWERS on 10/11/201538 Nicotine (Nicoderm Cq) 1 Each Patch.td24, 14 MG TD DAILY@0900 Prescribed by: ADAM ALSTON on 10/23/20 104 Potassium Chloride (Potassium Chloride) 10 Meq Tab.er.prt, 10 MEQ PO DAILY Prescribed by: ADAM ALSTON on 10/23/20 104 Rivaroxaban (Xarelto Tablet) 15 Mg Tablet, 15 MG PO BID WITH MEALS Prescribed by: ADAM ALSTON on 10/23/20 104 Rivaroxaban (Xarelto Tablet) 20 Mg Tablet, 20 MG PO DAILY@1700 Prescribed by: ADAM ALSTON on 10/23/20 1046 Review of Systems Review of Systems Constitutional: no symptoms reported EENTM: no symptoms reported Respiratory: short of breath Cardiovascular: chest pain Gastrointestinal: no symptoms reported Genitourinary: no symptoms reported Musculoskeletal: no symptoms reported Skin: no symptoms reported Psychiatric/Neurological: Emotional Problems Hematologic/Lymphatic: No Symptoms Reported Immunological/Allergic: no symptoms reported Past Thnvsnp-Jkycdt-Yillzs Hx Immunizations Up To Date PED Vaccines UTD: Yes First/Initial COVID19 Vaccinat: UNVACCINATED Second COVID19 Vaccination Fabian: UNVACCINATED Third COVID19 Vaccination Date: UNVACCINATED Seasonal Allergies Seasonal Allergies: No Past Medical History Surgeries: No Respiratory: No Pulmonary Embolism Cardiac: Yes Heart Attack, Hypertension Neurological: Yes (heat stroke) Genitourinary: No Ulcer Musculoskeletal: No Endocrine: No HEENT: No Cancer: No Psychosocial: No Integumentary: No Family Medical History No Pertinent Family Hx Physical Exam Vital Signs - First Documented 11/08/21 11/08/21 20:30 23:51 Temp 35.6 Pulse 95 Resp 20 B/P (MAP) 133/98 (110) Pulse Ox 100 O2 Delivery Nasal Cannula O2 Flow Rate 2.00 Capillary Refill : Less Than 3 Seconds Height: '" Weight: lbs. oz. kg; 28.00 BMI Method: General Appearance: WD/WN, no apparent distress HEENT: PERRL/EOMI, normal ENT inspection Neck: non-tender, full range of motion, supple, normal inspection Respiratory: chest non-tender, lungs clear, normal breath sounds, no respiratory distress, no accessory muscle use Cardiovascular: regular rate, rhythm, no edema Gastrointestinal: normal bowel sounds, non tender, soft, no organomegaly Extremities: normal range of motion Neurologic/Psychiatric: no motor/sensory deficits, alert, normal mood/affect, oriented x 3 Skin: normal color Progress/Results/Core Measures Suspected Sepsis SIRS Temperature: Pulse: 95 Respiratory Rate: 20 Laboratory Tests 11/08/21 21:00: White Blood Count 8.2 Blood Pressure 133 /98 Mean: 110 Laboratory Tests 11/08/21 21:00: Creatinine 0.90, INR Comment 0.9, Platelet Count 259, Total Bilirubin 0.4 Results/Orders Lab Results Laboratory Tests Test 11/08/21 21:00 11/08/21 22:00 11/08/21 22:31 11/09/21 00:40 Range/Units White Blood Count 8.2 4.3-11.0 10^3/uL Red Blood Count 4.60 3.80-5.11 10^6/uL Hemoglobin 13.4 11.5-16.0 g/dL Hematocrit 42 35-52 % Mean Corpuscular Volume 90 80-99 fL Mean Corpuscular Hemoglobin 29 25-34 pg Mean Corpuscular Hemoglobin Concent 32 32-36 g/dL Red Cell Distribution Width 13.3 10.0-14.5 % Platelet Count 259 130-400 10^3/uL Mean Platelet Volume 11.1 9.0-12.2 fL Immature Granulocyte % (Auto) 0 % Neutrophils (%) (Auto) 66 42-75 % Lymphocytes (%) (Auto) 23 12-44 % Monocytes (%) (Auto) 8 0-12 % Eosinophils (%) (Auto) 3 0-10 % Basophils (%) (Auto) 1 0-10 % Neutrophils # (Auto) 5.4 1.8-7.8 10^3/uL Lymphocytes # (Auto) 1.9 1.0-4.0 10^3/uL Monocytes # (Auto) 0.7 0.0-1.0 10^3/uL Eosinophils # (Auto) 0.2 0.0-0.3 10^3/uL Basophils # (Auto) 0.0 0.0-0.1 10^3/uL Immature Granulocyte # (Auto) 0.0 0.0-0.1 10^3/uL Prothrombin Time 12.6 12.2-14.7 SEC INR Comment 0.9 0.8-1.4 Activated Partial Thromboplast Time 28 24-35 SEC D-Dimer 1.23 H 0.00-0.49 UG/ML Sodium Level 141 135-145 MMOL/L Potassium Level 3.8 3.6-5.0 MMOL/L Chloride Level 106 98-107 MMOL/L Carbon Dioxide Level 23 21-32 MMOL/L Anion Gap 12 5-14 MMOL/L Blood Urea Nitrogen 12 7-18 MG/DL Creatinine 0.90 0.60-1.30 MG/DL Estimat Glomerular Filtration Rate 74 BUN/Creatinine Ratio 13 Glucose Level 96 70-105 MG/DL Calcium Level 9.4 8.5-10.1 MG/DL Corrected Calcium 9.6 8.5-10.1 MG/DL Magnesium Level 1.9 1.6-2.4 MG/DL Total Bilirubin 0.4 0.1-1.0 MG/DL Aspartate Amino Transf (AST/SGOT) 16 5-34 U/L Alanine Aminotransferase (ALT/SGPT) 13 0-55 U/L Alkaline Phosphatase 83 40-136 U/L Troponin I 0.057 H 0.074 H <0.028 NG/ML B-Type Natriuretic Peptide 1887.6 H <100.0 PG/ML Total Protein 7.3 6.4-8.2 GM/DL Albumin 3.8 3.2-4.5 GM/DL Salicylates Level < 5.0 L 5.0-20.0 MG/DL Acetaminophen Level < 10 L 10-30 UG/ML Serum Alcohol < 10 <10 MG/DL Influenza Type A (RT-PCR) Not Detected Not Detecte Influenza Type B (RT-PCR) Not Detected Not Detecte SARS-CoV-2 RNA (RT-PCR) Not Detected Not Detecte Urine Color YELLOW Urine Clarity CLEAR Urine pH 6.0 5-9 Urine Specific [place] 1.025 H 1.016-1.022 Urine Protein NEGATIVE NEGATIVE Urine Glucose (UA) NEGATIVE NEGATIVE Urine Ketones NEGATIVE NEGATIVE Urine Nitrite NEGATIVE NEGATIVE Urine Bilirubin NEGATIVE NEGATIVE Urine Urobilinogen 0.2 < = 1.0 MG/DL Urine Leukocyte Esterase NEGATIVE NEGATIVE Urine RBC (Auto) NEGATIVE NEGATIVE Urine RBC NONE /HPF Urine WBC NONE /HPF Urine Squamous Epithelial Cells 0-2 /HPF Urine Crystals NONE /LPF Urine Bacteria NEGATIVE /HPF Urine Casts NONE /LPF Urine Mucus NEGATIVE /LPF Urine Culture Indicated NO Urine Opiates Screen NEGATIVE NEGATIVE Urine Oxycodone Screen NEGATIVE NEGATIVE Urine Methadone Screen NEGATIVE NEGATIVE Urine Propoxyphene Screen NEGATIVE NEGATIVE Urine Barbiturates Screen NEGATIVE NEGATIVE Ur Tricyclic Antidepressants Screen NEGATIVE NEGATIVE Urine Phencyclidine Screen NEGATIVE NEGATIVE Urine Amphetamines Screen POSITIVE H NEGATIVE Urine Methamphetamines Screen POSITIVE H NEGATIVE Urine Benzodiazepines Screen NEGATIVE NEGATIVE Urine Cocaine Screen NEGATIVE NEGATIVE Urine Cannabinoids Screen NEGATIVE NEGATIVE My Orders Orders - KIKA JETER MD Ekg-Prn For Chest Pain Or Rhyt (11/08/21 20:31) Chest 1 View, Ap/Pa Only (11/08/21 20:39) Acetaminophen (11/08/21 20:39) Alcohol (11/08/21 20:39) Bnp Carol (11/08/21 20:39) Cbc With Automated Diff (11/08/21 20:39) Comprehensive Metabolic Panel (11/08/21 20:39) Fibrin Degradation Products (11/08/21 20:39) Drug Screen Stat (Urine) (11/08/21 20:39) Magnesium (11/08/21 20:39) Protime With Inr (11/08/21 20:39) Partial Thromboplastin Time (11/08/21 20:39) Salicylate (11/08/21 20:39) Ua Culture If Indicated (11/08/21 20:39) Troponin I Carol (11/08/21 20:39) Albuterol/Ipra Inhalation Soln (Duoneb I (11/08/21 21:45) Methylprednisolone Sod Succ (Solu-Medrol (11/08/21 21:31) Svn Small Volume Nebulizer (11/08/21 21:31) Aspirin Chewable Tablet (Baby Aspirin Ch (11/08/21 21:45) Covid 19 Inhouse Test (11/08/21 21:41) Influenza A And B By Pcr (11/08/21 21:41) Troponin I Braxton (11/08/21 22:48) Ekg Tracing (11/08/21 22:48) Aspirin Chewable Tablet (Baby Aspirin Ch (11/08/21 23:00) Ct Angio Chest W (11/09/21 00:01) Iohexol Injection (Omnipaque 350 Mg/Ml 1 (11/09/21 01:45) Received Contrast (Hold Metformin- Contr (11/09/21 01:45) Ns (Ivpb) (Sodium Chloride 0.9% Ivpb Bag (11/09/21 01:45) Enoxaparin Injection (Lovenox Injection) (11/09/21 01:45) Medications Given in ED Current Medications Medications Dose Ordered Sig/Carmelo Route Start Time Stop Time Status Last Admin Dose Admin Albuterol/ Ipratropium 3 ml ONCE ONCE INH 11/08/21 21:45 11/08/21 21:57 DC 11/08/21 23:51 3 ML Aspirin 324 mg ONCE ONCE PO 11/08/21 21:45 11/08/21 21:57 DC 11/08/21 22:10 324 MG Iohexol 100 ml ONCE ONCE IV 11/09/21 01:45 11/09/21 01:49 DC 11/09/21 01:47 67 ML Sodium Chloride 100 ml ONCE ONCE IV 11/09/21 01:45 11/09/21 01:49 DC 11/09/21 01:47 80 ML Vital Signs/I&O 11/08/21 11/08/21 20:30 23:51 Temp 35.6 Pulse 95 Resp 20 B/P (MAP) 133/98 (110) Pulse Ox 100 O2 Delivery Nasal Cannula O2 Flow Rate 2.00 Capillary Refill : Less Than 3 Seconds Blood Pressure Mean: 110 Progress Note : Progress Note 1. ACS RULE OUT: NSTEMI - CXR:unremarkable - Troponin x 2: elevated - EKG x 2: non-ischemic - CBC normal - BNP is 1887, but pt is not clinically fluid overloaded, and CXR is non-acute - Labs - ASA 324mg STAT - Discussed with Cardiology consult and will admit to hospitalist and start pt on Lovenox 1mg/ kg - Accepted for admission by hospitalist 2. COPD: - Duo neb - Solumedrol 125mg iv 3. METH ADDICTION: - Last use: 3 days ago - UDS/ UA: positive for methamphetamines 4. THROMBOSED AAA: - CTA ABDOMEN: see report ( 4.1cm x 4.1cm diameter, increased from 2020) - Discussed with Dr Gaalviz, cardiovascular surgeon at [facility], and advised clinic follow up, since AA is not yet 5cm Diagnostic Imaging Diagonstic Imaging: Xray Plain Films/CT/US/NM/MRI: chest Comments [facility] [place], [place] NAME: [facility] REC#: [id number] PT STATUS: REG ER : 1960 PHYSICIAN: KIKA JETER MD ADMIT DATE: 11/08/21/ER Draft Date of Exam:11/08/21 CHEST 1 VIEW, AP/PA ONLY INDICATION: Shortness of breath. EXAMINATION: Frontal chest was obtained at 9:00 p.m. COMPARISON: 10/20/2020. There is cardiomegaly. Aorta is tortuous and/or ectatic. There is no focal infiltrate or pneumothorax or pleural fluid. Compared to 10/20/2020, the diffuse bilateral infiltrates are much improved and essentially resolved. IMPRESSION: Cardiomegaly. No focal infiltrate or pleural fluid. Resolution of extensive infiltrates seen on 10/20/2020. Dictated on workstation # [id number] Dict: 11/08/212120 Trans: 11/08/212128 LOCATED WITHIN [facility] [phone] Interpreted by: CRYS ARENAS MD Electronically signed by: Departure Communication (Admissions) Time/Spoke to Admitting Phy: 01:30 Dr Brody Time/Spoke to Consulting Phy: 01:15 Dr Vinson, cardiology Impression Primary Impression: NSTEMI (non-ST elevated myocardial infarction) Additional Impressions: COPD exacerbation Methamphetamine addiction Withdrawal from recreational drug Disposition: 30 STILL A PATIENT Condition: Stable Admissions Decision to Admit Reason: Admit from ER (General) Decision to Admit/Date: Nov 09, 2021 Time/Decision to Admit Time: 00:00 Departure-Patient Inst. Referrals: NO,LOCAL PHYSICIAN (PCP/Family) Primary Care Physician KIKA JETER MD Nov 08, 2021 20:43
[2021-11-08 21:19] LABS: BASOPHILS % (AUTO) 1 % (0-10); EOSINOPHILS # (AUTO) 0.2 10^3/uL (0.0-0.3); EOSINOPHILS % (AUTO) 3 % (0-10); HEMATOCRIT 42 % (35-52); HEMOGLOBIN 13.4 g/dL (11.5-16.0); LYMPHOCYTES # (AUTO) 1.9 10^3/uL (1.0-4.0); LYMPHOCYTES % (AUTO) 23 % (12-44); MEAN CORPUSCULAR HEMOGLOBIN 29 pg (25-34); MEAN CORPUSCULAR HGB CONC 32 g/dL (32-36); MEAN CORPUSCULAR VOLUME 90 fL (80-99); MEAN PLATELET VOLUME 11.1 fL (9.0-12.2); MONOCYTES # (AUTO) 0.7 10^3/uL (0.0-1.0); MONOCYTES % (AUTO) 8 % (0-12); NEUTROPHILS # (AUTO) 5.4 10^3/uL (1.8-7.8); NEUTROPHILS % (AUTO) 66 % (42-75); PLATELET COUNT 259 10^3/uL (130-400); WHITE BLOOD COUNT 8.2 10^3/uL (4.3-11.0)
--- NOTE | 2021-11-08 21:29 | Diagnostic Imaging Report ---
INDICATION: Shortness of breath. EXAMINATION: Frontal chest was obtained at 9:00 p.m. COMPARISON: 10/20/2020. There is cardiomegaly. Aorta is tortuous and/or ectatic. There is no focal infiltrate or pneumothorax or pleural fluid. Compared to 10/20/2020, the diffuse bilateral infiltrates are much improved and essentially resolved. IMPRESSION: Cardiomegaly. No focal infiltrate or pleural fluid. Resolution of extensive infiltrates seen on 10/20/2020. Dictated by: Dictated on workstation # [id number]
[2021-11-08] MEDS ORDERED: methylPREDNISolone 125 MG (Solu-MEDROL) VIAL IV STA (21:31)
[2021-11-08 21:37] LABS: FIBRIN DEGRADATION PRODUCTS 1.23 UG/ML (0.00-0.49); INR 0.9 (0.8-1.4); PROTHROMBIN TIME PATIENT 12.6 SEC (12.2-14.7)
[2021-11-08 21:43] LABS: ALANINE AMINOTRANSFERASE 13 U/L (0-55); ALBUMIN 3.8 GM/DL (3.2-4.5); ALKALINE PHOSPHATASE 83 U/L (40-136); BILIRUBIN,TOTAL 0.4 MG/DL (0.1-1.0); BUN/CREATININE RATIO 13; CALCIUM 9.4 MG/DL (8.5-10.1); CARBON DIOXIDE 23 MMOL/L (21-32); CHLORIDE 106 MMOL/L (98-107); GFR ESTIMATED 74; GLUCOSE 96 MG/DL (70-105); MAGNESIUM 1.9 MG/DL (1.6-2.4); POTASSIUM 3.8 MMOL/L (3.6-5.0); SALICYLATE < 5.0 MG/DL (5.0-20.0); SODIUM 141 MMOL/L (135-145); TOTAL PROTEIN 7.3 GM/DL (6.4-8.2)
[2021-11-08] MEDS ORDERED: ASPIRIN 81 MG CHEW (CHILDREN'S ASA) PO ONE ×2 (21:45→23:00)
[2021-11-08] MEDS ORDERED: RT-ALBUTEROL/IPRATROPIUM 3 ML (DUONEB) VIAL INH ONE (21:45)
[2021-11-08 21:49] LABS: ACETAMINOPHEN < 10 UG/ML (10-30)
[2021-11-08 22:40] LABS: BILIRUBIN,URINE NEGATIVE (NEGATIVE); CLARITY,URINE CLEAR; COLOR,URINE YELLOW; GLUCOSE, URINE (UA) NEGATIVE (NEGATIVE); KETONES,URINE NEGATIVE (NEGATIVE); LEUKOCYTE ESTERASE ,URINE NEGATIVE (NEGATIVE); NITRITE,URINE NEGATIVE (NEGATIVE); PROTEIN,URINE NEGATIVE (NEGATIVE)
[2021-11-08 23:00] LABS: BACTERIA,URINE NEGATIVE /HPF; SQUAMOUS EPITHELIAL CELL,UR 0-2 /HPF
[2021-11-08 23:04] LABS: AMPHETAMINE SCREEN, URINE POSITIVE (NEGATIVE); BARBITURATE SCREEN URINE NEGATIVE (NEGATIVE); BENZODIAZEPINES SCREEN URINE NEGATIVE (NEGATIVE); CANNABINOID SCREEN, URINE NEGATIVE (NEGATIVE); COCAINE SCREEN URINE NEGATIVE (NEGATIVE); METHADONE STAT NEGATIVE (NEGATIVE); OPIATE SCREEN URINE NEGATIVE (NEGATIVE); OXYCODONE STAT NEGATIVE (NEGATIVE); PROPOXYPHENE STAT NEGATIVE (NEGATIVE); TRICYCLIC ANTIDEPRESSANTS SCRE NEGATIVE (NEGATIVE)
[2021-11-09] MEDS ORDERED: NS 100 ML (IVPB) BAG IV ONE (01:45)
[2021-11-09] MEDS ORDERED: ENOXAPARIN 80 MG/0.8 ML (LOVENOX) SYR SC ONE (01:45)
[2021-11-09] MEDS ORDERED: IOHEXOL 350 MG/ML 100 ML (OMNIPAQUE 350) VIAL IV ONE (01:45)
[2021-11-09] MEDS ORDERED: HOLD METFORMIN - RECEIVED CONTRAST 20 ML VIAL IV SCH (01:45)
[2021-11-09] MEDS ORDERED: hydrALAZINE (APESOLINE) 20 MG/ML VIAL IV ONE (02:15)
[2021-11-09 03:59] VITALS: BP 120/86
[2021-11-09 04:56] VITALS: BP 133/98
[2021-11-09] MEDS ORDERED: LORazepam 0.5 MG (ATIVAN) TABLET PO PRN (05:15)
[2021-11-09] MEDS ORDERED: ACETAMINOPHEN 325 MG TABLET PO PRN (05:15)
[2021-11-09] MEDS: CATHETER FLUSH 10 ML SYR IVP SCH ×3 (05:46→20:56)
[2021-11-09 06:24] LABS: BASOPHILS % (AUTO) 0 % (0-10); EOSINOPHILS % (AUTO) 0 % (0-10); HEMATOCRIT 45 % (35-52); HEMOGLOBIN 14.1 g/dL (11.5-16.0); LYMPHOCYTES # (AUTO) 0.6 10^3/uL (1.0-4.0); LYMPHOCYTES % (AUTO) 8 % (12-44); MEAN CORPUSCULAR HEMOGLOBIN 29 pg (25-34); MEAN CORPUSCULAR HGB CONC 32 g/dL (32-36); MEAN CORPUSCULAR VOLUME 91 fL (80-99); MEAN PLATELET VOLUME 11.3 fL (9.0-12.2); MONOCYTES # (AUTO) 0.1 10^3/uL (0.0-1.0); MONOCYTES % (AUTO) 1 % (0-12); NEUTROPHILS # (AUTO) 6.8 10^3/uL (1.8-7.8); NEUTROPHILS % (AUTO) 91 % (42-75); PLATELET COUNT 255 10^3/uL (130-400); WHITE BLOOD COUNT 7.5 10^3/uL (4.3-11.0)
[2021-11-09 06:36] LABS: POTASSIUM 4.3 MMOL/L (3.6-5.0)
[2021-11-09 06:38] LABS: CALCIUM 9.6 MG/DL (8.5-10.1)
--- NOTE | 2021-11-09 06:40 | Diagnostic Imaging Report ---
PROCEDURE: CT angiography of the chest with contrast. TECHNIQUE: Multiple contiguous axial images were obtained through the chest after uneventful bolus administration of intravenous contrast. 3D reconstructed CTA MIP acquisitions were also performed. Auto Exposure Controls were utilized during the CT exam to meet ALARA standards for radiation dose reduction. INDICATION: Chest pain and shortness of breath. Comparison is made with prior examination of 01/15/2021. FINDINGS: There is cardiomegaly. There is some left basilar atelectasis and/or pneumonitis. The ascending aorta measures 4.6 cm. There is no dissection. Evaluation for pulmonary embolism is somewhat limited due to suboptimal bolus timing. No obvious central or proximal pulmonary emboli are appreciated. There are coronary artery calcifications. There is no pleural or pericardial fluid. There is no pneumothorax. There is an infrarenal abdominal aortic aneurysm only partially imaged on this exam. This is partially thrombosed. It measures 4.1 x 4.1 cm compared to previous measurement of 3.5 x 3.4 cm. There are mild degenerative changes in the spine. There is no pathologically enlarged adenopathy in the chest. There are bilateral renal cysts. IMPRESSION: Stable 4.6 x 4.2 cm ascending aortic aneurysm without evidence of dissection No evidence of central pulmonary embolism, however, again examination for pulmonary embolism is suboptimal due to bolus timing. Coronary artery calcification. A 4.1 cm partially visualized abdominal aortic aneurysm with some circumferential thrombus. Dictated by: Dictated on workstation # [id number]
[2021-11-09 06:42] LABS: CREATININE SERUM 0.84 MG/DL (0.60-1.30)
[2021-11-09 06:58] LABS: LYMPHOCYTES % (MANUAL) 9 %; MONOCYTES % (MANUAL) 1 %; NEUTROPHILS % (MANUAL) 90 %; RBC MORPH NORMAL
[2021-11-09] MEDS ORDERED: ONDANSETRON 4 MG/2 ML (SDV) Z0FRAN IV PRN (07:30)
[2021-11-09] MEDS ORDERED: LORazepam INJ 2 MG/ML (ATIVAN) VIAL IM PRN (07:30)
[2021-11-09] MEDS ORDERED: LORazepam INJ 2 MG/ML (ATIVAN) VIAL IV PRN (07:30)
[2021-11-09] MEDS ORDERED: ONDANSETRON 4 MG (ZOFRAN) ORAL DISSOLVE TAB PO PRN (07:30)
[2021-11-09] MEDS ORDERED: ANTACID SUSP 30 ML UDC (MYLANTA) PO PRN (07:30)
[2021-11-09 08:00] VITALS: BP 132/92
[2021-11-09] MEDS ORDERED: CLOPIDOGREL 300 MG (PLAVIX) TABLET PO NR (09:30)
--- NOTE | 2021-11-09 09:30 | Consultation-Cardiology ---
HPI-Cardiology Cardiology Consultation Date of Consultation 11/09/21 Date of Admission Time Seen by Provider: 09:25 Indication: Acute myocardial infarction HPI 61-year-old lady with history of substance abuse and aortic stenosis Came into the emergency room with recurrent chest pain, has been having dull achiness in the retrosternal area, reporting that she wanted to stop using drugs. She is aware of her aortic valve condition, she was seen by Dr. Modi, reported she forget to come to her appointments. On my evaluation she was feeling better, laying down comfortably in bed. Home Medications & Allergies Allergies: Coded Allergies: No Known Drug Allergies (Unverified , 03/01/19) Home Medication List Reviewed: Yes LGQ-Cqvoqp-Yxzbbp Hx Patient Social History Marital Status: single Employed/Student: unemployed Smoking Status: Current Everyday Smoker Type Used: Cigarettes 2nd Hand Smoke Exposure: Yes Recent Hopitalizations: No Have you traveled recently?: No Alcohol Use?: Yes Substance type: Amphetamines, Methamphetamine, Nicotine Past Medical History Discussed below Family Medical History Significant Family History: No Pertinent Family Hx Family Medical Hx Noncontributory Review of Systems-General Review of Systems Constitutional: no symptoms reported, see HPI, malaise EENTM: see HPI, no symptoms reported Respiratory: see HPI; No cough; dyspnea on exertion; No hemoptysis, No orthopnea, No phlegm, No stridor, No wheezing, No other Cardiovascular: see HPI, chest pain; No edema, No Hx of Intervention, No palpitations, No syncope, No vascular heart diseas, No other Gastrointestinal: no symptoms reported, see HPI Genitourinary: no symptoms reported, see HPI Musculoskeletal: no symptoms reported, see HPI Skin: no symptoms reported, see HPI Psychiatric/Neurological: Emotional Problems Reviewed Test Results Reviewed Test Results Lab Laboratory Tests Test 11/08/21 21:00 11/08/21 22:00 11/08/21 22:31 11/09/21 00:40 Range/Units White Blood Count 8.2 4.3-11.0 10^3/uL Red Blood Count 4.60 3.80-5.11 10^6/uL Hemoglobin 13.4 11.5-16.0 g/dL Hematocrit 42 35-52 % Mean Corpuscular Volume 90 80-99 fL Mean Corpuscular Hemoglobin 29 25-34 pg Mean Corpuscular Hemoglobin Concent 32 32-36 g/dL Red Cell Distribution Width 13.3 10.0-14.5 % Platelet Count 259 130-400 10^3/uL Mean Platelet Volume 11.1 9.0-12.2 fL Immature Granulocyte % (Auto) 0 % Neutrophils (%) (Auto) 66 42-75 % Lymphocytes (%) (Auto) 23 12-44 % Monocytes (%) (Auto) 8 0-12 % Eosinophils (%) (Auto) 3 0-10 % Basophils (%) (Auto) 1 0-10 % Neutrophils # (Auto) 5.4 1.8-7.8 10^3/uL Lymphocytes # (Auto) 1.9 1.0-4.0 10^3/uL Monocytes # (Auto) 0.7 0.0-1.0 10^3/uL Eosinophils # (Auto) 0.2 0.0-0.3 10^3/uL Basophils # (Auto) 0.0 0.0-0.1 10^3/uL Immature Granulocyte # (Auto) 0.0 0.0-0.1 10^3/uL Prothrombin Time 12.6 12.2-14.7 SEC INR Comment 0.9 0.8-1.4 Activated Partial Thromboplast Time 28 24-35 SEC D-Dimer 1.23 H 0.00-0.49 UG/ML Sodium Level 141 135-145 MMOL/L Potassium Level 3.8 3.6-5.0 MMOL/L Chloride Level 106 98-107 MMOL/L Carbon Dioxide Level 23 21-32 MMOL/L Anion Gap 12 5-14 MMOL/L Blood Urea Nitrogen 12 7-18 MG/DL Creatinine 0.90 0.60-1.30 MG/DL Estimat Glomerular Filtration Rate 74 BUN/Creatinine Ratio 13 Glucose Level 96 70-105 MG/DL Calcium Level 9.4 8.5-10.1 MG/DL Corrected Calcium 9.6 8.5-10.1 MG/DL Magnesium Level 1.9 1.6-2.4 MG/DL Total Bilirubin 0.4 0.1-1.0 MG/DL Aspartate Amino Transf (AST/SGOT) 16 5-34 U/L Alanine Aminotransferase (ALT/SGPT) 13 0-55 U/L Alkaline Phosphatase 83 40-136 U/L Troponin I 0.057 H 0.074 H <0.028 NG/ML B-Type Natriuretic Peptide 1887.6 H <100.0 PG/ML Total Protein 7.3 6.4-8.2 GM/DL Albumin 3.8 3.2-4.5 GM/DL Salicylates Level < 5.0 L 5.0-20.0 MG/DL Acetaminophen Level < 10 L 10-30 UG/ML Serum Alcohol < 10 <10 MG/DL Influenza Type A (RT-PCR) Not Detected Not Detecte Influenza Type B (RT-PCR) Not Detected Not Detecte SARS-CoV-2 RNA (RT-PCR) Not Detected Not Detecte Urine Color YELLOW Urine Clarity CLEAR Urine pH 6.0 5-9 Urine Specific Warren 1.025 H 1.016-1.022 Urine Protein NEGATIVE NEGATIVE Urine Glucose (UA) NEGATIVE NEGATIVE Urine Ketones NEGATIVE NEGATIVE Urine Nitrite NEGATIVE NEGATIVE Urine Bilirubin NEGATIVE NEGATIVE Urine Urobilinogen 0.2 < = 1.0 MG/DL Urine Leukocyte Esterase NEGATIVE NEGATIVE Urine RBC (Auto) NEGATIVE NEGATIVE Urine RBC NONE /HPF Urine WBC NONE /HPF Urine Squamous Epithelial Cells 0-2 /HPF Urine Crystals NONE /LPF Urine Bacteria NEGATIVE /HPF Urine Casts NONE /LPF Urine Mucus NEGATIVE /LPF Urine Culture Indicated NO Urine Opiates Screen NEGATIVE NEGATIVE Urine Oxycodone Screen NEGATIVE NEGATIVE Urine Methadone Screen NEGATIVE NEGATIVE Urine Propoxyphene Screen NEGATIVE NEGATIVE Urine Barbiturates Screen NEGATIVE NEGATIVE Ur Tricyclic Antidepressants Screen NEGATIVE NEGATIVE Urine Phencyclidine Screen NEGATIVE NEGATIVE Urine Amphetamines Screen POSITIVE H NEGATIVE Urine Methamphetamines Screen POSITIVE H NEGATIVE Urine Benzodiazepines Screen NEGATIVE NEGATIVE Urine Cocaine Screen NEGATIVE NEGATIVE Urine Cannabinoids Screen NEGATIVE NEGATIVE Test 11/09/21 05:14 Range/Units White Blood Count 7.5 4.3-11.0 10^3/uL Red Blood Count 4.92 3.80-5.11 10^6/uL Hemoglobin 14.1 11.5-16.0 g/dL Hematocrit 45 35-52 % Mean Corpuscular Volume 91 80-99 fL Mean Corpuscular Hemoglobin 29 25-34 pg Mean Corpuscular Hemoglobin Concent 32 32-36 g/dL Red Cell Distribution Width 13.5 10.0-14.5 % Platelet Count 255 130-400 10^3/uL Mean Platelet Volume 11.3 9.0-12.2 fL Immature Granulocyte % (Auto) 0 % Neutrophils (%) (Auto) 91 H 42-75 % Lymphocytes (%) (Auto) 8 L 12-44 % Monocytes (%) (Auto) 1 0-12 % Eosinophils (%) (Auto) 0 0-10 % Basophils (%) (Auto) 0 0-10 % Neutrophils # (Auto) 6.8 1.8-7.8 10^3/uL Lymphocytes # (Auto) 0.6 L 1.0-4.0 10^3/uL Monocytes # (Auto) 0.1 0.0-1.0 10^3/uL Eosinophils # (Auto) 0.0 0.0-0.3 10^3/uL Basophils # (Auto) 0.0 0.0-0.1 10^3/uL Immature Granulocyte # (Auto) 0.0 0.0-0.1 10^3/uL Neutrophils % (Manual) 90 % Lymphocytes % (Manual) 9 % Monocytes % (Manual) 1 % Blood Morphology Comment NORMAL Sodium Level 137 135-145 MMOL/L Potassium Level 4.3 3.6-5.0 MMOL/L Chloride Level 104 98-107 MMOL/L Carbon Dioxide Level 21 21-32 MMOL/L Anion Gap 12 5-14 MMOL/L Blood Urea Nitrogen 10 7-18 MG/DL Creatinine 0.84 0.60-1.30 MG/DL Estimat Glomerular Filtration Rate 80 BUN/Creatinine Ratio 12 Glucose Level 157 H 70-105 MG/DL Calcium Level 9.6 8.5-10.1 MG/DL Troponin I 0.052 H <0.028 NG/ML Physical Exam Physical Exam Vital Signs Vital Signs - First Documented 11/08/21 11/08/21 11/09/21 00:35 20:30 04:56 Temp 35.6 Pulse 95 Resp 20 B/P (MAP) 133/98 (110) Pulse Ox 100 O2 Delivery Nasal Cannula O2 Flow Rate 2.00 FiO2 28 Capillary Refill : Less Than 3 Seconds Height, Weight, BMI Height: '" Weight: lbs. oz. kg; 26.25 BMI Method: General Appearance: No Apparent Distress, WD/WN Eyes: Bilateral Eye Normal Inspection, Bilateral Eye PERRL, Bilateral Eye EOMI HEENT: PERRL/EOMI, TMs Normal, Normal ENT Inspection, Pharynx Normal, Moist Mucous Membranes Neck: Full Range of Motion, Normal Inspection, Non Tender, Supple, Carotid Bruit Respiratory: Chest Non Tender, Normal Breath Sounds, No Accessory Muscle Use, No Respiratory Distress Cardiovascular: Regular Rate, Rhythm, No Edema, No Gallop, No JVD, Normal Peripheral Pulses, Systolic Murmur Gastrointestinal: Normal Bowel Sounds, No Organomegaly, No Pulsatile Mass, Non Tender, Soft Back: Normal Inspection, No CVA Tenderness, No Vertebral Tenderness Extremity: Normal Capillary Refill, Normal Inspection, Normal Range of Motion, Non Tender, No Calf Tenderness, No Pedal Edema Neurologic/Psychiatric: Alert, Oriented x3, No Motor/Sensory Deficits, Normal Mood/Affect Skin: Normal Color, Warm/Dry Lymphatic: No Adenopathy A/P-Cardiology Admission Diagnosis Unstable angina Non-ST elevation myocardial infarction Aortic valve stenosis Thoracic aortic aneurysm Assessment/Plan Chest pain, unstable angina, most probably secondary to aortic stenosis. Non-ST elevation myocardial infarction, type II KS, troponin continue to be flat, most probably secondary to severe aortic stenosis. Discussed with the patient the need for compliance with medication. Conservative management is recommended at this time and recommend evaluating stress test as an outpatient Severe aortic stenosis, had aortic valve area of 0.8 cm, had an echo done with Dr. Modi. Will need evaluation for possible aortic valve replacement once she is compliant with medication and stop using illicit drugs. Thoracic aortic aneurysm with a thrombus in the aorta, started on aspirin and Plavix Cardiac catheterization will carry a higher risk of embolization and a stroke at this point. Patient will require aortic valve replacement and replacement of the thoracic aorta Consideration for CT angiogram of the coronaries can be done as an outpatient Methamphetamine use, patient is indicating that she wanted to stop using drugs, May benefit from detox program Tobaccoism, educated on smoking cessation SWATHI TOMPKINS MD Nov 09, 2021 09:30
--- NOTE | 2021-11-09 10:26 | History & Physical-Hospitalist ---
History of Present Illness HPI/Chief Complaint Pt is a 61yoCF with a PMH of arotic stenosis, bilateral PE, bipolar disorder who presented to the ER due to chest pain and SOB. She is little confused and states that she has been here for a few days when in fact she came in just this morning. She has a history of methamphetamine use that she reports that she snorts or eats and believes that she last used 3 to 7 days ago but is unsure. She states that she developed chest pain that she associated with shortness of breath. She described it as a tightness. Given her history of PE she wanted to be evaluated. CTA was done and was negative for pulmonary embolism but she was found to have an elevated troponin. She was admitted for further evaluation. She does report feeling better this morning. She just had an echo and would like to eat. She has many concerns regarding her living situation and would like very much to quit using illicit drugs. She states she cannot return home if she wants to meet that goal but may be able to go live with her daughter who will help her stay clean. She state smultiple times that she just needs to get back on her normal meds but she's unable to tell me what those are. She normally sees [facility] (Martínez Mcdonald NP and [facility] for her meds.) Source: patient Date Seen 11/09/21 Time Seen by a Provider: 10:21 Attending Physician Trisha,Local Physician PCP Admitting Physician: Kyleigh Brody MD Attending Physician: Kyleigh Brody MD Referring Physician Date of Admission Nov 09, 2021 at 01:35 Home Medications & Allergies Home Medications Reviewed patient Home Medication Reconciliation performed by pharmacy medication reconciliations cable television technician and/or nursing. Patients Allergies have been reviewed. Allergies Allergies Coded Allergies No Known Drug Allergies ([id number]/31/19) Past Rudavng-Afpedk-Nmtjsw Hx Patient Social History Marrital Status: single Employed/Student: unemployed Tobacco Use?: Yes Tobacco type used: Cigarettes Smoking Status: Current Everyday Smoker Smokeless Tobacco Frequency: Never a User Use of E-Cig and/or Vaping dev: No Substance use?: Yes Substance type: Amphetamines, Methamphetamine (snorts/eats- no IV use), Bigg malinda Substance frequency: Couple times a week Alcohol Use?: Yes Alcohol Frequency: Once in a while Pt feels they are or have been: No Immunizations Up To Date First/Initial COVID19 Vaccinat: UNVACCINATED Second COVID19 Vaccination Fabian: UNVACCINATED Tetanus Booster (TDap): Unknown Hepatitis A: No Hepatitis B: No PED Vaccines UTD: Yes Seasonal Allergies Seasonal Allergies: No Current Status status: No Advance Directives: No Communicates: Verbally Primary Language: Occitan Preferred Spoken Language: Occitan Is interpretation needed?: No Implanted or Applied Medical D: None Past Medical History Pulmonary Embolism Heart Attack, Hypertension Ulcer COVID 19 PE CHF LVEF 40-45% Family Medical History Reviewed Nursing Family Hx No Pertinent Family Hx Review of Systems Constitutional: No chills, No fever EENTM: no symptoms reported Respiratory: No cough; short of breath Cardiovascular: chest pain Gastrointestinal: no symptoms reported Genitourinary: no symptoms reported Musculoskeletal: no symptoms reported Skin: no symptoms reported Psychiatric/Neurological: No Symptoms Reported Physical Exam Physical Exam Vital Signs Vital Signs - First Documented 11/08/21 11/08/21 11/09/21 00:35 20:30 04:56 Temp 35.6 Pulse 95 Resp 20 B/P (MAP) 133/98 (110) Pulse Ox 100 O2 Delivery Nasal Cannula O2 Flow Rate 2.00 FiO2 28 Capillary Refill : Less Than 3 Seconds Height, Weight, BMI Height: '" Weight: lbs. oz. kg; 26.25 BMI Method: General Appearance: No Apparent Distress, Anxious, Chronically ill, Thin HEENT: PERRL/EOMI, Moist Mucous Membranes; No Scleral Icterus (L), No Scleral Icterus (R) Neck: Normal Inspection, Supple Respiratory: Lungs Clear, No Accessory Muscle Use, No Respiratory Distress Cardiovascular: Regular Rate, Rhythm, Systolic Murmur Gastrointestinal: Normal Bowel Sounds, Non Tender, Soft Extremity: No Calf Tenderness, No Pedal Edema Neurologic/Psychiatric: Alert, Oriented x3, Normal Mood/Affect Results Results/Procedures Labs Laboratory Tests 11/08/21 21:00 11/09/21 05:14 Patient resulted labs reviewed. Imaging: Reviewed Imaging Report Imaging [facility] [place], [place] NAME: MARICHUY BUSTAMANTE [facility] REC#: [id number] PT STATUS: REG ER : 1960 PHYSICIAN: KIKA JETER MD ADMIT DATE: 11/08/21/ER Signed Date of Exam:11/08/21 CHEST 1 VIEW, AP/PA ONLY INDICATION: Shortness of breath. EXAMINATION: Frontal chest was obtained at 9:00 p.m. COMPARISON: 10/20/2020. There is cardiomegaly. Aorta is tortuous and/or ectatic. There is no focal infiltrate or pneumothorax or pleural fluid. Compared to 10/20/2020, the diffuse bilateral infiltrates are much improved and essentially resolved. IMPRESSION: Cardiomegaly. No focal infiltrate or pleural fluid. Resolution of extensive infiltrates seen on 10/20/2020. Dictated by: Dictated on workstation # [id number] Dict: 11/08/212120 Trans: 11/08/212139 PJE [id number] Interpreted by: CRYS ARENAS MD Electronically signed by: CRYS ARENAS MD 11/08/212139 [facility] [place] [place] NAME: MARICHUY BUSTAMANTE [facility] REC#: [id number] PT STATUS: ADM IN : 1960 PHYSICIAN: KIKA JETER MD ADMIT DATE: 11/09/21/[facility] Signed Date of Exam:11/09/21 CT ANGIO CHEST W PROCEDURE: CT angiography of the chest with contrast. TECHNIQUE: Multiple contiguous axial images were obtained through the chest after uneventful bolus administration of intravenous contrast. 3D reconstructed CTA MIP acquisitions were also performed. Auto Exposure Controls were utilized during the CT exam to meet ALARA standards for radiation dose reduction. INDICATION: Chest pain and shortness of breath. Comparison is made with prior examination of 01/15/2021. FINDINGS: There is cardiomegaly. There is some left basilar atelectasis and/or pneumonitis. The ascending aorta measures 4.6 cm. There is no dissection. Evaluation for pulmonary embolism is somewhat limited due to suboptimal bolus timing. No obvious central or proximal pulmonary emboli are appreciated. There are coronary artery calcifications. There is no pleural or pericardial fluid. There is no pneumothorax. There is an infrarenal abdominal aortic aneurysm only partially imaged on this exam. This is partially thrombosed. It measures 4.1 x 4.1 cm compared to previous measurement of 3.5 x 3.4 cm. There are mild degenerative changes in the spine. There is no pathologically enlarged adenopathy in the chest. There are bilateral renal cysts. IMPRESSION: Stable 4.6 x 4.2 cm ascending aortic aneurysm without evidence of dissection No evidence of central pulmonary embolism, however, again examination for pulmonary embolism is suboptimal due to bolus timing. Coronary artery calcification. A 4.1 cm partially visualized abdominal aortic aneurysm with some circumferential thrombus. Dictated by: Dictated on workstation # [id number] Dict: 11/09/21618 Trans: 11/09/21799 JENNIFER [id number] Interpreted by: NITIN KENNEY MD Electronically signed by: NITIN KENNEY MD 11/09/21799 Assessment/Plan Admission Diagnosis NSTEMI Admission Status: Inpatient Order (span 2 midnights) Reason for Inpatient Admission: see below Assessment and Plan NSTEMI Aortic stenosis Aortic aneurysm- thoracic and abd Cardiology consulted, appreciate recs Outpatient stress test recommended ER discussed aneurysms with Vascular Surgery at [facility] who stated stable for outpatient follow up and no indication for transfer Echo ordered Troponin trended down Bipolar disorder Will attempt to get records from [facility] to clarify meds Methamphetamine use Encouraged cessation Hopefully will DC with daughter to hep ensure sobriety DVT ppx: Lovenox Diagnosis/Problems Diagnosis/Problems (1) NSTEMI (non-ST elevated myocardial infarction) Status: Acute (2) Aortic stenosis Status: Acute (3) Troponin level elevated (4) Thoracic aortic aneurysm without rupture (5) Methamphetamine addiction Status: Acute KYLEIGH BRODY MD Nov 09, 2021 10:26
[2021-11-09] MEDS: ASPIRIN E.C. 81 MG (ECOTRIN) TAB PO SCH (10:44)
[2021-11-09] MEDS: SENNA W/DOCUSATE (SENOKOT S) TABLET PO SCH ×2 (10:44→20:56)
[2021-11-09 12:00] VITALS: BP 124/88
[2021-11-09] MEDS: LOSARTAN 25 MG (COZAAR) TAB PO SCH (12:35)
[2021-11-09 15:34] VITALS: BP 108/84
[2021-11-09] MEDS: ENOXAPARIN 80 MG/0.8 ML (LOVENOX) SYR SC SCH (17:19)
[2021-11-09 19:46] VITALS: BP 108/82
[2021-11-09] MEDS ORDERED: NICOTINE 14 MG (NICODERM) PATCH TD ONE ×2 (20:45→20:48)
[2021-11-10] VITALS: BP 113/80
[2021-11-10] MEDS: ENOXAPARIN 80 MG/0.8 ML (LOVENOX) SYR SC SCH ×2 (03:33→17:44)
[2021-11-10 04:00] VITALS: BP 128/87
[2021-11-10 05:25] LABS: HEMATOCRIT 41 % (35-52); HEMOGLOBIN 13.1 g/dL (11.5-16.0); MEAN CORPUSCULAR HEMOGLOBIN 29 pg (25-34); MEAN CORPUSCULAR HGB CONC 32 g/dL (32-36); MEAN CORPUSCULAR VOLUME 91 fL (80-99); MEAN PLATELET VOLUME 11.4 fL (9.0-12.2); PLATELET COUNT 266 10^3/uL (130-400); WHITE BLOOD COUNT 11.6 10^3/uL (4.3-11.0)
[2021-11-10 05:44] LABS: POTASSIUM 3.9 MMOL/L (3.6-5.0)
[2021-11-10 05:45] LABS: CALCIUM 9.6 MG/DL (8.5-10.1)
[2021-11-10 05:50] LABS: CREATININE SERUM 0.86 MG/DL (0.60-1.30)
[2021-11-10] MEDS: CATHETER FLUSH 10 ML SYR IVP SCH ×3 (05:52→20:36)
[2021-11-10 07:51] VITALS: BP 116/81
[2021-11-10] MEDS: SENNA W/DOCUSATE (SENOKOT S) TABLET PO SCH ×2 (08:43→20:36)
[2021-11-10] MEDS: ASPIRIN E.C. 81 MG (ECOTRIN) TAB PO SCH (08:43)
[2021-11-10] MEDS: LOSARTAN 25 MG (COZAAR) TAB PO SCH (08:43)
[2021-11-10] MEDS: CLOPIDOGREL 75 MG (PLAVIX) TABLET PO SCH (08:43)
[2021-11-10] MEDS: NICOTINE 14 MG (NICODERM) PATCH TD SCH (08:44)
--- NOTE | 2021-11-10 09:19 | Cardiology Progress Note ---
Subjective Date Seen by Provider: Nov 10, 2021 Time Seen by Provider: 09:18 Subjective/Events-last exam Patient was seen at bedside, laying down comfortably. No new complaint. No chest pain. Review of Systems General: No Chills, No Night Sweats; Fatigue, Malaise; No Appetite, No Other HEENT: No Head Aches, No Visual Changes, No Eye Pain, No Ear Pain, No Dysphasia, No Sinus Congestion, No Post Nasal Drip, No Sore Throat, No Other Pulmonary: No Dyspnea, No Cough, No Pleuritic Chest Pain, No Other Cardiovascular: No: Chest Pain, Palpitations, Orthopnea, Paroxysmal Noc. Dyspnea, Edema, Lt Headedness, Other Objective-Cardiology Exam Last Set of Vital Signs Vital Signs 11/09/21 11/10/21 11/10/21 11/10/21 04:56 07:27 07:51 08:00 Temp 36.7 Pulse 73 Resp 20 B/P (MAP) 116/81 (93) Pulse Ox 95 O2 Delivery Room Air O2 Flow Rate 2.00 FiO2 28 I&O Intake and Output 11/10/21 00:00 Intake Total 1250 ml Balance 1250 ml Intake Oral 1250 ml # Voids 6 # Bowel Movements 1 Daily Weight Change Unsure General: Alert, Oriented X3, Cooperative HEENT: Atraumatic, PERRLA Neck: Supple, No JVD, No Thyromegaly Lungs: Clear to Auscultation, Normal Air Movement Heart: Regular Rate, Normal S1, Normal S2, Other (Aortic stenosis) Abdomen: Normal Bowel Sounds, Soft, No Tenderness, No Hepatosplenomegaly, No Masses Extremities: No Clubbing, No Cyanosis, No Edema, Normal Pulses, No Tenderness/Swelling Skin: No Rashes, No Breakdown, No Significant Lesion Neuro: Normal Gait, Normal Speech, Strength at 5/5 X4 Ext, Normal Tone, Sensation Intact Psych/Mental Status: Mental Status NL, Mood NL Results Lab Laboratory Tests 11/10/21 04:42 A/P-Cardiology Admission Diagnosis Unstable angina Non-ST elevation myocardial infarction Aortic valve stenosis Thoracic aortic aneurysm Assessment/Plan Chest pain, unstable angina, most probably secondary to aortic stenosis. Non-ST elevation myocardial infarction, type II TN, troponin continue to be flat, most probably secondary to severe aortic stenosis. Discussed with the patient the need for compliance with medication. Conservative management is recommended at this time and recommend evaluating stress test as an outpatient Severe aortic stenosis, had aortic valve area of 0.8 cm, had an echo done with Dr. Modi. Will need evaluation for possible aortic valve replacement once she is compliant with medication and stop using illicit drugs. Thoracic aortic aneurysm, abdominal aortic aneurysm with a thrombus in the aorta, started on aspirin and Plavix Patient will require aortic valve replacement and replacement of the thoracic aorta Consideration for CT angiogram of the coronaries can be done as an outpatient Methamphetamine use, patient is indicating that she wanted to stop using drugs, May benefit from detox program Tobaccoism, educated on smoking cessation SWATHI TOMPKINS MD Nov 10, 2021 09:19
[2021-11-10] MEDS ORDERED: GABAPENTIN 600 MG (NEURONTIN) TAB PO NR (10:30)
--- NOTE | 2021-11-10 10:31 | Progress Note - Hospitalist ---
Subjective HPI/CC On Admission Date Seen by Provider: Nov 10, 2021 Pt is a 61yoCF with a PMH of arotic stenosis, bilateral PE, bipolar disorder who presented to the ER due to chest pain and SOB. She is little confused and states that she has been here for a few days when in fact she came in just this morning. She has a history of methamphetamine use that she reports that she snorts or eats and believes that she last used 3 to 7 days ago but is unsure. She states that she developed chest pain that she associated with shortness of breath. She described it as a tightness. Given her history of PE she wanted to be evaluated. CTA was done and was negative for pulmonary embolism but she was found to have an elevated troponin. She was admitted for further evaluation. She does report feeling better this morning. She just had an echo and would l jc to eat. She has many concerns regarding her living situation and would like very much to quit using illicit drugs. She states she cannot return home if she wants to meet that goal but may be able to go live with her daughter who will help her stay clean. She state smultiple times that she just needs to get back on her normal meds but she's unable to tell me what those are. She normally sees [facility] (Martínez Mcdonald, [facility] and [facility] Subjective/Events-last exam Pt reports doing better today. Would like her gabapentin restarted. Objective Exam Vital Signs Vital Signs Date Time Temp Pulse Resp B/P (MAP) Pulse Ox O2 Delivery O2 Flow Rate FiO2 11/10/21 08:00 95 Room Air 11/10/21 07:51 36.7 73 20 116/81 (93) 11/10/21 07:27 2.00 11/09/21 04:56 28 Capillary Refill : Less Than 3 Seconds General Appearance: No Apparent Distress Respiratory: Lungs Clear, No Respiratory Distress Cardiovascular: Regular Rate, Rhythm, Systolic Murmur Neurologic/Psychiatric: Alert, Oriented x3 Results/Procedures Lab Laboratory Tests 11/10/21 04:42 Patient resulted labs reviewed. Imaging: Reviewed Imaging Report Assessment/Plan Assessment and Plan Assess & Plan/Chief Complaint NSTEMI Aortic stenosis Aortic aneurysm- thoracic and abd systolic HF Cardiology consulted, appreciate recs Outpatient stress test recommended ER discussed aneurysms with Vascular Surgery at [facility] who stated stable for outpatient follow up and no indication for transfer Echo with EF of 30% and severe aortic stenosis Troponin trended down Bipolar disorder Will attempt to get records from [facility] to clarify meds [facility] said they could not get records to us until Thursday Methamphetamine use tobacco abuse Encouraged cessation Hopefully will DC with daughter to hep ensure sobriety client services administrator consulted DVT ppx: Lovenox Diagnosis/Problems Diagnosis/Problems (1) NSTEMI (non-ST elevated myocardial infarction) Status: Acute (2) Aortic stenosis Status: Acute (3) Troponin level elevated (4) Thoracic aortic aneurysm without rupture (5) Methamphetamine addiction Status: Acute KYLEIGH TORRES MD Nov 10, 2021 10:31
[2021-11-10 11:54] VITALS: BP 116/75
[2021-11-10 15:33] VITALS: BP 107/58
[2021-11-10 19:31] VITALS: BP 94/59
[2021-11-10] MEDS: GABAPENTIN 600 MG (NEURONTIN) TAB PO SCH (20:36)
[2021-11-11] VITALS: BP 81/57
[2021-11-11] MEDS: ENOXAPARIN 80 MG/0.8 ML (LOVENOX) SYR SC SCH (03:44)
[2021-11-11 04:00] VITALS: BP 97/61
[2021-11-11 05:43] LABS: HEMATOCRIT 43 % (35-52); HEMOGLOBIN 13.6 g/dL (11.5-16.0); MEAN CORPUSCULAR HEMOGLOBIN 29 pg (25-34); MEAN CORPUSCULAR HGB CONC 32 g/dL (32-36); MEAN CORPUSCULAR VOLUME 92 fL (80-99); PLATELET COUNT 253 10^3/uL (130-400); WHITE BLOOD COUNT 8.4 10^3/uL (4.3-11.0)
[2021-11-11 06:01] LABS: CALCIUM 9.1 MG/DL (8.5-10.1); CREATININE SERUM 0.93 MG/DL (0.60-1.30); POTASSIUM 4.4 MMOL/L (3.6-5.0)
[2021-11-11] MEDS: CATHETER FLUSH 10 ML SYR IVP SCH (06:10)
[2021-11-11 08:00] VITALS: BP 99/62
[2021-11-11] MEDS: LOSARTAN 25 MG (COZAAR) TAB PO SCH (09:00)
[2021-11-11] MEDS: SENNA W/DOCUSATE (SENOKOT S) TABLET PO SCH (09:06)
[2021-11-11] MEDS: ASPIRIN E.C. 81 MG (ECOTRIN) TAB PO SCH (09:06)
[2021-11-11] MEDS: GABAPENTIN 600 MG (NEURONTIN) TAB PO SCH (09:06)
[2021-11-11] MEDS: CLOPIDOGREL 75 MG (PLAVIX) TABLET PO SCH (09:06)
[2021-11-11] MEDS: NICOTINE 14 MG (NICODERM) PATCH TD SCH (09:07)
--- NOTE | 2021-11-11 09:39 | Cardiology Progress Note ---
Progress Note-Cardiology Events since last exam Date Seen by Provider: Nov 11, 2021 Time Seen by Provider: 09:38 Events since last exam I am following her due to NSTEMI and aortic stenosis. Her breathing is much improved. She denies chest pain, palpitations, syncope, or ankle edema. She would like to go home today. Certain portions of this document may have been dictated utilizing voice recognition technology. Inherent to this technology, typographical and grammatical errors may exist. As much as I am diligent to identify and correct these mistakes, some errors may remain in the document. Vitals Last set of Vitals Signs Vital Signs 11/09/21 11/11/21 11/11/21 04:56 08:00 12:24 Temp 37.0 Pulse 81 Resp 14 B/P (MAP) 99/62 (74) Pulse Ox 96 O2 Delivery Room Air O2 Flow Rate 2.00 FiO2 28 Labs Labs Laboratory Tests 11/11/21 05:18 Exam Vital Signs Vital Signs Date Time Temp Pulse Resp B/P (MAP) Pulse Ox O2 Delivery O2 Flow Rate FiO2 11/11/21 12:24 81 11/11/21 08:00 96 Room Air 11/11/21 08:00 37.0 14 99/62 (74) 2.00 11/09/21 04:56 28 Physical Exam General: Alert. No acute distress. Eye: No xanthelasma. HENT: Normocephalic. Neck: Jugular venous pressure does not appear elevated. Respiratory: Lungs are clear to auscultation. Respirations are non-labored. Breath sounds are equal. Symmetrical chest wall expansion. Cardiovascular: Normal rate. Regular rhythm. 2/6 systolic ejection murmur. No gallop. No edema. Gastrointestinal: Soft. Normal bowel sounds. Skin: Warm. Dry. Neurologic: Alert and oriented to person, place, time. Cranial nerves 3-11 grossly intact. Psychiatric: Cooperative. Appropriate mood & affect. Labs Laboratory Tests Test 11/11/21 05:18 11/11/21 05:28 Range/Units White Blood Count 8.4 4.3-11.0 10^3/uL Red Blood Count 4.62 3.80-5.11 10^6/uL Hemoglobin 13.6 11.5-16.0 g/dL Hematocrit 43 35-52 % Mean Corpuscular Volume 92 80-99 fL Mean Corpuscular Hemoglobin 29 25-34 pg Mean Corpuscular Hemoglobin Concent 32 32-36 g/dL Red Cell Distribution Width 13.6 10.0-14.5 % Platelet Count 253 130-400 10^3/uL Mean Platelet Volume 11.0 9.0-12.2 fL Sodium Level 140 135-145 MMOL/L Potassium Level 4.4 3.6-5.0 MMOL/L Chloride Level 103 98-107 MMOL/L Carbon Dioxide Level 27 21-32 MMOL/L Anion Gap 10 5-14 MMOL/L Blood Urea Nitrogen 18 7-18 MG/DL Creatinine 0.93 0.60-1.30 MG/DL Estimat Glomerular Filtration Rate 71 BUN/Creatinine Ratio 19 Glucose Level 91 70-105 MG/DL Calcium Level 9.1 8.5-10.1 MG/DL Triglycerides Level 139 <150 MG/DL Cholesterol Level 183 < 200 MG/DL LDL Cholesterol Direct 115 1-129 MG/DL VLDL Cholesterol 28 5-40 MG/DL HDL Cholesterol 52 40-60 MG/DL Thyroid Stimulating Hormone (TSH) 0.55 0.35-4.94 UIU/ML Diagnosis/Problems Diagnosis/Problems (1) Non-ST elevation myocardial infarction (NSTEMI), initial care episode Assessment & Plan: She may have suffered a type II non-ST elevation myocardial infarction. She is not having any angina. She is on aspirin, clopidogrel and beta-navid. I will also add intensive dose statin medication. At some point, we may need to consider an ischemic evaluation. This can certainly be arranged as an outpatient. She would need to be abstinent from illicit drugs before I would proceed with any sort of ischemic evaluation since ongoing use of illicit drugs would put her at increased risk of complications from any sort of coronary revascularization if needed. (2) Aortic stenosis Status: Acute Assessment & Plan: She has moderate aortic stenosis. This may have contributed to her dyspnea. This will need to be followed longitudinally. When I first met her in 2020, she had been scheduled for follow-up visits but then forgot the appointment date and time. I have asked the hospital staff to get her a follow- up appointment with me in the office within 1 month. (3) Cardiomyopathy Assessment & Plan: Her echocardiogram from this admission showed moderate left ventricular systolic dysfunction. She should continue on carvedilol and losartan. Given her current social situation and living situation, I am concerned that she would not be compliant with a LifeVest and therefore I have not ordered this. I will plan to titrate guideline directed medical therapy as an outpatient assuming she follows up with me as planned. (4) Thoracic aortic aneurysm without rupture Assessment & Plan: This will need further evaluation if she can get to the point where she can be compliant with abstinence from illegal drugs and compliant with medical therapy. (5) Methamphetamine abuse Assessment & Plan: She states that she is done with feta means and does not plan to restart these. I would want to see at least 90 days of sobriety before considering any sort of evaluation for coronary ischemia and/or aortic valve replacement. (6) Cigarette smoker Assessment & Plan: She had quit smoking in the past but then recently restarted. Cigarette smoking cessation was strongly encouraged. SHILOH AVELAR JR, MD Nov 11, 2021 09:39
[2021-11-11] MEDS ORDERED: ATOR20TA66 PO ×2 (09:50→13:22)
[2021-11-11] MEDS ORDERED: ASPI81TA64 PO ×2 (09:50→13:22)
[2021-11-11] MEDS ORDERED: CARV3.122 PO ×2 (09:50→13:22)
[2021-11-11] MEDS ORDERED: LAMO25TA75 PO ×2 (09:50→13:22)
[2021-11-11] MEDS ORDERED: CLOP75TA28 PO ×2 (09:50→13:22)
[2021-11-11] MEDS ORDERED: RIVA20TA2 PO ×2 (09:50→13:22)
[2021-11-11] MEDS ORDERED: GBPN600T PO ×2 (09:50→13:22)
[2021-11-11 13:06] VITALS: BP 99/62
[2021-11-11] MEDS ORDERED: ROSUVASTATIN 20 MG (CRESTOR) TABLET PO SCH (21:00)
--- NOTE | 2021-11-11 21:39 | Discharge Summary ---
Discharge Summary Hospital Course Was the Problem List Reviewed?: Yes Problems/Dx: (1) Non-ST elevation myocardial infarction (NSTEMI), initial care episode (2) Aortic stenosis Status: Acute (3) Cardiomyopathy (4) Thoracic aortic aneurysm without rupture (5) Methamphetamine abuse (6) Cigarette smoker Hospital Course Date of Admission: Nov 09, 2021 at 01:35 Admission Diagnosis : NSTEMI Family Physician/Provider: Trisha,Local Physician Date of Discharge: 11/11/21 Discharge Diagnosis: NSTEMI, severe aortic stenosis, HFrEF, TAA, AAA, methamphetamine abuse Hospital Course: Porsche López is 61 year old female who presented with chest pain and was admitted with NSTEMI. Cardiology was consulted and assisted with her care. They recommended conservative management. She was continued on aspirin and started on plavix. She had an echo which showed reduced EF 30-35%. She was started on Coreg. She was also found to have both a thoracic aortic aneurysm and an a bdominal aortic aneurysm. She should follow up with Dr. Modi as an outpatient for possible stress test. She was recommended to abstain from methamphetamine and tobacco use. She was discharged home in stable condition. [place] [facility] Labs and Pending Lab Test: Laboratory Tests 11/11/21 05:18: White Blood Count 8.4, Red Blood Count 4.62, Hemoglobin 13.6, Hematocrit 43, Mean Corpuscular Volume 92, Mean Corpuscular Hemoglobin 29, Mean Corpuscular Hemoglobin Concent 32, Red Cell Distribution Width 13.6, Platelet Count 253, Mean Platelet Volume 11.0, Sodium Level 140, Potassium Level 4.4, Chloride Level 103, Carbon Dioxide Level 27, Anion Gap 10, Blood Urea Nitrogen 18, Creatinine 0.93, Estimat Glomerular Filtration Rate 71, BUN/Creatinine Ratio 19, Glucose Level 91, Calcium Level 9.1 11/11/21 05:28: Triglycerides Level 139, Cholesterol Level 183, LDL Cholesterol Direct 115, VLDL Cholesterol 28, HDL Cholesterol 52, Thyroid Stimulating Hormone (TSH) 0.55 Home Meds Active Clopidogrel (Clopidogrel Bisulfate) 75 Mg Tablet 75 Mg PO DAILY 30 Days Carvedilol 3.125 Mg Tablet 3.125 Mg PO BID 30 Days Children's Aspirin (Aspirin) 81 Mg Tab.chew 81 Mg PO DAILY 30 Days Atorvastatin Calcium 20 Mg Tablet 20 Mg PO HS 30 Days Xarelto Tablet (Rivaroxaban) 20 Mg Tablet 20 Mg PO DAILY@1700 30 Days Gabapentin 600 Mg Tablet 600 Mg PO BID 30 Days Lamictal (Lamotrigine) 25 Mg Tablet 25 Mg PO BID 30 Days Nicoderm Cq (Nicotine) 1 Each Patch.td24 14 Mg TD DAILY@0900 Reported Albuterol Sulfate 2.5 Mg/0.5 Ml Vial.neb 2.5 Mg INH Q4- 6H PRN Symbicort 160-4.5 Mcg Inhaler (Budesonide/Formoterol Fumarate) 10.2 Gm Hfa.aer.ad 2 Puff IH BID Assessment/Pt Instructions See instructions Discharge Planning: >30 minutes discharge planning Discharge Instructions Discharge Diet: Low Sodium Diet Consultations Cardiology Discharge Physical Examination Vital Signs Vital Signs Date Time Temp Pulse Resp B/P (MAP) Pulse Ox O2 Delivery O2 Flow Rate FiO2 11/11/21 13:06 36.9 81 14 99/62 96 Room Air 11/11/21 08:00 2.00 11/09/21 04:56 28 General Appearance: No Apparent Distress, Anxious Respiratory: Lungs Clear, No Respiratory Distress Cardiovascular: Regular Rate, Rhythm, No Murmur Gastrointestinal: Normal Bowel Sounds, Soft Extremity: Normal Inspection, No Pedal Edema Skin: Normal Color, Warm/Dry Neurologic/Psychiatric: Alert, No Motor/Sensory Deficits Allergies: Coded Allergies: No Known Drug Allergies (Unverified , 03/01/19) Copy Copies To 1: [facility] [place] Discharge Summary Date of Admission Nov 09, 2021 at 01:35 Date of Discharge Nov 11, 2021 at 13:06 Discharge Date: Nov 11, 2021 Discharge Time: 13:06 Admission Diagnosis NSTEMI Consults/Procedures Consulations Cardiology Discharge Diagnosis (1) Non-ST elevation myocardial infarction (NSTEMI), initial care episode (2) Aortic stenosis Status: Acute (3) Cardiomyopathy (4) Thoracic aortic aneurysm without rupture (5) Methamphetamine abuse (6) Cigarette smoker RACHEL PATRICK MD Nov 11, 2021 21:22
--- NOTE | 2021-11-14 06:52 | Physician Query Clarification ---
PQ-CHF Specificity Admission Date: Nov 09, 2021 at 01:35 Discharge Date: Nov 11, 2021 at 13:06 RACHEL Lawrence MD The medical record reflects the following clinical scenario: History/Risk Factors: 61 y/o female patient presented with chest pain and admitted with NSTEMI, HFREF was documented in medical record. H&P, 11/09: NSTEMI, aortic stenosis, aortic aneurysm. Cardiology progress notes, 11/10: Unstable angina, NSTEMI, aortic valve stenosis, thoracic aortic aneurysm. Discharge summary, 11/11: NSTEMI, severe aortic stenosis, HFREF, thoracic aortic aneurysm, abdominal aortic aneurysm. Clinical Findings: Echo showed reduced EF 30-35%, BNP- 1887.6 H Treatment: Coreg, Aspirin and Plavix. Question: Can you further specify the acuity &/or type of CHF per the clinical indicators above? Please document a response in the Progress Notes or Discharge Summary. 1. Acuity: Acute, Chronic or Acute on Chronic 2. Type: Systolic, Diastolic or Systolic & Diastolic 3. Unspecified: CHF cannot be further specified regarding type or acuity 4. Other, with explanation of clinical findings 5. Clinically undetermined, no explanation for clinical findings PHYSICIAN RESPONSE Acuity: Acute Type: Systolic In responding to this query, please exercise your independent professional judgment. The purpose of this communication is to more accurately reflect the complexity of your patients condition. The fact that a question is asked does not imply that any particular answer is desired or expected. Thank you for your timely response to this clarification. Requestors name: [ ] Phone # [ ] THIS PHYSICIAN QUERY FORM IS A PERMANENT PART OF THE MEDICAL RECORD EVA ACUÑA Nov 14, 2021 06:52 RACHEL PATRICK MD Nov 27, 2021 21:10
== END 2021-11-11 13:06 | disposition home or self-care (01) | DRG 280 ==
LOC: EDUNIT# 20:27 → ER 20:28 → CSD 11-09 01:35
PROVIDERS: ADMIT Family Medicine; ATTEND Internal Medicine
DX: I35.0 Nonrheumatic aortic (valve) stenosis (principal); I21.A1 Myocardial infarction type 2; I50.21 Acute systolic (congestive) heart failure; F15.20 Other stimulant dependence, uncomplicated; J44.1 Chronic obstructive pulmonary disease with (acute) exacerbation; I42.9 Cardiomyopathy, unspecified; I20.0 Unstable angina; Z20.822 Contact with and (suspected) exposure to COVID-19; I11.0 Hypertensive heart disease with heart failure; F31.9 Bipolar disorder, unspecified; F17.210 Nicotine dependence, cigarettes, uncomplicated; I71.4 Abdominal aortic aneurysm, without rupture; U09.9 Post COVID-19 condition, unspecified; I71.2 Thoracic aortic aneurysm, without rupture; Z79.82 Long term (current) use of aspirin; Z79.899 Other long term (current) drug therapy; Z86.711 Personal history of pulmonary embolism; I25.2 Old myocardial infarction
CPT/HCPCS: 36415; 71045; 71275; 80048; 80053; 80061; 80306; 80320; 80329; 81000; 83735; 83880; 84443; 84484; 85007; 85025; 85027; 85379; 85610; 85730; 87636; 93005; 93306; 94640; 94760; 96372; 96374; 96375